=== PATIENT | male | born 1930 | race Caucasian/White ===

== ENCOUNTER 2017-02-28 21:56 | Emergency (ER) | payer MEDICARE, OTHER ==
[2017-02-28] MEDS ORDERED: Sodium Chloride 0.9% 10 ML Syringe FLUSH PRN (22:01)
[2017-02-28] MEDS ORDERED: Famotidine 20 MG/2 ML SDV IVPUSH ONE (22:01)
--- NOTE | 2017-02-28 22:07 | EDM.PDOC ---
ED HPI GENERAL MEDICAL PROBLEM - General Chief Complaint: General Stated Complaint: Stroke Time Seen by Provider: 02/28/17 22:01 Source of Information: Reports: Patient, Family (, daughter x2), Old records ([facility] chart/EMR) History Limitations: Reports: No limitations - History of Present Illness INITIAL COMMENTS - FREE TEXT/NARRATIVE: The patient was brought to the emergency room via private automobile by his and 2 daughters for evaluation of a probable TIA versus CVA. The patient experienced some moderate speech apraxia at about 19:00 hours this evening with symptoms lasting for about 45 minutes. No history of fall, injury, headaches, visual changes, or other neurological deficits with the patient walking into the emergency room with no difficulty. He does normally use a cane. The patient denies any chest pain/pressure, heart flutter, dizziness, orthostasis, orthopnea, diaphoresis, paresthesias, recent decreased exercise tolerance, or any other anginal-type symptoms. No recent history of abdominal pain, heartburn , nausea, diarrhea, melena, gross hematochezia, or any food intolerance, including fatty foods, etc.. The patient also denies any recent fever, cough, wheezing, dyspnea, etc.. 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 (see below) (None) - Related Data Allergies Allergy/AdvReac Type Severity Reaction Status Date / Time Penicillins Allergy Hives Verified 10/30/15 00:22 Bipnsdl-Rep-Jft Reductase Allergy Hives Verified 10/30/15 00:22 Inhibitor Sulfa (Sulfonamide Allergy Hives Verified 10/30/15 00:22 Antibiotics) Home Meds: Home Meds Acetaminophen [Tylenol] 325 - 650 mg PO Q4HR PRN 05/11/14 [History] Clopidogrel [Plavix] 75 mg PO QAM 05/11/14 [History] Docusate Sodium [Colace] 100 mg PO DAILY 05/11/14 [History] Fluticasone Propionate [Flonase] 16 gm NS BID 05/11/14 [History] Levothyroxine 112 mcg PO QAM 05/11/14 [History] Metoprolol Tartrate 25 mg PO QPM 05/11/14 [History] Nitroglycerin [Nitrostat] 0.4 mg SL ASDIRECTED PRN 05/11/14 [History] Omeprazole 20 mg PO QAM 05/11/14 [History] Aspirin [Bret Chewable Aspirin] 81 mg PO DAILY 12/16/14 [History] Past Medical History HEENT History: Reports: Allergic rhinitis, Cataract, Hard of hearing, Impaired vision, Macular degeneration, Other (see below). 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 Denies : Afib, Aneurysm, Blood clots/VTE/DVT, Heart murmur, Pacemaker Other Cardiovascular History: DC in September 2012 with cardiac procedures as below, history of PACs and chronic bradycardia with secondary near syncope, borderline incomplete right bundle branch block Respiratory History: Reports: COPD, Intubation, previous, Other (see below). Denies: Intubation, difficult, PE, Sleep apnea Other Respiratory History: COPD and pulmonary fibrosis by chest x-ray with no current medical therapy Gastrointestinal History: Reports: Chronic constipation, Gastritis, GERD, Hiatal hernia. Denies: Hepatitis Genitourinary History: Reports: BPH. Denies: Chronic renal insuffiency, Renal calculus, STD, Urinary incontinence Musculoskeletal History: Reports: Back pain, chronic, Fracture, Osteoarthritis, Other (see below) Other Musculoskeletal History: Chronic Low back pain with low back injury in the , fracture of the right wrist Neurological History: Reports: None. Denies: Cerebral aneurysms, CVA, Headaches , chronic, Migraines, Seizure, TIA Psychiatric History: Reports: Anxiety, Depression Endocrine/Metabolic History: Reports: Hypothyroidism. Denies: Diabetes, type I , Diabetes, type II, IDDM Hematologic History: Reports: None. Denies: Anemia, Blood transfusion(s) Immunologic History: Reports: None. Denies: AIDS, HIV, SLE Oncologic (Cancer) History: Reports: Basal cell carcinoma, Other (see below). Denies: Colon, Hodgkin's Lymphoma, Leukemia, Malignant melanoma, Non-Hodgkin's Lymphoma, Prostate Other Oncologic History: Basal cell carcinoma of the right cheek in about 2009, actinic keratosis Dermatologic History: Reports: Other (see below). Denies: Eczema, Psoriasis Other Dermatologic History: Skin cancer and actinic keratosis as above - Infectious Disease History Infectious Disease History: Reports: Chicken pox. Denies: C-difficile, Measles , MRSA, Mumps, Pertussis (whooping cough), Rheumatic Fever, Rubella, Scarlet fever, VRE - Past Surgical History Head Surgeries/Procedures: Reports: None HEENT Surgical History: Reports: Cataract surgery, Oral surgery, Other (see below) Other HEENT Surgeries/Procedures: Right-sided cataract surgery in January 2012 with left-sided cataract surgery in about 2014, multiple teeth extractions with only a few remaining lowers and complete upper dentures Cardiovascular Surgical History: Reports: Coronary artery bypass, Coronary artery stent, Other (see below). Denies: Pacer Other Cardiovascular Surgeries/Procedures: PTCA/stents x2 on 10/02/12 Respiratory Surgical History: Reports: None GI Surgical History: Reports: Hernia, inguinal, Other (see below) Other GI Surgeries/Procedures: Left inguinal hernia repair in the - Past Imaging History Past Imaging History: Reports: Stress testing (Low level cardiac stress test on 11/29/12) Social & Family History - Family History Cardiac: Reports: CAD, Heart failure, DC, Other (see below) Other Cardiac Family History: Mother with fatal CHF in her mid 70s, father with fatal DC in his early 70s - Tobacco Use Smoking Status *Q: Former Smoker Tobacco Use Within Last Twelve Months: No Years of Tobacco use: 6 Packs/Tins Daily: 1 (Stopped smoking in 1964) Used Tobacco, but Quit: Yes Month Tobacco Last Used: 1964 Second Hand Smoke Exposure: No Second Hand Smoke Education Provided: No - Alcohol Use Alcohol Use History: Yes Days Per Week of Alcohol Use: 7 (No previous DWIs, problems with alcohol abuse, etc.) Number of Drinks Per Day: 1 Total Drinks Per Week: 7 Alcohol Use in Last Twelve Months: Yes Alcohol Use Frequency: Socially - Recreational Drug Use Recreational Drug Use: No Drug Use in Last 12 Months: No - Living Situation & Occupation Living situation: Reports: (1952, 4 children), with family () 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 Denies: Dental pain, Ear discharge, Ear pain, Eye discharge, Eye pain, Nose pain, Rhinitis, Sinus problem, Throat pain, Throat swelling, Vertigo, Vision change Respiratory: Reports: No Symptoms. Denies: Shortness of Breath, Wheezing, Pleuritic Chest Pain, Cough, Sputum Cardiovascular: Reports: No symptoms. Denies: Chest pain, Blood pressure problem, Claudication, Dyspnea on exertion, Edema, Lightheadedness, Orthopnea, Palpitations, PND, Syncope Endocrine: Reports: no symptoms. Denies: fatigue GI/Abdominal: Reports: No symptoms. Denies: Abdominal pain, Anorexia, Black stool, Bloody stool, Constipation, Diarrhea, Decreased appetite, Difficulty swallowing, Distension, Flatus, Hematemesis, Hematochezia, Melena, Mucous in stool, Nausea, Stool incontinence, Vomiting : Reports: no symptoms. Denies: discharge, dysuria, flank pain, frequency, hematuria, incontinence, irregular menses, pain, urgency, urinary retention Musculoskeletal: Reports: no symptoms. Denies: neck pain, shoulder pain, arm pain, back pain, leg pain Skin: Reports: no symptoms, pruritis. Denies: diaphoresis, bruising, wound Neurological: Reports: Trouble Speaking (Speech apraxia as above), Change in Speech (As above). Denies: Confusion, Dizziness, Headache, Paresthesia, Difficulty Walking, Weakness (Denies), Gait Disturbance Psychiatric: Reports: No symptoms. Denies: Agitation, Anxiety, Confusion, Depression, Hallucinations, Suicidal ideation Hematologic/Lymphatic: Reports: no symptoms Immunologic: Reports: no symptoms ED EXAM, GENERAL - Physical Exam Exam: See Below Exam Limited By: No limitations General Appearance: alert, WD/WN, no apparent distress Eye Exam: bilateral eye: EOMI, normal fundi, normal inspection (No nystagmus), PERRL Ears: normal external exam, normal canal, normal TMs, hearing loss (Severe bilateral presbycusis with the patient not wearing his hearing aids today) Nose: normal inspection, normal mucosa, no blood Throat/Mouth: Normal inspection, Normal lips, Normal gums, Normal oropharynx, Normal voice, No airway compromise. No: Normal teeth (Complete upper dentures with only a few remaining lower dentition in somewhat poor repair), Dysphagia, Perioral cyanosis Head: atraumatic, normocephalic. No: facial swelling, facial tenderness, sinus tenderness Neck: supple, non-tender, full range of motion, carotid bruit (Mild bilateral carotid bruits versus transmitted heart sounds). No: lymphadenopathy (L), lymphadenopathy (R), thyromegaly Respiratory/Chest: no respiratory distress, lungs clear, normal breath sounds, no accessory muscle use, chest non-tender. No: pleural rub, retractions Cardiovascular: normal peripheral pulses, no edema, no gallop, no JVD, no murmur , no rub, systolic murmur (1/6 JORGE A at the aortic valve), extra beats ( Occasional PVCs as below). No: regular rate, rhythm (Regular rate with extrasystoles as below), gallop/S3, gallop/S4, friction rub Peripheral Pulses: 2+: radial (L), radial (R), dorsalis pedis (L), dorsalis pedis (R) GI/Abdominal: normal bowel sounds, soft, non tender, no organomegaly, no distention, no abnormal bruit, no mass. No: guarding, rebound (Male) Exam: Deferred Rectal (Males) Exam: Deferred Back Exam: normal inspection, full range of motion. No: CVA tenderness (L), CVA tenderness (R), muscle spasm Extremities: normal inspection, normal range of motion, non-tender, no pedal edema, normal capillary refill. No: Marlon's Sign Neurological: alert, oriented, CN II-XII intact, normal cognition, normal gait, normal reflexes (Negative Babinski's, finger to nose, and pronator rotation tests. No evidence of facial paresis, tongue deviation, orthostasis, etc.. Excellent reverse thought processes.), other (Borderline left leg weakness and right facial paresis, an NIH score of 1, completely resolved previous speech apraxia) Psychiatric: normal affect, normal mood Skin Exam: Warm, Dry, Intact, Normal color, No rash. No: Diaphoretic, Wound/ incision Lymphatic: no adenopathy EKG INTERPRETATION EKG Date: 02/28/17 Time: 22:14 Rhythm: NSR (With PVCs) Rate (beats/min): 64 [place]: LAD-left axis deviation (Extended left cardiac axis) P-wave: present (Diffuse biphasic P waves with extreme poor R-wave progression in the anterior leads) QRS: wide (QRS interval of 0.10 seconds representing repolarization changes) ST-T: normal QT: normal OR/PQ Interval: 0.19 seconds Comparison: no change (From previous EKG on 03/14/15) EKG Interpretation Comments: 1. No acute ischemic changes 2. PVCs Course - Vital Signs Last Recorded V/S: Last Vital Signs Temp 36.8 C 02/28/17 21:57 Pulse 67 02/28/17 22:01 Resp 18 02/28/17 22:01 BP 150/81 H 02/28/17 22:01 Pulse Ox 97 02/28/17 22:01 Vital Signs - 24 hr 02/28/17 02/28/17 02/28/17 21:57 22:01 22:25 Temperature [ 36.8 C 37.0 C Oral] Pulse, 65 67 64 Peripheral [ Left Pulse Oximetry] Respiratory 20 18 16 Rate Blood Pressure 150/81 H 150/81 H 151/74 H [Right Upper Arm] O2 Sat by Pulse 100 97 97 Oximetry 02/28/17 02/28/17 22:55 23:05 Temperature [ Oral] Pulse, 63 64 Peripheral [ Left Pulse Oximetry] Respiratory 16 15 Rate Blood Pressure 160/77 H 151/72 H [Right Upper Arm] O2 Sat by Pulse 98 97 Oximetry - Orders/Labs/Meds Orders: Active Orders 24 hr Category Date Time Status Blood Glucose Check, Bedside [RC] STAT Care 02/28/17 22:01 Active Cardiac Monitoring [RC] STAT Care 02/28/17 22:01 Active EKG Documentation Completion [RC] ASDIRECTED Care 02/28/17 22:01 Active NIH Stroke Scale [RC] ASDIRECTED Care 02/28/17 22:01 Active Oxygen Therapy, ED [RC] CONTINUOUS Care 02/28/17 22:01 Active Peripheral IV Care [RC] . DIRECTED Care 02/28/17 22:01 Active Pulse Oximetry [RC] CONTINUOUS Care 02/28/17 22:01 Active Up With Assistance [RC] ASDIRECTED Care 02/28/17 22:01 Active Vital Signs [RC] PFP Care 02/28/17 22:01 Active Nothing per Oral Now Diet [DIET] Diet 02/28/17 Breakfast Active Chest 1V Frontal [CR] Stat Exams 02/28/17 22:01 Taken Head wo Cont [CT] Stat Exams 02/28/17 22:01 Taken PROLACTIN [REF] Stat Lab 02/28/17 22:01 Ordered Sodium Chloride 0.9% [Saline Flush] Med 02/28/17 22:01 Active 10 ml FLUSH ASDIRECTED PRN Obtain Past Medical Record [OM.PC] Stat Oth 02/28/17 22:01 Active Peripheral IV Insertion Adult [OM.PC] Stat Oth 02/28/17 22:01 Ordered Resuscitation Status Stat Resus Stat 02/28/17 22:01 Ordered Medication Orders Sodium Chloride (Saline Flush) 10 ml FLUSH ASDIRECTED PRN PRN Reason: Keep Vein Open Labs: Laboratory Tests 02/28/17 02/28/17 02/28/17 Range/Units 22:15 22:15 22:15 WBC 4.8 (4.0-10.2) K/uL RBC 4.82 (4.33-5.41) M/uL Hgb 14.7 (13.1-16.8) g/dL Hct 41.8 (39.0-49.0) % MCV 86.7 (84.0-98.0) fL MCH 30.5 (28.2-33.3) pg MCHC 35.2 (31.7-36.0) g/dL RDW 13.2 (11.2-14.1) % Plt Count 144 L (150-350) K/uL Neut % (Auto) 66.4 (45.0-80.0) % Lymph % (Auto) 22.4 (10.0-50.0) % [place] % (Auto) 8.3 (2.0-14.0) % Eos % (Auto) 2.3 (0.0-5.0) % Baso % (Auto) 0.6 (0.0-2.0) % Neut # (Auto) 3.20 (1.40-7.00) K/uL Lymph # (Auto) 1.08 (0.50-3.50) K/uL [place] # (Auto) 0.40 (0.00-1.00) K/uL Eos # (Auto) 0.11 (0.00-0.50) K/uL Baso # (Auto) 0.03 (0.00-0.20) K/uL PT 11.1 (9.8-11.7) SEC INR 1.0 APTT 26.0 (23.5-30.0) SEC D-Dimer, Quantitative 341 (0-400) ng/mL Sodium (136-145) mmol/L Potassium (3.5-5.1) mmol/L Chloride (98-107) mmol/L Carbon Dioxide (21.0-32.0) mmol/L BUN (7-18) mg/dL Creatinine (0.51-1.17) mg/dL Est Cr Clr Drug Dosing Estimated GFR (MDRD) mL/min Glucose (74-106) mg/dL Lactic Acid (0.4-2.0) mmol/L Uric Acid (2.6-7.2) mg/dL Calcium (8.5-10.1) mg/dL Magnesium (1.8-2.4) mg/dL Total Bilirubin (0.2-1.0) mg/dL AST (15-37) U/L ALT (12-78) U/L Alkaline Phosphatase (46-116) IU/L Creatine Kinase (26-308) U/L Creatine Kinase Index (0.0-2.5) % CK-MB (CK-2) (0.00-3.60) ng/mL Troponin I (0.000-0.056) ng/mL Opi-D-Nmztcscggcr Pept (0-125) pg/mL Total Protein (6.4-8.2) g/dL Albumin (3.4-5.0) g/dL TSH, Ultra Sensitive (0.358-3.740) mIU/mL 02/28/17 02/28/17 Range/Units 22:15 22:15 WBC (4.0-10.2) K/uL RBC (4.33-5.41) M/uL Hgb (13.1-16.8) g/dL Hct (39.0-49.0) % MCV (84.0-98.0) fL MCH (28.2-33.3) pg MCHC (31.7-36.0) g/dL RDW (11.2-14.1) % Plt Count (150-350) K/uL Neut % (Auto) (45.0-80.0) % Lymph % (Auto) (10.0-50.0) % [place] % (Auto) (2.0-14.0) % Eos % (Auto) (0.0-5.0) % Baso % (Auto) (0.0-2.0) % Neut # (Auto) (1.40-7.00) K/uL Lymph # (Auto) (0.50-3.50) K/uL [place] # (Auto) (0.00-1.00) K/uL Eos # (Auto) (0.00-0.50) K/uL Baso # (Auto) (0.00-0.20) K/uL PT (9.8-11.7) SEC INR APTT (23.5-30.0) SEC D-Dimer, Quantitative (0-400) ng/mL Sodium 139 (136-145) mmol/L Potassium 4.3 (3.5-5.1) mmol/L Chloride 103 (98-107) mmol/L Carbon Dioxide 28.2 (21.0-32.0) mmol/L BUN 21 H (7-18) mg/dL Creatinine 1.12 (0.51-1.17) mg/dL Est Cr Clr Drug Dosing TNP Estimated GFR (MDRD) > 60 mL/min Glucose 158 H (74-106) mg/dL Lactic Acid 1.7 (0.4-2.0) mmol/L Uric Acid 5.5 (2.6-7.2) mg/dL Calcium 8.6 (8.5-10.1) mg/dL Magnesium 2.1 (1.8-2.4) mg/dL Total Bilirubin 0.8 (0.2-1.0) mg/dL AST 28 (15-37) U/L ALT 37 (12-78) U/L Alkaline Phosphatase 79 (46-116) IU/L Creatine Kinase 60 (26-308) U/L Creatine Kinase Index 2.3 (0.0-2.5) % CK-MB (CK-2) 1.40 (0.00-3.60) ng/mL Troponin I 0.000 (0.000-0.056) ng/mL Evd-C-Dzjloruucwn Pept 371 H (0-125) pg/mL Total Protein 7.1 (6.4-8.2) g/dL Albumin 3.9 (3.4-5.0) g/dL TSH, Ultra Sensitive 3.557 (0.358-3.740) mIU/mL Stat Accu-Chek of 161 mg percent on arrival Meds: Medications Generic Name Dose Route Start Last Admin Trade Name Freq PRN Reason Stop Dose Admin Sodium Chloride 10 ml 02/28/17 22:01 Saline Flush FLUSH ASDIRECTED PRN Keep Vein Open Discontinued Medications Generic Name Dose Route Start Last Admin Trade Name Freq PRN Reason Stop Dose Admin Famotidine 40 mg 02/28/17 22:01 02/28/17 22:23 Pepcid IVPUSH 02/28/17 22:02 40 mg ONETIME ONE Administration - Radiology Interpretation Free Text/Narrative:: alarm security or surveillance monitor showed normal sinus rhythm with heart rate in the 60s with frequent mostly uniform PVCs with occasional multiform PVCs also present Chest x-ray, portable, shows evidence of moderate COPD and pulmonary fibrotic changes with probable pulmonary hypertension and mild centralized CHF. No cardiomegaly, pulmonary infiltrates, pneumothorax, Telephone consultation at 22:23 hours with the radiology department at [facility]. Preliminary verbal report of CT scan of the head without contrast shows no acute changes including CVA, hemorrhages, etc. CT Results Date: 02/28/17 CT Results Time: 22:23 Departure - Departure Time of Disposition: 23:05 Disposition: DC/Tfer to Acute Hospital 02 Condition: good Clinical Impression: PVCs (premature ventricular contractions), Peptic reflux disease, Hyperglycemia , Thrombocytopenia, HTN, Benign hypertension, Hypothyroidism, Coronary arteriosclerosis, CAD, Mixed anxiety and depressive disorder TIA (transient ischemic attack) Qualifiers: Transient cerebral ischemia type: unspecified Qualified Code(s): G45.9 - Transient cerebral ischemic attack, unspecified CHF (congestive heart failure) Qualifiers: Congestive heart failure type: unspecified congestive heart failure type Congestive heart failure chronicity: acute on chronic Qualified Code(s): I50.9 - Heart failure, unspecified Hyperlipidemia Qualifiers: Hyperlipidemia type: unspecified Qualified Code(s): E78.5 - Hyperlipidemia, unspecified Forms: ED Department Discharge, Interfacility Transfer EMTALA - Problem List & Annotations (1) TIA (transient ischemic attack) SNOMED Code(s): 871533102, 310499893 Code(s): G45.9 - TRANSIENT CEREBRAL ISCHEMIC ATTACK, UNSPECIFIED Status: Acute Priority: High Current Visit: Yes Onset Date: 02/28/17 Annotation/ Comment:: Probable TIA based on clinical course and history as above. Stroke code called by me after initial telephone consultation with the ER nurse. Initial telephone consultation at 22:[address] Hubbard, neurologist at [facility], who did not accept the patient for further evaluation , including MRA/MRI of the head and neck as requested. He did not feel that the patient was an interventional candidate with no beds available in that facility, although he was aware that I did call a stroke code. Subsequent telephone consultation at 22:[address] Adams, neurologist at [facility], who does accept the patient for further treatment and evaluation as above. No TPA or ASA at this time per his instructions. Minimal neurological findings as above with stable vital signs and neurological status at discharge Qualifiers: Transient cerebral ischemia type: unspecified Qualified Code(s): G45.9 - Transient cerebral ischemic attack, unspecified (2) CHF (congestive heart failure) SNOMED Code(s): 85606688 Code(s): I50.9 - HEART FAILURE, UNSPECIFIED Status: Chronic Priority: Medium Current Visit: Yes Onset Date: 02/28/17 Annotation/Comment:: Mild BNP elevation and mild CHF by chest x-ray with no chest pain or anginal complaints. EKG and cardiac enzymes are otherwise normal with no d-dimer elevation, etc. Continue to observe closely with further workup depending on his clinical course Qualifiers: Congestive heart failure type: unspecified congestive heart failure type Congestive heart failure chronicity: acute on chronic Qualified Code(s): I50.9 - Heart failure, unspecified (3) Coronary arteriosclerosis, CAD SNOMED Code(s): 11180423 Code(s): I25.10 - ATHSCL HEART DISEASE OF [place] CORONARY ARTERY W/O ANG PCTRS Status: Chronic Priority: Medium Current Visit: Yes Annotation/ Comment:: As above. No chest pain or anginal complaints. Chest pain protocol not initiated in the emergency secondary to absence of anginal-type symptoms (4) HTN, Benign hypertension SNOMED Code(s): 21865413 Code(s): I10 - ESSENTIAL (PRIMARY) HYPERTENSION Status: Acute Priority: Medium Current Visit: Yes Annotation/Comment:: Blood pressure somewhat elevated in the emergency room however adequate control. Continue close followup by his regular providers at the [facility] (5) Hyperglycemia SNOMED Code(s): 03289769 Code(s): R73.9 - HYPERGLYCEMIA, UNSPECIFIED Status: Acute Priority: Medium Current Visit: Yes Onset Date: ~02/28/17 Annotation/Comment:: Consider glycosylated hemoglobin by accepting physicians (6) Hyperlipidemia SNOMED Code(s): 69541965 Code(s): E78.5 - HYPERLIPIDEMIA, UNSPECIFIED Status: Chronic Priority: Medium Current Visit: Yes Annotation/Comment:: Consider lipid panel by accepting physicians Qualifiers: Hyperlipidemia type: unspecified Qualified Code(s): E78.5 - Hyperlipidemia , unspecified (7) Mixed anxiety and depressive disorder SNOMED Code(s): 253123627 Code(s): F41.8 - OTHER SPECIFIED ANXIETY DISORDERS Status: Chronic Priority: Medium Current Visit: Yes Annotation/Comment:: Stable by patient history (8) PVCs (premature ventricular contractions) SNOMED Code(s): 83021965 Code(s): I49.3 - VENTRICULAR PREMATURE DEPOLARIZATION Status: Acute Priority: High Current Visit: Yes Onset Date: 02/28/17 Annotation/Comment: : Newly diagnosed with previous history of borderline incomplete right bundle branch block, chronic bradycardia, and PACs. Observe for now (9) Peptic reflux disease SNOMED Code(s): 95432077 Code(s): K21.9 - GASTRO-ESOPHAGEAL REFLUX DISEASE WITHOUT ESOPHAGITIS Status: Chronic Priority: Medium Current Visit: No Annotation/Comment:: No current anemia or abdominal complaints. IV Pepcid given as GI prophylaxis (10) Thrombocytopenia SNOMED Code(s): 625661537 Code(s): D69.6 - THROMBOCYTOPENIA, UNSPECIFIED Status: Acute Priority: Medium Current Visit: Yes Onset Date: 02/28/17 Annotation/Comment:: Mild thrombocytopenia. Observe for now - Problem List Review Problem List Initiated/Reviewed/Updated: Yes - My Orders Last 24 Hours: My Active Orders 02/28/17 22:01 Blood Glucose Check, Bedside [RC] STAT Cardiac Monitoring [RC] STAT EKG Documentation Completion [RC] ASDIRECTED NIH Stroke Scale [RC] ASDIRECTED Oxygen Therapy, ED [RC] CONTINUOUS Peripheral IV Care [RC] . DIRECTED Pulse Oximetry [RC] CONTINUOUS Up With Assistance [RC] ASDIRECTED Vital Signs [RC] PFP Chest 1V Frontal [CR] Stat Head wo Cont [CT] Stat PROLACTIN [REF] Stat Sodium Chloride 0.9% [Saline Flush] 10 ml FLUSH ASDIRECTED PRN Obtain Past Medical Record [OM.PC] Stat Peripheral IV Insertion Adult [OM.PC] Stat Resuscitation Status Stat 02/28/17 Breakfast Nothing per Oral Now Diet [DIET] - Assessment/Plan Last 24 Hours: My Active Orders 02/28/17 22:01 Blood Glucose Check, Bedside [RC] STAT Cardiac Monitoring [RC] STAT EKG Documentation Completion [RC] ASDIRECTED NIH Stroke Scale [RC] ASDIRECTED Oxygen Therapy, ED [RC] CONTINUOUS Peripheral IV Care [RC] . DIRECTED Pulse Oximetry [RC] CONTINUOUS Up With Assistance [RC] ASDIRECTED Vital Signs [RC] PFP Chest 1V Frontal [CR] Stat Head wo Cont [CT] Stat PROLACTIN [REF] Stat Sodium Chloride 0.9% [Saline Flush] 10 ml FLUSH ASDIRECTED PRN Obtain Past Medical Record [OM.PC] Stat Peripheral IV Insertion Adult [OM.PC] Stat Resuscitation Status Stat 02/28/17 Breakfast Nothing per Oral Now Diet [DIET] Assessment:: As above Plan: As above. Extensive precautions were given to the patient and his family, who are in agreement with the treatment plan. Ambulance transfer with landscaping manager accompaniment
[2017-02-28 22:46] LABS: CHLORIDE,CL 103 mmol/L (98-107); SODIUM,NA 139 mmol/L (136-145)
[2017-02-28 23:06] VITALS: BP 151/72
== END 2017-02-28 23:05 ==
LOC: LL.ED 21:56
DX: G45.9 Transient cerebral ischemic attack, unspecified (principal); I11.0 Hypertensive heart disease with heart failure; I50.9 Heart failure, unspecified; E78.5 Hyperlipidemia, unspecified; I49.3 Ventricular premature depolarization; E10.65 Type 1 diabetes mellitus with hyperglycemia; Z87.891 Personal history of nicotine dependence; I25.10 Atherosclerotic heart disease of native coronary artery without angina pectoris; K21.9 Gastro-esophageal reflux disease without esophagitis; D69.6 Thrombocytopenia, unspecified; F41.8 Other specified anxiety disorders; Z88.0 Allergy status to penicillin; Z88.2 Allergy status to sulfonamides; Z79.899 Other long term (current) drug therapy; Z98.890 Other specified postprocedural states
CPT/HCPCS: 36415; 70450; 71010; 80053; 82550; 82553; 83605; 83735; 83880; 84146; 84443; 84484; 84550; 85025; 85379; 85610; 85730; 93005; 96374; 99285; S0028

== ENCOUNTER 2017-05-21 21:35 | Emergency (ER) | payer OTHER ==
--- NOTE | 2017-05-21 21:47 | EDM.PDOC ---
ED HPI GENERAL MEDICAL PROBLEM - General Chief Complaint: General Stated Complaint: weakness, shaking Time Seen by Provider: 05/21/17 21:40 Source of Information: Reports: Patient History Limitations: Reports: No Limitations - History of Present Illness INITIAL COMMENTS - FREE TEXT/NARRATIVE: Patient came to ER as he had an episode this evening at home where he felt weak and somewhat skaky. He was sitting in his reclining chair at that time. Denies similar episodes. [place] fine during the day. By the time he arrived at the ER he felt back to normal. Denies any other accompanying symptoms such as chest pain, other pain, SOB, sweating, nausea. - Related Data Allergies Allergy/AdvReac Type Severity Reaction Status Date / Time Penicillins Allergy Hives Verified 05/21/17 21:37 [id number]-Nhf-Hrx Reductase Allergy Hives Verified 05/21/17 21:37 Inhibitor Sulfa (Sulfonamide Allergy Hives Verified 05/21/17 21:37 Antibiotics) Home Meds: Home Meds Acetaminophen [Tylenol] 325 - 650 mg PO Q4HR PRN 05/11/14 [History] Clopidogrel [Plavix] 75 mg PO QAM 05/11/14 [History] Docusate Sodium [Colace] 100 mg PO DAILY 05/11/14 [History] Fluticasone Propionate [Flonase] 16 gm NS BID 05/11/14 [History] Levothyroxine 112 mcg PO QAM 05/11/14 [History] Metoprolol Tartrate 25 mg PO QPM 05/11/14 [History] Nitroglycerin [Nitrostat] 0.4 mg SL ASDIRECTED PRN 05/11/14 [History] Omeprazole 20 mg PO QAM 05/11/14 [History] Aspirin [Bret Chewable Aspirin] 81 mg PO DAILY 12/16/14 [History] Past Medical History HEENT History: Reports: Allergic Rhinitis, Cataract, Hard of Hearing, Impaired Vision, Macular Degeneration, Other (See Below) Other HEENT History: 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, patient wears glasses Cardiovascular History: Reports: Arrhythmia, CAD, Heart Failure, High Cholesterol, Hypertension, MS, PTCA, Stents, Syncope, Other (See Below) Other Cardiovascular History: MS in September 2012 with cardiac procedures as below, history of PACs and chronic bradycardia with secondary near syncope, borderline incomplete right bundle branch block Respiratory History: Reports: COPD Other Respiratory History: COPD and pulmonary fibrosis by chest x-ray with no current medical therapy Gastrointestinal History: Reports: Chronic Constipation, Gastritis, GERD, Hiatal Hernia Genitourinary History: Reports: BPH Musculoskeletal History: Reports: Back Pain, Chronic, Fracture, Osteoarthritis, Other (See Below) Other Musculoskeletal History: Chronic Low back pain with low back injury in the , fracture of the right wrist Neurological History: Reports: None Psychiatric History: Reports: Anxiety, Depression Endocrine/Metabolic History: Reports: Hypothyroidism Hematologic History: Reports: None Immunologic History: Reports: None Oncologic (Cancer) History: Reports: Basal Cell Carcinoma, Other (See Below) Other Oncologic History: Basal cell carcinoma of the right cheek in about 2009, actinic keratosis Dermatologic History: Reports: Other (See Below) Other Dermatologic History: Skin cancer and actinic keratosis as above - Infectious Disease History Infectious Disease History: Reports: Chicken Pox - Past Surgical History HEENT Surgical History: Reports: Cataract Surgery, Oral Surgery, Other (See Below) Cardiovascular Surgical History: Reports: Coronary Artery Bypass, Coronary Artery Stent, Other (See Below) GI Surgical History: Reports: Hernia, Inguinal, Other (See Below) - Past Imaging History Past Imaging History: Reports: Stress Testing Social & Family History - Family History Cardiac: Reports: CAD, Heart Failure, MS, Other (See Below) Other Cardiac Family History: Mother with fatal CHF in her mid 70s, father with fatal MS in his early 70s - Tobacco Use Smoking Status *Q: Former Smoker Years of Tobacco use: 6 Packs/Tins Daily: 1 (Stopped smoking in 1964) Used Tobacco, but Quit: Yes Month Tobacco Last Used: 1964 Second Hand Smoke Exposure: No - Alcohol Use Days Per Week of Alcohol Use: 7 (No previous DWIs, problems with alcohol abuse, etc.) Number of Drinks Per Day: 1 Total Drinks Per Week: 7 - Recreational Drug Use Recreational Drug Use: No Drug Use in Last 12 Months: No - Living Situation & Occupation Living situation: Reports: , with Family Occupation: Retired ED ROS GENERAL - Review of Systems Review Of Systems: See Below Constitutional: Reports: Weakness (see HPI, resolved. Generalized in nature). Denies: Fever, Chills, Malaise, Fatigue, Night Sweats, Diaphoresis, Decreased Appetite, Weight Loss HEENT: Reports: No Symptoms Respiratory: Reports: No Symptoms. Denies: Shortness of Breath, Cough Cardiovascular: Reports: No Symptoms. Denies: Chest Pain, Dyspnea on Exertion, Edema, Lightheadedness, Palpitations, Syncope GI/Abdominal: Reports: No Symptoms : Reports: No Symptoms Musculoskeletal: Reports: No Symptoms Skin: Reports: No Symptoms Neurological: Denies: Confusion, Dizziness, Headache, Numbness, Paresthesia, Syncope, Tingling, Trouble Speaking, Difficulty Walking, Gait Disturbance Psychiatric: Reports: No Symptoms Hematologic/Lymphatic: Reports: No Symptoms ED EXAM, GENERAL - Physical Exam Exam: See Below Exam Limited By: No Limitations General Appearance: Alert, No Apparent Distress, Thin, Other (Ambulated into ER. Able to sit down/lay down/change positions well. ) Eye Exam: Bilateral Eye: EOMI, PERRL Ears: Normal External Exam Nose: No: Nasal Swelling, Nasal Drainage Throat/Mouth: Normal Inspection, Normal Lips, Normal Voice, No Airway Compromise Head: Atraumatic, Normocephalic Neck: Normal Inspection, Supple, Non-Tender, Full Range of Motion. No: Carotid Bruit, Lymphadenopathy (L), Lymphadenopathy (R) Respiratory/Chest: No Respiratory Distress, No Accessory Muscle Use, Chest Non- Tender, Decreased Breath Sounds (throughout) Cardiovascular: Regular Rate, Rhythm, No Edema, No Gallop, No Murmur Peripheral Pulses: 2+: Radial (L), Radial (R) GI/Abdominal: Normal Bowel Sounds, Soft, Non-Tender, No Distention (Male) Exam: Deferred Rectal (Males) Exam: Deferred Back Exam: No: CVA Tenderness (L), CVA Tenderness (R) Extremities: Normal Inspection, Non-Tender, No Pedal Edema, Normal Capillary Refill Neurological: Alert, Oriented, Normal Cognition, Normal Gait (for age), No Motor /Sensory Deficits Psychiatric: Normal Affect, Normal Mood Skin Exam: Warm, Dry, Intact, Normal Color EKG INTERPRETATION EKG Date: 05/21/17 Time: 22:12 Rhythm: Other (Sinus rhythm with occasional PVCs.) Rate (Beats/Min): 60 [place]: Normal P-Wave: Present QRS: Other (low voltage) ST-T: Normal QT: Normal Comparison: No Change Course - Vital Signs Last Recorded V/S: Last Vital Signs Temp 37.1 C 05/21/17 22:05 Pulse 84 07/29/17 22:05 Resp 18 05/21/17 22:05 BP 133/86 05/21/17 22:05 Pulse Ox 95 05/21/17 22:05 - Orders/Labs/Meds Orders: Active Orders 24 hr Category Date Time Status EKG Documentation Completion [RC] ASDIRECTED Care 05/21/17 21:45 Active Chest 1V Frontal [CR] Stat Exams 05/21/17 21:44 Taken CULTURE URINE [RM] Routine Lab 05/21/17 23:09 Uncollected Labs: Laboratory Tests 05/21/17 05/21/17 05/21/17 Range/Units 22:00 22:00 22:00 WBC 5.2 (4.0-10.2) K/uL RBC 4.52 (4.33-5.41) M/uL Hgb 14.0 (13.1-16.8) g/dL Hct 39.5 (39.0-49.0) % MCV 87.4 (84.0-98.0) fL MCH 31.0 (28.2-33.3) pg MCHC 35.4 (31.7-36.0) g/dL RDW 13.3 (11.2-14.1) % Plt Count 139 L (150-350) K/uL Neut % (Auto) 62.3 (45.0-80.0) % Lymph % (Auto) 25.2 (10.0-50.0) % Rich % (Auto) 9.0 (2.0-14.0) % Eos % (Auto) 3.1 (0.0-5.0) % Baso % (Auto) 0.4 (0.0-2.0) % Neut # (Auto) 3.24 (1.40-7.00) K/uL Lymph # (Auto) 1.31 (0.50-3.50) K/uL Rich # (Auto) 0.47 (0.00-1.00) K/uL Eos # (Auto) 0.16 (0.00-0.50) K/uL Baso # (Auto) 0.02 (0.00-0.20) K/uL D-Dimer, Quantitative 255 (0-400) ng/mL Sodium 140 (136-145) mmol/L Potassium 4.3 (3.5-5.1) mmol/L Chloride 106 (98-107) mmol/L Carbon Dioxide 25.8 (21.0-32.0) mmol/L BUN 23 H (7-18) mg/dL Creatinine 1.26 H (0.51-1.17) mg/dL Est Cr Clr Drug Dosing 37.97 mL/min Estimated GFR (MDRD) 54 mL/min Glucose 194 H (74-106) mg/dL Calcium 8.9 (8.5-10.1) mg/dL Total Bilirubin 0.7 (0.2-1.0) mg/dL AST 16 (15-37) U/L ALT 17 (12-78) U/L Alkaline Phosphatase 79 (46-116) IU/L Troponin I 0.000 (0.000-0.056) ng/mL [place] Pept 430 H (0-125) pg/mL Total Protein 6.7 (6.4-8.2) g/dL Albumin 3.7 (3.4-5.0) g/dL Specimen Type Urine Color Urine Appearance Urine pH (5.0-9.0) Ur Specific [place] (1.005-1.030) Urine Protein (NEGATIVE) mg/dL Urine Glucose (UA) (NEGATIVE) mg/dL Urine Ketones (NEGATIVE) mg/dL Urine Occult Blood (NEGATIVE) Urine Nitrite (NEGATIVE) Urine Bilirubin (NEGATIVE) Urine Urobilinogen (0.2-1.0) E.U./dL Ur Leukocyte Esterase (NEGATIVE) Urine RBC /HPF Urine WBC /HPF Ur Epithelial Cells /LPF Other Crystals /HPF Urine Bacteria (NONE TO FEW) /HPF Hyaline Casts (NEGATIVE) /LPF 05/21/17 Range/Units 22:55 WBC (4.0-10.2) K/uL RBC (4.33-5.41) M/uL Hgb (13.1-16.8) g/dL Hct (39.0-49.0) % MCV (84.0-98.0) fL MCH (28.2-33.3) pg MCHC (31.7-36.0) g/dL RDW (11.2-14.1) % Plt Count (150-350) K/uL Neut % (Auto) (45.0-80.0) % Lymph % (Auto) (10.0-50.0) % Rich % (Auto) (2.0-14.0) % Eos % (Auto) (0.0-5.0) % Baso % (Auto) (0.0-2.0) % Neut # (Auto) (1.40-7.00) K/uL Lymph # (Auto) (0.50-3.50) K/uL Rich # (Auto) (0.00-1.00) K/uL Eos # (Auto) (0.00-0.50) K/uL Baso # (Auto) (0.00-0.20) K/uL D-Dimer, Quantitative (0-400) ng/mL Sodium (136-145) mmol/L Potassium (3.5-5.1) mmol/L Chloride (98-107) mmol/L Carbon Dioxide (21.0-32.0) mmol/L BUN (7-18) mg/dL Creatinine (0.51-1.17) mg/dL Est Cr Clr Drug Dosing mL/min Estimated GFR (MDRD) mL/min Glucose (74-106) mg/dL Calcium (8.5-10.1) mg/dL Total Bilirubin (0.2-1.0) mg/dL AST (15-37) U/L ALT (12-78) U/L Alkaline Phosphatase (46-116) IU/L Troponin I (0.000-0.056) ng/mL Ypz-R-Wpcrdcyrzgy Pept (0-125) pg/mL Total Protein (6.4-8.2) g/dL Albumin (3.4-5.0) g/dL Specimen Type Urinblad Urine Color Yellow Urine Appearance Clear Urine pH 6.0 (5.0-9.0) Ur Specific [place] 1.020 (1.005-1.030) Urine Protein Trace H (NEGATIVE) mg/dL Urine Glucose (UA) Negative (NEGATIVE) mg/dL Urine Ketones Negative (NEGATIVE) mg/dL Urine Occult Blood Negative (NEGATIVE) Urine Nitrite Negative (NEGATIVE) Urine Bilirubin Negative (NEGATIVE) Urine Urobilinogen 1.0 (0.2-1.0) E.U./dL Ur Leukocyte Esterase Trace H (NEGATIVE) Urine RBC 0-5 /HPF Urine WBC 5-10 H /HPF Ur Epithelial Cells Few /LPF Other Crystals Few /HPF Urine Bacteria Few (NONE TO FEW) /HPF Hyaline Casts Moderate H (NEGATIVE) /LPF - Radiology Interpretation Free Text/Narrative:: Chest xray overall unchanged from previous chest film taken two months ago. No acute infiltrates. - Re-Assessments/Exams Free Text/Narrative Re-Assessment/Exam: 05/21/17 22:52 Patient continued to feel well throughout stay. Overall unremarkable exam and workup for acute changes. Discussed with patient that we are unable to pinpoint cause of his episode. BP or heart rate changes could contribute to such an episode. It was noted tonight that patient's BUN/Cr and blood sugar continue to creep upwards when compared to previous visits. Plan at this time is to have the patient observe for any more similar episodes or other changes. He is to follow up with his primary provider concerning the blood sugars and may need to have his medications adjusted. It was recommended that if another episode is noted that he take his blood pressure at home using his monitor that he has available. He is also to check his pulse. Departure - Departure Time of Disposition: 22:57 Disposition: Home, Self-Care 01 Condition: Good Clinical Impression: Episode of shaking, Episode of generalized weakness - Discharge Information Referrals: PCP,None [Primary Care Provider] - Forms: ED Department Discharge Additional Instructions: Watch for additional changes. Watch for similar episodes. Take your blood pressure/pulse at home if you experience one. Watch for any new problems or symptoms. Follow up as needed if you have sudden worsening problems. Follow up with your primary provider for you blood sugars. You may need medication to help have better control of the sugars. - My Orders Last 24 Hours: My Active Orders 05/21/17 21:44 Chest 1V Frontal [CR] Stat 05/21/17 21:45 EKG Documentation Completion [RC] ASDIRECTED 05/21/17 23:09 CULTURE URINE [RM] Routine - Assessment/Plan Last 24 Hours: My Active Orders 05/21/17 21:44 Chest 1V Frontal [CR] Stat 05/21/17 21:45 EKG Documentation Completion [RC] ASDIRECTED 05/21/17 23:09 CULTURE URINE [RM] Routine
[2017-05-21 22:06] VITALS: BP 133/86
== END 2017-05-21 23:20 | disposition home or self-care (01) ==
LOC: LL.ED 21:35
DX: R53.1 Weakness (principal); R25.1 Tremor, unspecified; H54.7 Unspecified visual loss; I11.0 Hypertensive heart disease with heart failure; I50.9 Heart failure, unspecified; I25.10 Atherosclerotic heart disease of native coronary artery without angina pectoris; E78.00 Pure hypercholesterolemia, unspecified; I25.2 Old myocardial infarction; J44.9 Chronic obstructive pulmonary disease, unspecified; K21.9 Gastro-esophageal reflux disease without esophagitis; E03.9 Hypothyroidism, unspecified; Z95.5 Presence of coronary angioplasty implant and graft; Z88.2 Allergy status to sulfonamides; Z88.0 Allergy status to penicillin; Z79.899 Other long term (current) drug therapy; Z95.1 Presence of aortocoronary bypass graft; Z79.82 Long term (current) use of aspirin
CPT/HCPCS: 36415; 71010; 80053; 81001; 83880; 84484; 85025; 85379; 93005; 99283; 99285

== ENCOUNTER 2017-09-01 03:49 | Emergency (ER) | payer OTHER ==
[2017-09-01] MEDS ORDERED: Sodium Chloride 0.9% 10 ML Syringe FLUSH PRN (04:17)
[2017-09-01 04:41] LABS: CHLORIDE,CL 104 mmol/L (98-107); SODIUM,NA 140 mmol/L (136-145)
[2017-09-01 04:44] VITALS: BP 137/68
--- NOTE | 2017-09-01 05:28 | EDM.PDOC ---
ED HPI GENERAL MEDICAL PROBLEM - General Chief Complaint: General Stated Complaint: feeling weak and light headed Time Seen by Provider: 09/01/17 04:30 Source of Information: Reports: Patient, Family History Limitations: Reports: No Limitations - History of Present Illness INITIAL COMMENTS - FREE TEXT/NARRATIVE: Patient came in to be seen after he woke up tonight and felt a bit lightheaded/ weak. [place] fine yesterday. Denies any other problems such as cough/fever/GI change/ change. No complaint of pain. No medication changes. No other changes. Was improving by time of arrival to ER. Did mention that he has not been eating/drinking quite as much as usual due to new dentures. - Related Data Allergies Allergy/AdvReac Type Severity Reaction Status Date / Time Penicillins Allergy Hives Verified 09/01/17 04:05 Curqblg-Mqe-Gup Reductase Allergy Hives Verified 09/01/17 04:05 Inhibitor Sulfa (Sulfonamide Allergy Hives Verified 09/01/17 04:05 Antibiotics) Home Meds: Home Meds Acetaminophen [Tylenol] 325 - 650 mg PO Q4HR PRN 05/11/14 [History] Levothyroxine 80 mcg PO QAM 05/11/14 [History] Metoprolol Tartrate 12.5 mg PO QPM 05/11/14 [History] Nitroglycerin [Nitrostat] 0.4 mg SL ASDIRECTED PRN 05/11/14 [History] Aspirin [Bret Chewable Aspirin] 81 mg PO DAILY 12/16/14 [History] Polyethylene Glycol 3350 [MiraLAX] 17 gm PO ASDIRECTED 09/01/17 [History] Past Medical History HEENT History: Reports: Allergic Rhinitis, Cataract, Hard of Hearing, Impaired Vision, Macular Degeneration, Other (See Below) Other HEENT History: 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, patient wears glasses Cardiovascular History: Reports: Arrhythmia, CAD, Heart Failure, High Cholesterol, Hypertension, RI, PTCA, Stents, Syncope, Other (See Below) Other Cardiovascular History: RI in September 2012 with cardiac procedures as below, history of PACs and chronic bradycardia with secondary near syncope, borderline incomplete right bundle branch block Respiratory History: Reports: COPD Other Respiratory History: COPD and pulmonary fibrosis by chest x-ray with no current medical therapy Gastrointestinal History: Reports: Chronic Constipation, Gastritis, GERD, Hiatal Hernia Genitourinary History: Reports: BPH Musculoskeletal History: Reports: Back Pain, Chronic, Fracture, Osteoarthritis, Other (See Below) Other Musculoskeletal History: Chronic Low back pain with low back injury in the , fracture of the right wrist Neurological History: Reports: None Psychiatric History: Reports: Anxiety, Depression Endocrine/Metabolic History: Reports: Hypothyroidism Hematologic History: Reports: None Immunologic History: Reports: None Oncologic (Cancer) History: Reports: Basal Cell Carcinoma, Other (See Below) Other Oncologic History: Basal cell carcinoma of the right cheek in about 2009, actinic keratosis Dermatologic History: Reports: Other (See Below) Other Dermatologic History: Skin cancer and actinic keratosis as above - Infectious Disease History Infectious Disease History: Reports: Chicken Pox - Past Surgical History Head Surgeries/Procedures: Reports: None HEENT Surgical History: Reports: Cataract Surgery, Oral Surgery, Other (See Below) Cardiovascular Surgical History: Reports: Coronary Artery Bypass, Coronary Artery Stent, Other (See Below) GI Surgical History: Reports: Hernia, Inguinal, Other (See Below) - Past Imaging History Past Imaging History: Reports: Stress Testing Social & Family History - Family History Cardiac: Reports: CAD, Heart Failure, RI, Other (See Below) Other Cardiac Family History: Mother with fatal CHF in her mid 70s, father with fatal RI in his early 70s - Tobacco Use Smoking Status *Q: Former Smoker Years of Tobacco use: 6 Packs/Tins Daily: 1 Used Tobacco, but Quit: Yes Month Tobacco Last Used: 1964 Second Hand Smoke Exposure: No - Caffeine Use Caffeine Use: Reports: Coffee - Alcohol Use Days Per Week of Alcohol Use: 7 (No previous DWIs, problems with alcohol abuse, etc.) Number of Drinks Per Day: 1 Total Drinks Per Week: 7 - Recreational Drug Use Recreational Drug Use: No Drug Use in Last 12 Months: No - Living Situation & Occupation Living situation: Reports: , with Family Occupation: Retired ED ROS GENERAL - Review of Systems Review Of Systems: See Below Constitutional: Reports: Weakness. Denies: Fever, Chills, Malaise, Night Sweats , Diaphoresis, Decreased Appetite, Weight Loss, Weight Gain HEENT: Reports: No Symptoms Respiratory: Reports: No Symptoms. Denies: Shortness of Breath, Cough Cardiovascular: Reports: No Symptoms GI/Abdominal: Reports: No Symptoms : Reports: No Symptoms Musculoskeletal: Reports: No Symptoms Skin: Reports: No Symptoms Neurological: Reports: Dizziness. Denies: Confusion, Headache, Numbness, Paresthesia, Seizure, Syncope, Tingling, Tremors, Trouble Speaking, Difficulty Walking, Change in Speech, Gait Disturbance Psychiatric: Reports: No Symptoms ED EXAM, GENERAL - Physical Exam Exam: See Below Exam Limited By: No Limitations General Appearance: Alert, WD/WN, No Apparent Distress Eye Exam: Bilateral Eye: EOMI, PERRL Ears: Normal External Exam, Normal Canal, Hearing Grossly Normal, Normal TMs Nose: Normal Inspection Throat/Mouth: Normal Inspection, Normal Lips, Normal Oropharynx, Normal Voice, No Airway Compromise, Other (dentures) Head: Atraumatic, Normocephalic Neck: Normal Inspection, Supple, Non-Tender, Full Range of Motion. No: Lymphadenopathy (L), Lymphadenopathy (R) Respiratory/Chest: No Respiratory Distress, Lungs Clear, Normal Breath Sounds, No Accessory Muscle Use, Chest Non-Tender Cardiovascular: Normal Peripheral Pulses, Regular Rate, Rhythm, No Edema, No Murmur Peripheral Pulses: 2+: Radial (L), Radial (R), Dorsalis Pedis (L), Dorsalis Pedis (R) GI/Abdominal: Normal Bowel Sounds, Soft, Non-Tender, No Distention, No Mass (Male) Exam: Deferred Rectal (Males) Exam: Deferred Back Exam: Normal Inspection, Full Range of Motion Extremities: Normal Inspection, Normal Range of Motion, Non-Tender, No Pedal Edema, Normal Capillary Refill Neurological: Alert, Oriented, Normal Cognition, Normal Gait, No Motor/Sensory Deficits Psychiatric: Normal Affect, Normal Mood Skin Exam: Warm, Dry, Intact, Normal Color EKG INTERPRETATION EKG Date: 09/01/17 Time: 04:00 Rhythm: NSR Rate (Beats/Min): 60 [place]: LAD-Left [place] Deviation P-Wave: Present QRS: Other (lower voltage) ST-T: Normal QT: Normal Comparison: No Change Course - Vital Signs Last Recorded V/S: Last Vital Signs Temp 36.6 C 09/01/17 03:58 Pulse 55 L 09/01/17 04:44 Resp 12 09/01/17 04:44 BP 137/68 09/01/17 04:44 Pulse Ox 95 09/01/17 04:44 - Orders/Labs/Meds Orders: Active Orders 24 hr Category Date Time Status Cardiac Monitoring [RC] . DIRECTED Care 09/01/17 04:16 Active EKG Documentation Completion [RC] ASDIRECTED Care 09/01/17 04:16 Active TSH ULTRASENSITIVE [CHEM] Stat Lab 09/01/17 05:17 Ordered Sodium Chloride 0.9% [Saline Flush] Med 09/01/17 04:17 Active 10 ml FLUSH ASDIRECTED PRN Saline Lock Insert [OM.PC] Routine Oth 09/01/17 04:17 Ordered EKG 12 Lead [EK] Routine Ther 09/01/17 04:16 Ordered Medication Orders Sodium Chloride (Saline Flush) 10 ml FLUSH ASDIRECTED PRN PRN Reason: Keep Vein Open Labs: Laboratory Tests 09/01/17 09/01/17 Range/Units 04:15 04:15 WBC 5.4 (4.0-10.2) K/uL RBC 4.55 (4.33-5.41) M/uL Hgb 14.0 (13.1-16.8) g/dL Hct 39.6 (39.0-49.0) % MCV 87.0 (84.0-98.0) fL MCH 30.8 (28.2-33.3) pg MCHC 35.4 (31.7-36.0) g/dL RDW 13.0 (11.2-14.1) % Plt Count 161 (150-350) K/uL Neut % (Auto) 57.6 (45.0-80.0) % Lymph % (Auto) 29.8 (10.0-50.0) % [place] % (Auto) 8.7 (2.0-14.0) % Eos % (Auto) 3.5 (0.0-5.0) % Baso % (Auto) 0.4 (0.0-2.0) % Neut # (Auto) 3.12 (1.40-7.00) K/uL Lymph # (Auto) 1.61 (0.50-3.50) K/uL [place] # (Auto) 0.47 (0.00-1.00) K/uL Eos # (Auto) 0.19 (0.00-0.50) K/uL Baso # (Auto) 0.02 (0.00-0.20) K/uL Sodium 140 (136-145) mmol/L Potassium 3.9 (3.5-5.1) mmol/L Chloride 104 (98-107) mmol/L Carbon Dioxide 26.2 (21.0-32.0) mmol/L BUN 19 H (7-18) mg/dL Creatinine 1.04 (0.51-1.17) mg/dL Est Cr Clr Drug Dosing 44.95 mL/min Estimated GFR (MDRD) > 60 mL/min Glucose 113 H (74-106) mg/dL Calcium 9.1 (8.5-10.1) mg/dL Meds: Medications Generic Name Dose Route Start Last Admin Trade Name Freq PRN Reason Stop Dose Admin Sodium Chloride 10 ml 09/01/17 04:17 Saline Flush FLUSH ASDIRECTED PRN Keep Vein Open - Re-Assessments/Exams Free Text/Narrative Re-Assessment/Exam: 09/01/17 05:37 Unremarkable exam, non-focal. Patient got up and ambulated with nursing on standby and said that he felt almost back to normal. Normal CBC and Chem. EKG showed no acute changes. He does have chronic Bradycardia and he has been checked out by Cardiology at the [facility]. Patient usually runs in 50s and was observed to be in this range during his stay. BP also is good range. Discussed with patient that given the brief nature of the symptoms and rapid improvement that it was hard to pinpoint cause. Low BP/bradycardia cannot be rule out. Cannot rule out early viral prodrome or other cause. Plan at this time is to have patient return home and observe for changes. We did go over option to hold his Metoprolol for 5 days and observe for changes or improved feeling of well-being. He is supposed to take that medication twice daily but in actuality only takes it once a day. He and his were open to this and confirmed that they have a BP machine at home and can follow his BPs if he holds the medicine temporarily. He knows he can return as needed if he develops additional problems. Patient and are comfortable with plan. Departure - Departure Time of Disposition: 05:21 Disposition: Home, Self-Care 01 Condition: Good Clinical Impression: Weakness - Discharge Information Referrals: PCP,None [Primary Care Provider] - Forms: ED Department Discharge Additional Instructions: See how you feel over the next few days and if symptoms return, or if new symptoms like a cold or viral illness develop. Follow up as needed. As discussed, your pulse rate appears to be around your usual rate. However, we cannot rule out that it was even lower when you were at home when you didn't feel good. You may wish to try to stop the Metoprolol temporarily and see how you feel, as it can cause both dizziness and low heart rate. Continue to check your blood pressures at home to make certain that they do not get too elevated. If you feel better off the medicine, [facility] and discuss if you still need it or need to be switched to something else if your blood pressure gets too elevated. Follow up otherwise as needed. - My Orders Last 24 Hours: My Active Orders 09/01/17 04:16 Cardiac Monitoring [RC] . DIRECTED EKG Documentation Completion [RC] ASDIRECTED EKG 12 Lead [EK] Routine 09/01/17 04:17 Sodium Chloride 0.9% [Saline Flush] 10 ml FLUSH ASDIRECTED PRN Saline Lock Insert [OM.PC] Routine 09/01/17 05:17 TSH ULTRASENSITIVE [CHEM] Stat - Assessment/Plan Last 24 Hours: My Active Orders 09/01/17 04:16 Cardiac Monitoring [RC] . DIRECTED EKG Documentation Completion [RC] ASDIRECTED EKG 12 Lead [EK] Routine 09/01/17 04:17 Sodium Chloride 0.9% [Saline Flush] 10 ml FLUSH ASDIRECTED PRN Saline Lock Insert [OM.PC] Routine 09/01/17 05:17 TSH ULTRASENSITIVE [CHEM] Stat
== END 2017-09-01 05:42 | disposition home or self-care (01) ==
LOC: LL.ED 03:49
DX: R53.1 Weakness (principal); I11.0 Hypertensive heart disease with heart failure; I50.9 Heart failure, unspecified; I25.10 Atherosclerotic heart disease of native coronary artery without angina pectoris; E78.00 Pure hypercholesterolemia, unspecified; Z85.828 Personal history of other malignant neoplasm of skin; Z95.1 Presence of aortocoronary bypass graft; Z95.5 Presence of coronary angioplasty implant and graft; Z87.891 Personal history of nicotine dependence; Z79.82 Long term (current) use of aspirin; Z79.899 Other long term (current) drug therapy; Z88.0 Allergy status to penicillin; Z88.2 Allergy status to sulfonamides; Z88.8 Allergy status to other drugs, medicaments and biological substances
CPT/HCPCS: 36000; 36415; 80048; 84443; 85025; 93005; 93010; 99284; 99285

== ENCOUNTER 2018-03-09 05:45 | Emergency (ER) | payer OTHER ==
--- NOTE | 2018-03-09 06:29 | EDM.PDOC ---
ED HPI GENERAL MEDICAL PROBLEM - General Chief Complaint: General Stated Complaint: Speech Difficulty Time Seen by Provider: 03/09/18 06:08 Source of Information: Reports: Patient, Family History Limitations: Reports: No Limitations - History of Present Illness INITIAL COMMENTS - FREE TEXT/NARRATIVE: Patient drove self to ER after waking up around 4:30 this morning and finding that he could not speak. Has had TIA in past (around 2 years ago) that presented the same way. He felt fine before going to bed around 10:30pm last night. came along in the car to accompany him. By the time he got to the ER his speech had returned. Was not able to tell nursing staff the date/year but otherwise had unremarkable NIH stroke scale evaluation. Ambulated into the ER without difficulty. No arm drift noted. No other complaints. No recent med changes/illnesses. No headache or focal weakness/numbness. - Related Data Allergies Allergy/AdvReac Type Severity Reaction Status Date / Time Penicillins Allergy Hives Verified 09/01/17 04:05 [id number] Reductase Allergy Hives Verified 09/01/17 04:05 Inhibitor Sulfa (Sulfonamide Allergy Hives Verified 09/01/17 04:05 Antibiotics) Home Meds: Home Meds Acetaminophen [Tylenol] 325 - 650 mg PO Q4HR PRN 05/11/14 [History] Levothyroxine 80 mcg PO QAM 05/11/14 [History] Metoprolol Tartrate 12.5 mg PO QPM 05/11/14 [History] Nitroglycerin [Nitrostat] 0.4 mg SL ASDIRECTED PRN 05/11/14 [History] Aspirin [Bret Chewable Aspirin] 81 mg PO DAILY 12/16/14 [History] Polyethylene Glycol 3350 [MiraLAX] 17 gm PO ASDIRECTED 09/01/17 [History] Past Medical History HEENT History: Reports: Allergic Rhinitis, Cataract, Hard of Hearing, Impaired Vision, Macular Degeneration, Other (See Below) Other HEENT History: 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, patient wears glasses Cardiovascular History: Reports: Arrhythmia, CAD, Heart Failure, High Cholesterol, Hypertension, DE, PTCA, Stents, Syncope, Other (See Below) Other Cardiovascular History: DE in September 2012 with cardiac procedures as below, history of PACs and chronic bradycardia with secondary near syncope, borderline incomplete right bundle branch block Respiratory History: Reports: COPD Other Respiratory History: COPD and pulmonary fibrosis by chest x-ray with no current medical therapy Gastrointestinal History: Reports: Chronic Constipation, Gastritis, GERD, Hiatal Hernia Genitourinary History: Reports: BPH Musculoskeletal History: Reports: Back Pain, Chronic, Fracture, Osteoarthritis, Other (See Below) Other Musculoskeletal History: Chronic Low back pain with low back injury in the , fracture of the right wrist Neurological History: Reports: None Psychiatric History: Reports: Anxiety, Depression Endocrine/Metabolic History: Reports: Hypothyroidism Hematologic History: Reports: None Immunologic History: Reports: None Oncologic (Cancer) History: Reports: Basal Cell Carcinoma, Other (See Below) Other Oncologic History: Basal cell carcinoma of the right cheek in about 2009, actinic keratosis Dermatologic History: Reports: Other (See Below) Other Dermatologic History: Skin cancer and actinic keratosis as above - Infectious Disease History Infectious Disease History: Reports: Chicken Pox - Past Surgical History Head Surgeries/Procedures: Reports: None HEENT Surgical History: Reports: Cataract Surgery, Oral Surgery, Other (See Below) Cardiovascular Surgical History: Reports: Coronary Artery Bypass, Coronary Artery Stent, Other (See Below) GI Surgical History: Reports: Hernia, Inguinal, Other (See Below) - Past Imaging History Past Imaging History: Reports: Stress Testing Social & Family History - Family History Cardiac: Reports: CAD, Heart Failure, DE, Other (See Below) Other Cardiac Family History: Mother with fatal CHF in her mid 70s, father with fatal DE in his early 70s - Caffeine Use Caffeine Use: Reports: Coffee - Living Situation & Occupation Living situation: Reports: , with Family Occupation: Retired ED ROS GENERAL - Review of Systems Review Of Systems: See Below Constitutional: Reports: No Symptoms HEENT: Reports: No Symptoms. Denies: Vision Change Respiratory: Reports: No Symptoms Cardiovascular: Reports: No Symptoms GI/Abdominal: Reports: No Symptoms : Reports: No Symptoms Musculoskeletal: Reports: No Symptoms (no acute changes from baseline) Skin: Reports: No Symptoms Neurological: Reports: Trouble Speaking. Denies: Confusion, Dizziness, Headache , Numbness, Paresthesia, Pre-Existing Deficit, Seizure, Syncope, Tingling, Tremors, Difficulty Walking, Weakness, Gait Disturbance Psychiatric: Reports: No Symptoms Hematologic/Lymphatic: Reports: No Symptoms ED EXAM, GENERAL - Physical Exam Exam: See Below Exam Limited By: No Limitations General Appearance: Alert, WD/WN, No Apparent Distress Eye Exam: Bilateral Eye: EOMI, PERRL Ears: Normal External Exam Nose: No: Nasal Deformity, Nasal Swelling, Nasal Drainage Throat/Mouth: Normal Lips, Normal Voice, No Airway Compromise Head: Atraumatic, Normocephalic Neck: Supple Respiratory/Chest: No Respiratory Distress, Lungs Clear, Normal Breath Sounds, No Accessory Muscle Use Cardiovascular: Normal Peripheral Pulses, Regular Rate, Rhythm, No Edema, No Murmur Peripheral Pulses: 2+: Radial (L), Radial (R) GI/Abdominal: Normal Bowel Sounds, Soft, Non-Tender, No Distention (Male) Exam: Deferred Rectal (Males) Exam: Deferred Back Exam: No: CVA Tenderness (L), CVA Tenderness (R), Muscle Spasm Extremities: Normal Inspection, Normal Range of Motion, Non-Tender, No Pedal Edema, Normal Capillary Refill Neurological: Alert, Oriented, CN II-XII Intact, Normal Cognition, Normal Gait, Normal Reflexes, No Motor/Sensory Deficits Psychiatric: Normal Affect, Normal Mood Skin Exam: Warm, Dry, Intact, Normal Color EKG INTERPRETATION EKG Date: 03/09/18 Time: 06:33 Rhythm: Other (Sinus Bradycardia) Rate (Beats/Min): 68 What Cheer: Normal P-Wave: Present QRS: Normal ST-T: Normal QT: Normal Comparison: Change From Previous EKG (Patient usually has heart rate in 60s. Intermittent PVCs noted and these have been present on some prior EKGs. Today had some sinus arrhythmia which has not been seen on previous EKGs.) Course - Orders/Labs/Meds Orders: Active Orders 24 hr Category Date Time Status Head wo Cont [CT] Stat Exams 03/09/18 05:48 Ordered - Radiology Interpretation CT Results Date: 03/09/18 CT Results Time: 06:49 - Re-Assessments/Exams Free Text/Narrative Re-Assessment/Exam: 03/09/18 06:[address] Patient sent immediately to [address] scan. Labs drawn once he returned to the ER. Once back in the ER patient able to tell nursing staff day/date successfully. Stated that he felt back to normal. Free Text/Narrative Re-Assessment/Exam: 03/09/18 06:[address] acute changes on CT per Radiology. Patient remains back to baseline. Call placed to [place] and spoke to /CIERA concerning possible referral to [facility] for additional workup/MRI. At this time [facility] are [facility] or be referred to [facility]. Free Text/Narrative Re-Assessment/Exam: 07:28 Discuused pt with , [facility] for [place]. He had spoken to their Neurologist, who in turn preferred that pt be transferred to a facility capable of interventional procedures. Call then placed to [facility], spoke to /Neurology. He felt that given all symptoms have reversed and patient back to baseline, patient able to go home and have MRI/MRA as outpatient. Also recommended that he be scheduled for new echo. Patient given choice of going home vs admission to Obs for 24 hours. Patient and chose to go home. Extensive precautions reviewed prior to discharge. Recommended calling ambulance if stroke signs noted again instead of driving self in to ER to be seen. Appointments for both MRI/MRA of brain as well as cardiac/carotid US made for early next week Patient remained stable and without complaints/symptoms in the ER for remainder of stay. Departure - Departure Time of Disposition: 08:05 Disposition: Home, Self-Care 01 Condition: Good Clinical Impression: TIA (transient ischemic attack) Qualifiers: Transient cerebral ischemia type: unspecified Qualified Code(s): G45.9 - Transient cerebral ischemic attack, unspecified - Discharge Information Instructions: Transient Ischemic Attack, [id number] Referrals: PCP,Unobtain [Primary Care Provider] - Additional Instructions: [facility] to [facility] your missed test that was scheduled for later today. We have you scheduled for two tests. Tuesday 03/13 come in for MRI/MRA of brain at 11am Wednesday 03/14 come in for cardiac/carotid study at 12pm Make an appointment with [place] for follow up later next week or the following week so that you can touch base with your provider about how you are doing and go over the results of the above tests. Return to ER if symptoms return/new stroke like symptoms. Call the ambulance. You should NOT be driving yourself if you think you are having a TIA or stroke. Follow up otherwise as needed - My Orders Last 24 Hours: My Active Orders 03/09/18 05:48 Head wo Cont [CT] Stat - Assessment/Plan Last 24 Hours: My Active Orders 03/09/18 05:48 Head wo Cont [CT] Stat
[2018-03-09 06:49] LABS: CHLORIDE,CL 104 mmol/L (98-107); SODIUM,NA 142 mmol/L (136-145)
== END 2018-03-09 08:40 | disposition home or self-care (01) ==
LOC: LL.ED 05:45
DX: G45.9 Transient cerebral ischemic attack, unspecified (principal); I11.0 Hypertensive heart disease with heart failure; I50.9 Heart failure, unspecified; J44.9 Chronic obstructive pulmonary disease, unspecified; Z88.0 Allergy status to penicillin; Z88.2 Allergy status to sulfonamides; Z79.82 Long term (current) use of aspirin; Z88.8 Allergy status to other drugs, medicaments and biological substances
CPT/HCPCS: 36000; 36415; 70450; 80053; 82550; 82553; 83735; 83880; 84146; 84484; 85025; 85379; 85610; 85730; 93005; 99291

== ENCOUNTER 2018-04-18 11:26 | Emergency (ER) | payer OTHER ==
--- NOTE | 2018-04-18 11:29 | EDM.PDOC ---
ED HPI GENERAL MEDICAL PROBLEM - General Chief Complaint: Neurological Problem Stated Complaint: Neurological Symptoms Time Seen by Provider: 04/18/18 11:26 Source of Information: Reports: Patient, Family (Daughter, ), Old Records ( [facility] chart/EMR) History Limitations: Reports: Altered Mental Status - History of Present Illness INITIAL COMMENTS - FREE TEXT/NARRATIVE: The patient was brought to the emergency room via private automobile by his daughter and for evaluation of possible recurrent TIA with patient awakening at about 4 AM this morning with some brief dysarthria and logorhea. He has had at least 2 TIAs in the past with patient having similar symptoms on with emergency room evaluation in this facility at that time. Note negative subsequent MRI of the brain on 03/13/18 as below. The patient, his , and his daughter are all extremely poor historians. Per his daughter the patient has been experiencing some nonspecific visual hallucinations during the last 3 months. The patient refused to come to the emergency room earlier this morning with completely resolved symptoms at time of arrival to this facility. The patient denies any chest pain/pressure, heart flutter, dizziness, orthostasis, orthopnea, diaphoresis, paresthesias, recent decreased exercise tolerance, or any other anginal-type symptoms. He denies any current UTI symptoms including dysuria, hematuria, etc.. No recent history of abdominal pain , heartburn, nausea, diarrhea, melena, gross hematochezia, or any food intolerance, including fatty foods, etc.. The patient also denies any recent fever, cough, wheezing, dyspnea, etc.. No history of recent headaches, visual changes, diplopia, change in mental status, or other change in neurological status. He denies any pain or discomfort. Onset: Today, Gradual, Unknown/Unsure Onset Date: 04/18/18 Onset Time: 04:00 Duration: Resolved Prior to Arrival Location: Reports: Other (No pain) Quality: Reports: Same as Previous Episode Severity: Mild Improves with: Reports: None Worsens with: Reports: None Context: Reports: Other (As above). Denies: Sick Contact, Trauma Associated Symptoms: Reports: Confusion (Stable chronic with additional hallucinations as above). Denies: Chest Pain, Cough, cough w sputum, Diaphoresis, Fever/Chills, Headaches, Loss of Appetite, Malaise, Nausea/Vomiting , Seizure, Shortness of Breath, Syncope, Weakness Treatments FLAT SURFACER JEWEL: Reports: Other (see below) (None) - Related Data Allergies Allergy/AdvReac Type Severity Reaction Status Date / Time Penicillins Allergy Hives Verified 09/01/17 04:05 Jesbamd-Mmn-Cop Reductase Allergy Hives Verified 09/01/17 04:05 Inhibitor Sulfa (Sulfonamide Allergy Hives Verified 09/01/17 04:05 Antibiotics) Home Meds: Home Meds Acetaminophen [Tylenol] 325 mg PO Q4HR PRN 05/11/14 [History] Metoprolol Tartrate 12.5 mg PO BID@08,20 05/11/14 [History] Aspirin [Bret Chewable Aspirin] 81 mg PO BEDTIME 12/16/14 [History] Polyethylene Glycol 3350 [MiraLAX] 17 gm PO ASDIRECTED 09/01/17 [History] Famotidine [Pepcid] 20 mg PO BEDTIME 04/18/18 [History] Finasteride [Proscar] 5 mg PO DAILY 04/18/18 [History] Fish Oil/[place]-3 Fatty Acids [Fish Oil 1,000 MG] 1 cap PO DAILY 04/18/18 [ History] Levothyroxine [Synthroid] 88 mcg PO ACBREAKFAST 04/18/18 [History] Vit A/Vit C/Vit E/Zinc/Copper [Preservision] 1 tab PO DAILY 04/18/18 [History] Past Medical History HEENT History: Reports: Allergic Rhinitis, Cataract, Hard of Hearing, Impaired Vision, Macular Degeneration, Other (See Below). 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 Denies: Afib, Aneurysm, Blood Clots/VTE/DVT, PVD Other Cardiovascular History: UT in September 2012 with cardiac procedures as below, history of PACs on the PVCs, and chronic bradycardia with secondary near syncope, borderline incomplete right bundle branch block and first-degree AV block. Concentric ventricular hypertrophy by echocardiogram in 2018 as below. Mild aortic valve stenosis by clinical exam with otherwise minimal diffuse valvular disease by echocardiogram. Respiratory History: Reports: COPD, Intubation, Previous, Pulmonary Fibrosis. Denies: Asthma, Intubation, Difficult, PE, Pneumothorax, Sleep Apnea, TB Other Respiratory History: COPD and pulmonary fibrosis by chest x-ray with no current medical therapy Gastrointestinal History: Reports: Chronic Constipation, Fecal Incontinence, Gastritis, GERD, Hiatal Hernia, Other (See Below). Denies: Celiac Disease, Cholelithiasis, Colon Polyp, Diverticulosis, GI Bleed, Hepatitis, Inflammatory Bowel Disease, Irritable Bowel Syndrome, Jaundice, Pancreatitis, PUD Other Gastrointestinal History: Right inguinal hernia since December 2017 with previous left inguinal hernia repair as below. Genitourinary History: Reports: BPH, Urinary Incontinence. Denies: Chronic Renal Insuffiency, Renal Calculus, Retention, Urinary, STD, UTI, Recurrent Musculoskeletal History: Reports: Arthritis, Back Pain, Chronic, Fracture, Osteoarthritis, Other (See Below). Denies: Gout, RA Other Musculoskeletal History: Chronic Low back pain with low back injury in the , fracture of the right wrist Neurological History: Reports: Alzheimers Disease, TIA, Other (See Below). 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 Visual hallucinations since about December 2017. History of 2 previous TIAs in the past with specifics unknown however suspect on 02/28/17 and 02/27/18 by our hospital records. Psychiatric History: Reports: Alzheimers Disease, Anxiety, Dementia, Depression , Hallucinations, Other (See Below). Denies: Abuse, Victim of, ADD, ADHD, Psych Hospitalization(s), Psychosis, PTSD, Suicide Attempt, Suicidal Ideation Other Psychiatric History: Beginning organic brain syndrome and hallucinations as above. Endocrine/Metabolic History: Reports: Hypothyroidism. Denies: Diabetes, Type I , Diabetes, Type II, Diabetes Mellitus, Type 3c, IDDM, Obesity/BMI 30+ Hematologic History: Reports: Other (See Below). Denies: Anemia, B12 Deficiency , Blood Transfusion(s), Iron Deficiency Other Hematologic History: Chronic mild thrombocytopenia Immunologic History: Reports: None. Denies: AIDS, HIV, Immunosuppression, SLE Oncologic (Cancer) History: Reports: Basal Cell Carcinoma, Other (See Below). Denies: Colon, Hodgkin's Lymphoma, Leukemia, Lymphoma, Malignant Melanoma, Non- Hodgkin's Lymphoma, Prostate, Squamous Cell Carcinoma Other Oncologic History: Basal cell carcinoma of the right cheek in about 2009, actinic keratosis Dermatologic History: Reports: Other (See Below). Denies: Eczema, Psoriasis Other Dermatologic History: Skin cancer and actinic keratosis as above - Infectious Disease History Infectious Disease History: Reports: Chicken Pox. Denies: C-Difficile, Measles , Meningitis, Mononucleosis, MRSA, Mumps, Pertussis (Whooping Cough), Rheumatic Fever, Rubella, Scarlet Fever, Shingles, TB, VRE - Past Surgical History Head Surgeries/Procedures: Reports: None HEENT Surgical History: Reports: Cataract Surgery, Oral Surgery, Other (See Below). Denies: Adenoidectomy, Eye Surgery, Laser Surgery, LASIK, Myringotomy w Tube(s), Naso-Sinus Surgery, Tonsillectomy Other HEENT Surgeries/Procedures: Right-sided cataract surgery in January 2012 with left-sided cataract surgery in about 2014. Complete teeth extraction with complete dentures uppers and lowers. Cardiovascular Surgical History: Reports: Coronary Artery Bypass, Coronary Artery Stent, Other (See Below). Denies: Pacer, Varicose Other Cardiovascular Surgeries/Procedures: PTCA/stent 2 on 10/02/12. Respiratory Surgical History: Reports: None. Denies: Thoracentesis GI Surgical History: Reports: Hernia, Inguinal, Other (See Below) Other GI Surgeries/Procedures: Left inguinal hernia repair in the - Past Imaging History Past Imaging History: Reports: Cardiac Echo (Echocardiogram on 03/14/18 with ejection fraction of 5055 percent with otherwise findings as above.), CAT Scan (CT of the head on 02/27/18 and 02/28/17.), MRI (MRI of the brain on 03/13/18.), Stress Testing (Low level cardiac stress test on 11/29/12) Social & Family History - Family History Cardiac: Reports: CAD, Heart Failure, UT, Other (See Below) Other Cardiac Family History: Mother with fatal CHF in her mid 70s, father with fatal UT in his early 70s - Tobacco Use Smoking Status *Q: Former Smoker Tobacco Use Within Last Twelve Months: No Years of Tobacco use: 6 Packs/Tins Daily: 1 Packs/Tins Daily Comment: Stop smoking in 1964 Used Tobacco, but Quit: Yes Smoking Cessation Information Provided To Patient: No Second Hand Smoke Exposure: No Second Hand Smoke Education Provided: No - Caffeine Use Caffeine Use: Reports: Coffee - Alcohol Use Alcohol Use History: Yes Days Per Week of Alcohol Use: 7 Number of Drinks Per Day: 1 Number of Drinks Per Day Comment: No previous DWIs, problems with alcohol abuse , etc. Total Drinks Per Week: 7 Alcohol Use in Last Twelve Months: Yes Alcohol Use Frequency: Socially - Recreational Drug Use Recreational Drug Use: No Drug Use in Last 12 Months: No - Living Situation & Occupation Living situation: Reports: (89, 4 children), with Family ( but closely followed by his family including daughters) Occupation: Retired (Retired [employer]. 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 ED EXAM, NEURO - Physical Exam Exam: See Below Exam Limited By: No Limitations General Appearance: Alert, WD/WN, No Apparent Distress Eye Exam: Bilateral Eye: EOMI, Normal Fundi (No nystagmus), Normal Inspection ( Patient wearing glasses), PERRL Ears: Normal Canal (Moderate cerumen in the right EAC), Normal TMs, Hearing Loss (Severe bilateral presbycusis with patient not having hearing aids today) Nose: Normal Inspection, Normal Mucosa, No Blood Throat/Mouth: Normal Lips, Normal Gums. No: Normal Teeth (Patient only wearing his upper dentures today), Normal Oropharynx, Normal Voice, No Airway Compromise , Dysphagia, Perioral Cyanosis Head Exam: Atraumatic, Normocephalic. No: Facial Swelling, Facial Tenderness, Sinus Tenderness Neck: Supple, Non-Tender, Full Range of Motion, Carotid Bruit (Mild bilateral carotid bruits versus transmitted heart sounds). No: Lymphadenopathy (L), Lymphadenopathy (R), Thyromegaly Respiratory/Chest: No Respiratory Distress, Lungs Clear, Normal Breath Sounds, No Accessory Muscle Use, Chest Non-Tender. No: Pleural Rub, Retractions Cardiovascular: Normal Peripheral Pulses, No Edema, No Gallop, No JVD, No Rub, Systolic Murmur (Mild 1/6 JORGE A of the aortic valve), Extra Beats (Occasional PVCs by heart monitor, regular rate as below). No: Gallop/S3, Gallop/S4, Friction Rub GI/Abdominal: Normal Bowel Sounds, Soft, Non-Tender, No Organomegaly, No Distention, No Abnormal Bruit, No Mass, Pelvis Stable, Hernia (4 cm nonincarcerated right inguinal hernia with no localized tenderness). No: Guarding (Male) Exam: Deferred Rectal (Males) Exam: Deferred Neurological: Alert, Normal Mood/Affect, Normal Dorsiflexion, CN II-XII Intact, Normal Plantar Flexion, Normal Gait, Normal Reflexes (Negative Babinski's, finger to nose, and pronator rotation tests. No evidence of facial paresis, tongue deviation, orthostasis, etc.. Excellent reverse thought processes.), No Motor/Sensory Deficits, Oriented x 3, Tremor (Mild resting tremor with no rigidity or cogwheeling), Other (Mild beginning organic brain syndrome with no visual hallucinations today). No: Babinski Back Exam: Normal Inspection, Full Range of Motion. No: CVA Tenderness (L), CVA Tenderness (R), Muscle Spasm Extremities: Normal Inspection, Normal Range of Motion, Non-Tender, No Pedal Edema, Normal Capillary Refill. No: Marlon's Sign Psychiatric: Normal Affect, Normal Mood Skin Exam: Warm, Dry, Intact, Normal Color, No Rash. No: Diaphoretic, Wound/ Incision EKG INTERPRETATION EKG Date: 04/18/18 Time: 11:41 Rhythm: Other (Occasional PVCs) Rate (Beats/Min): 64 [place]: LAD-Left [place] Deviation (Standard left cardiac axis) P-Wave: Present (Mild diffuse biphasic P waves and extreme poor R-wave progression in the anterior leads) QRS: Normal (0.09 seconds with borderline T-wave inversion in lead V1) ST-T: Normal QT: Normal TX/PQ Interval: 0.21 seconds representing a first degree AV block Comparison: No Change (Last EKG on 03/09/18) EKG Interpretation Comments: 1. No acute ischemic changes 2. PVCs 3. First-degree AV block Course - Vital Signs Last Recorded V/S: See E-med flow sheet and stroke code sheet - Orders/Labs/Meds Orders: Active Orders 24 hr Category Date Time Status Blood Glucose Check, Bedside [RC] STAT Care 04/18/18 11:30 Active Cardiac Monitoring [RC] STAT Care 04/18/18 11:30 Active EKG Documentation Completion [RC] ASDIRECTED Care 04/18/18 11:30 Active NIH Stroke Scale [RC] ASDIRECTED Care 04/18/18 11:30 Active Oxygen Therapy, ED [RC] CONTINUOUS Care 04/18/18 11:30 Active Peripheral IV Care [RC] . DIRECTED Care 04/18/18 11:30 Active Pulse Oximetry [RC] CONTINUOUS Care 04/18/18 11:30 Active Up With Assistance [RC] ASDIRECTED Care 04/18/18 11:30 Active Vital Signs [RC] PFP Care 04/18/18 11:30 Active Nothing per Oral Now Diet [DIET] Diet 04/18/18 Breakfast Active Chest 1V Frontal [CR] Stat Exams 04/18/18 11:30 Taken Head wo Cont [CT] Stat Exams 04/18/18 11:30 Taken PROLACTIN [REF] Stat Lab 04/18/18 11:30 Received UA W/MICROSCOPIC [URIN] Stat Lab 04/18/18 11:30 Ordered Sodium Chloride 0.9% [Saline Flush] Med 04/18/18 11:30 Active 10 ml FLUSH ASDIRECTED PRN Obtain Past Medical Record [OM.PC] Stat Oth 04/18/18 11:30 Active Peripheral IV Insertion Adult [OM.PC] Stat Oth 04/18/18 11:30 Ordered Resuscitation Status Stat Resus Stat 04/18/18 11:30 Ordered Medication Orders Sodium Chloride (Saline Flush) 10 ml FLUSH ASDIRECTED PRN PRN Reason: Keep Vein Open Last Admin: 04/18/18 11:35 Dose: 10 ml Labs: Laboratory Tests 04/18/18 04/18/18 04/18/18 Range/Units 11:30 11:30 11:50 WBC 4.7 (4.0-10.2) K/uL RBC 4.51 (4.33-5.41) M/uL Hgb 13.9 (13.1-16.8) g/dL Hct 39.1 (39.0-49.0) % MCV 86.7 (84.0-98.0) fL MCH 30.8 (28.2-33.3) pg MCHC 35.5 (31.7-36.0) g/dL RDW 12.8 (11.2-14.1) % Plt Count 143 L (150-350) K/uL Neut % (Auto) 59.2 (45.0-80.0) % Lymph % (Auto) 28.8 (10.0-50.0) % [place] % (Auto) 8.2 (2.0-14.0) % Eos % (Auto) 3.4 (0.0-5.0) % Baso % (Auto) 0.4 (0.0-2.0) % Neut # (Auto) 2.80 (1.40-7.00) K/uL Lymph # (Auto) 1.36 (0.50-3.50) K/uL [place] # (Auto) 0.39 (0.00-1.00) K/uL Eos # (Auto) 0.16 (0.00-0.50) K/uL Baso # (Auto) 0.02 (0.00-0.20) K/uL PT 10.9 (9.8-11.7) SEC INR 1.0 APTT 26.1 (22.1-29.8) SEC D-Dimer, Quantitative 803 H (0-400) ng/mL Sodium (136-145) mmol/L Potassium (3.5-5.1) mmol/L Chloride (98-107) mmol/L Carbon Dioxide (21.0-32.0) mmol/L BUN (7-18) mg/dL Creatinine (0.51-1.17) mg/dL Est Cr Clr Drug Dosing Estimated GFR (MDRD) mL/min Glucose (74-106) mg/dL Lactic Acid (0.4-2.0) mmol/L Uric Acid (2.6-7.2) mg/dL Calcium (8.5-10.1) mg/dL Magnesium (1.8-2.4) mg/dL Total Bilirubin (0.2-1.0) mg/dL AST (15-37) U/L ALT (12-78) U/L Alkaline Phosphatase (46-116) IU/L Creatine Kinase (26-308) U/L Creatine Kinase Index (0.0-2.5) % CK-MB (CK-2) (0.00-3.60) ng/mL Troponin I (0.000-0.056) ng/mL NT-Pro-B Natriuret Pep (0-125) pg/mL Total Protein (6.4-8.2) g/dL Albumin (3.4-5.0) g/dL TSH, Ultra Sensitive (0.358-3.740) mIU/mL 04/18/18 04/18/18 Range/Units 11:50 11:50 WBC (4.0-10.2) K/uL RBC (4.33-5.41) M/uL Hgb (13.1-16.8) g/dL Hct (39.0-49.0) % MCV (84.0-98.0) fL MCH (28.2-33.3) pg MCHC (31.7-36.0) g/dL RDW (11.2-14.1) % Plt Count (150-350) K/uL Neut % (Auto) (45.0-80.0) % Lymph % (Auto) (10.0-50.0) % [place] % (Auto) (2.0-14.0) % Eos % (Auto) (0.0-5.0) % Baso % (Auto) (0.0-2.0) % Neut # (Auto) (1.40-7.00) K/uL Lymph # (Auto) (0.50-3.50) K/uL [place] # (Auto) (0.00-1.00) K/uL Eos # (Auto) (0.00-0.50) K/uL Baso # (Auto) (0.00-0.20) K/uL PT (9.8-11.7) SEC INR APTT (22.1-29.8) SEC D-Dimer, Quantitative (0-400) ng/mL Sodium 140 (136-145) mmol/L Potassium 4.0 (3.5-5.1) mmol/L Chloride 106 (98-107) mmol/L Carbon Dioxide 26.5 (21.0-32.0) mmol/L BUN 18 (7-18) mg/dL Creatinine 0.97 (0.51-1.17) mg/dL Est Cr Clr Drug Dosing TNP Estimated GFR (MDRD) > 60 mL/min Glucose 112 H (74-106) mg/dL Lactic Acid 1.0 (0.4-2.0) mmol/L Uric Acid 5.2 (2.6-7.2) mg/dL Calcium 9.2 (8.5-10.1) mg/dL Magnesium 1.9 (1.8-2.4) mg/dL Total Bilirubin 1.2 H (0.2-1.0) mg/dL AST 15 (15-37) U/L ALT 17 (12-78) U/L Alkaline Phosphatase 64 (46-116) IU/L Creatine Kinase 30 (26-308) U/L Creatine Kinase Index 2.3 (0.0-2.5) % CK-MB (CK-2) 0.70 (0.00-3.60) ng/mL Troponin I 0.000 (0.000-0.056) ng/mL NT-Pro-B Natriuret Pep 651 H (0-125) pg/mL Total Protein 6.8 (6.4-8.2) g/dL Albumin 3.7 (3.4-5.0) g/dL TSH, Ultra Sensitive 0.393 (0.358-3.740) mIU/mL Stat Accu-Chek of 107 mg percent on patient's arrival. Meds: Medications Generic Name Dose Route Start Last Admin Trade Name Freq PRN Reason Stop Dose Admin Sodium Chloride 10 ml 04/18/18 11:30 04/18/18 11:35 Saline Flush FLUSH 10 ml ASDIRECTED PRN Administration Keep Vein Open Discontinued Medications Generic Name Dose Route Start Last Admin Trade Name Freq PRN Reason Stop Dose Admin Aspirin 324 mg 04/18/18 12:46 04/18/18 12:50 Aspirin CHEW 04/18/18 12:47 324 mg ONETIME ONE Administration Famotidine 40 mg 04/18/18 11:30 04/18/18 11:35 Pepcid IVPUSH 04/18/18 11:31 40 mg ONETIME ONE Administration - Radiology Interpretation Free Text/Narrative:: Chest x-ray, portable, somewhat prominent aortic arch with mild aortic valve calcification with probable pulmonary hypertension and/or mild centralized CHF. Moderate COPD changes noted with no pneumothorax, significant pulmonary infiltrates, etc. Chest x-ray report received after patient left facility. Telephone consultation at 12:08 PM with the radiology department at [facility]. Negative verbal report of CT scan of the head without contrast for acute CVA on etc.. Official CT report received after patient left facility. CT Results Date: 04/18/18 CT Results Time: 12:08 Departure - Departure Time of Disposition: 13:10 Disposition: DC/Tfer to Acute Hospital 02 Condition: Fair Clinical Impression: TIA (transient ischemic attack) Qualifiers: Transient cerebral ischemia type: unspecified Qualified Code(s): G45.9 - Transient cerebral ischemic attack, unspecified - Discharge Information Referrals: PCP,Unknown [Primary Care Provider] - Forms: ED Department Discharge, Interfacility Transfer EMTALA - Problem List & Annotations (1) TIA (transient ischemic attack) SNOMED Code(s): 942696135 Code(s): G45.9 - TRANSIENT CEREBRAL ISCHEMIC ATTACK, UNSPECIFIED Status: Acute Priority: High Current Visit: Yes Onset Date: 04/18/18 Annotation/ Comment:: Suspected possible brief TIA with dysarthria as above. Stroke code was called in this facility upon patient's arrival to the emergency room with neurological consultation at 11:[address] Little at [facility], informing her of the patient's arrival and stroke code. Secondary to patient's resolved symptoms she would not call a stroke code in their facility with no further treatment recommendations given. Note that patient is normally seen at the [facility] in [place], however that they do not have facilities to evaluate for a CVA. Negative CT scan of the head results as above. Various therapeutic options were given to the patient, his , and his daughter, who are requesting transfer to the emergency room in [place] for further MRI of the brain, etc. and evaluation. Subsequent telephone consultation at 12:[address] Sanchez, emergency room physician at [facility], who does accept the patient for further treatment and evaluation. He is aware of my previous neurology consultation as above and does not give any further treatment recommendations. Upon receival of CT scan of the head results patient was given 4 baby aspirins chew and swallow with the patient apparently not taking his aspirin for the last several days. Ambulance transfer with supervisor wall mirror department accompaniment. Emotional support provided to all family members. They were once again informed that the patient should come to the hospital [facility] with any TIA or stroke symptoms. Patient and his are also having problems with ADLs at this time and are considering group home placement, which would be extremely beneficial for this patient. Continue to observe his hallucinations, etc. for now by his regular providers. Qualifiers: Transient cerebral ischemia type: unspecified Qualified Code(s): G45.9 - Transient cerebral ischemic attack, unspecified (2) Elevated d-dimer SNOMED Code(s): 883364052 Code(s): R79.89 - OTHER SPECIFIED ABNORMAL FINDINGS OF BLOOD CHEMISTRY Status: Acute Priority: High Current Visit: Yes Onset Date: 04/18/18 Annotation/Comment:: As below (3) Thrombocytopenia SNOMED Code(s): 971496471 Code(s): D69.6 - THROMBOCYTOPENIA, UNSPECIFIED Status: Chronic Priority: Medium Current Visit: Yes Onset Date: 02/28/17 Annotation/Comment:: Mild thrombocytopenia. Observe for now (4) CHF (congestive heart failure) SNOMED Code(s): 32352142 Code(s): I50.9 - HEART FAILURE, UNSPECIFIED Status: Chronic Priority: Medium Current Visit: Yes Onset Date: 02/28/17 Annotation/Comment:: Mild BNP elevation and mild CHF by chest x-ray with no chest pain or anginal complaints. EKG and cardiac enzymes are otherwise normal with known history of PVCs and first-degree AV block. Note d-dimer elevation with no clinical evidence of PE or DVT. Continue to observe closely with further workup depending on his clinical course and per recommendations from the emergency room physicians. Qualifiers: Qualified Code(s): I50.9 - Heart failure, unspecified (5) COPD, Mild chronic obstructive pulmonary disease SNOMED Code(s): 682556799 Code(s): J44.9 - CHRONIC OBSTRUCTIVE PULMONARY DISEASE, UNSPECIFIED Status : Chronic Priority: Medium Current Visit: Yes Annotation/Comment:: No current bronchitic-type symptoms (6) Coronary arteriosclerosis, CAD SNOMED Code(s): 85108065 Code(s): I25.10 - ATHSCL HEART DISEASE OF [place] CORONARY ARTERY W/O ANG PCTRS Status: Chronic Priority: Medium Current Visit: Yes Annotation/ Comment:: As above. No chest pain or anginal complaints. Chest pain protocol not initiated in the emergency secondary to absence of anginal-type symptoms (7) Gastroesophageal reflux disease SNOMED Code(s): 386564246 Code(s): K21.9 - GASTRO-ESOPHAGEAL REFLUX DISEASE WITHOUT ESOPHAGITIS Status: Chronic Priority: Medium Current Visit: Yes Annotation/Comment:: No abdominal complaints at this time. High-dose IV Pepcid given as GI prophylaxis. (8) HTN, Benign hypertension SNOMED Code(s): 01960401 Code(s): I10 - ESSENTIAL (PRIMARY) HYPERTENSION Status: Chronic Priority : Medium Current Visit: No Annotation/Comment:: Blood pressures under good control in the emergency room. Continue close followup by accepting provider and his regular providers at the [facility] (9) Hyperlipidemia SNOMED Code(s): 81894454 Code(s): E78.5 - HYPERLIPIDEMIA, UNSPECIFIED Status: Chronic Priority: Medium Current Visit: Yes Annotation/Comment:: Consider lipid panel by accepting physicians Qualifiers: Hyperlipidemia type: unspecified Qualified Code(s): E78.5 - Hyperlipidemia , unspecified (10) Hypothyroidism SNOMED Code(s): 81238528 Code(s): E03.9 - HYPOTHYROIDISM, UNSPECIFIED Status: Chronic Priority: Medium Current Visit: Yes Annotation/Comment:: TSH normal today (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 Observe for now. (13) Confusion SNOMED Code(s): 046426170 Code(s): R41.0 - DISORIENTATION, UNSPECIFIED Status: Acute Priority: High Current Visit: Yes Annotation/Comment:: Note progressive confusion and problems with ADLs as above. Also additional visual hallucinations. Continue to observe closely by his regular providers. (14) Hyperbilirubinemia SNOMED Code(s): 97256788 Code(s): E80.6 - OTHER DISORDERS OF BILIRUBIN METABOLISM Status: Acute Priority: Medium Current Visit: Yes Onset Date: 04/18/18 Annotation/ Comment:: Mild. Observe for now. 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 DIRECTED Pulse Oximetry [RC] CONTINUOUS Up With Assistance [RC] ASDIRECTED Vital Signs [RC] PFP Chest 1V Frontal [CR] Stat Head wo Cont [CT] Stat PROLACTIN [REF] Stat UA W/MICROSCOPIC [URIN] Stat Sodium Chloride 0.9% [Saline Flush] 10 ml FLUSH ASDIRECTED PRN Obtain Past Medical Record [OM.PC] Stat Peripheral IV Insertion Adult [OM.PC] Stat Resuscitation Status Stat 04/18/18 Breakfast Nothing per Oral Now Diet [DIET] - Assessment/Plan Last 24 Hours: My Active Orders 04/18/18 11:30 Blood Glucose Check, Bedside [RC] STAT Cardiac Monitoring [RC] STAT EKG Documentation Completion [RC] ASDIRECTED NIH Stroke Scale [RC] ASDIRECTED Oxygen Therapy, ED [RC] CONTINUOUS Peripheral IV Care [RC] . DIRECTED Pulse Oximetry [RC] CONTINUOUS Up With Assistance [RC] ASDIRECTED Vital Signs [RC] PFP Chest 1V Frontal [CR] Stat Head wo Cont [CT] Stat PROLACTIN [REF] Stat UA W/MICROSCOPIC [URIN] Stat Sodium Chloride 0.9% [Saline Flush] 10 ml FLUSH ASDIRECTED PRN Obtain Past Medical Record [OM.PC] Stat Peripheral IV Insertion Adult [OM.PC] Stat Resuscitation Status Stat 04/18/18 Breakfast Nothing per Oral Now Diet [DIET] Assessment:: As above Plan: As above. Extensive precautions were given to the patient and his family, who are in agreement with the treatment plan. Ambulance transfer with supervisor wall mirror department accompaniment.
[2018-04-18] MEDS ORDERED: Sodium Chloride 0.9% 10 ML Syringe FLUSH PRN (11:30)
[2018-04-18] MEDS ORDERED: Famotidine 20 MG/2 ML SDV IVPUSH ONE (11:30)
[2018-04-18 12:21] LABS: CHLORIDE,CL 106 mmol/L (98-107); SODIUM,NA 140 mmol/L (136-145)
[2018-04-18] MEDS ORDERED: Aspirin 81 MG Tab.Chew CHEW ONE (12:46)
== END 2018-04-18 13:10 ==
LOC: LL.ED 11:26
DX: G45.9 Transient cerebral ischemic attack, unspecified (principal); I11.0 Hypertensive heart disease with heart failure; I50.9 Heart failure, unspecified; E78.00 Pure hypercholesterolemia, unspecified; I25.2 Old myocardial infarction; Z88.0 Allergy status to penicillin; Z88.2 Allergy status to sulfonamides; Z79.82 Long term (current) use of aspirin; Z79.899 Other long term (current) drug therapy; Z87.891 Personal history of nicotine dependence
CPT/HCPCS: 36415; 70450; 71045; 80053; 82550; 82553; 83605; 83735; 83880; 84146; 84443; 84484; 84550; 85025; 85379; 85610; 85730; 93005; 96374; 99284; 99285; A9270-GY; J7050; S0028

== ENCOUNTER 2018-04-19 21:55 | Inpatient (IN) | payer OTHER ==
[2018-04-19] MEDS ORDERED: Sodium Chloride 0.9% 10 ML Syringe FLUSH PRN ×2 (21:59→23:18)
--- NOTE | 2018-04-19 21:59 | EDM.PDOC ---
ED HPI GENERAL MEDICAL PROBLEM - General Chief Complaint: Neurological Problem Stated Complaint: Confusion Time Seen by Provider: 04/19/18 21:55 Source of Information: Reports: Patient, EMS, Family (; daughter Pat), Old Records ([facility] chart/EMR). Denies: EMS Notes Reviewed (Not available at dictation) History Limitations: Reports: Altered Mental Status - History of Present Illness INITIAL COMMENTS - FREE TEXT/NARRATIVE: Patient was brought to the emergency room via ambulance with industrial automation engineer accompaniment with saline lock placed by paramedics prior to transfer. Note the patient has continued to have intermittent confusion since about 4 AM on with patient initially evaluated in this emergency room by me yesterday with stroke code called at that time secondary to borderline brief dysarthria. Additional questionable borderline brief dysarthria this afternoon, however based on my exam patient is at his normal baseline. Subsequent transfer to [facility] in [place] yesterday with negative workup for acute CVA, and patient discharged from that facility earlier this afternoon. 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 The patient denies any chest pain/pressure, heart flutter, dizziness, orthostasis, orthopnea, diaphoresis, paresthesias, recent decreased exercise tolerance, or any other anginal-type symptoms. No recent history of abdominal pain, heartburn, nausea, diarrhea, melena, gross hematochezia, or any food intolerance, including fatty foods, etc.. No apparent history of gross hematuria, colic, or other UTI symptoms. The patient also denies any recent fever, cough, wheezing, dyspnea, etc.. No history of recent fall, injury, or other complaints. He denies any pain or discomfort. Onset: Today, Gradual Onset Date: 04/19/18 Onset Time: 16:00 Duration: Intermittent Location: Reports: Other (No pain) Quality: Reports: Same as Previous Episode Improves with: Reports: None Worsens with: Reports: None Context: Reports: Other (As above). Denies: Sick Contact, Trauma Associated Symptoms: Reports: Confusion (As above), Weakness (Stable chronic). Denies: Chest Pain, Cough, Diaphoresis, Fever/Chills, Headaches, Loss of Appetite, Malaise, Nausea/Vomiting, Shortness of Breath, Syncope Treatments ARCADE ATTENDANT: Reports: Other (see below) (None) - Related Data Allergies Allergy/AdvReac Type Severity Reaction Status Date / Time Penicillins Allergy Hives Verified 09/01/17 04:05 Klaswge-Nfy-Jat Reductase Allergy Hives Verified 09/01/17 04:05 Inhibitor Sulfa (Sulfonamide Allergy Hives Verified 09/01/17 04:05 Antibiotics) Home Meds: Home Meds Acetaminophen [Tylenol] 325 mg PO Q4HR PRN 05/11/14 [History] Metoprolol Tartrate 12.5 mg PO BID@08,20 05/11/14 [History] Aspirin [Bret Chewable Aspirin] 81 mg PO BEDTIME 12/16/14 [History] Polyethylene Glycol 3350 [MiraLAX] 17 gm PO ASDIRECTED 09/01/17 [History] Famotidine [Pepcid] 20 mg PO BEDTIME 04/18/18 [History] Finasteride [Proscar] 5 mg PO DAILY 04/18/18 [History] Fish Oil/[place]-3 Fatty Acids [Fish Oil 1,000 MG] 1 cap PO DAILY 04/18/18 [ History] Levothyroxine [Synthroid] 88 mcg PO ACBREAKFAST 04/18/18 [History] Vit A/Vit C/Vit E/Zinc/Copper [Preservision] 1 tab PO DAILY 04/18/18 [History] Past Medical History HEENT History: Reports: Allergic Rhinitis, Cataract, Hard of Hearing, Impaired Vision, Macular Degeneration, Other (See Below). 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 Denies: Afib, Aneurysm, Blood Clots/VTE/DVT, PVD Other Cardiovascular History: ND in September 2012 with cardiac procedures as below, history of PACs on the PVCs, and chronic bradycardia with secondary near syncope, borderline incomplete right bundle branch block and first-degree AV block. Concentric ventricular hypertrophy by echocardiogram in 2018 as below. Mild aortic valve stenosis by clinical exam with otherwise minimal diffuse valvular disease by echocardiogram. Respiratory History: Reports: COPD, Intubation, Previous, Pulmonary Fibrosis. Denies: Asthma, Intubation, Difficult, PE, Pneumothorax, Sleep Apnea, TB Other Respiratory History: COPD and pulmonary fibrosis by chest x-ray with no current medical therapy Gastrointestinal History: Reports: Chronic Constipation, Fecal Incontinence, Gastritis, GERD, Hiatal Hernia, Other (See Below). Denies: Celiac Disease, Cholelithiasis, Colon Polyp, Diverticulosis, GI Bleed, Hepatitis, Inflammatory Bowel Disease, Irritable Bowel Syndrome, Jaundice, Pancreatitis, PUD Other Gastrointestinal History: Right inguinal hernia since December 2017 with previous left inguinal hernia repair as below. Genitourinary History: Reports: BPH, Urinary Incontinence. Denies: Chronic Renal Insuffiency, Renal Calculus, Retention, Urinary, STD, UTI, Recurrent Musculoskeletal History: Reports: Arthritis, Back Pain, Chronic, Fracture, Neck Pain, Chronic, Osteoarthritis, Other (See Below). Denies: Gout, Osteoporosis, RA Other Musculoskeletal History: Chronic Low back pain with low back injury in the , fracture of the right wrist Neurological History: Reports: Alzheimers Disease, TIA, Other (See Below). 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 Visual hallucinations since about December 2017. History of 3 previous TIAs in the past with specifics unknown however suspect on 04/18/18, 02/28/17 and 02/27/18 by our hospital records. Psychiatric History: Reports: Addiction, Alzheimers Disease, Anxiety, Dementia , Depression, Hallucinations, Other (See Below). Denies: Abuse, Victim of, ADD , ADHD, Psych Hospitalization(s), Psychosis, PTSD, Suicide Attempt, Suicidal Ideation Other Psychiatric History: Beginning organic brain syndrome and hallucinations as above. Endocrine/Metabolic History: Reports: Hypothyroidism. Denies: Diabetes, Type I , Diabetes, Type II, Diabetes Mellitus, Type 3c, IDDM, Obesity/BMI 30+, Osteoporosis Hematologic History: Reports: Other (See Below). Denies: Anemia, B12 Deficiency , Blood Transfusion(s), Iron Deficiency Other Hematologic History: Chronic mild thrombocytopenia Immunologic History: Reports: None. Denies: AIDS, HIV, Immunosuppression, SLE Oncologic (Cancer) History: Reports: Basal Cell Carcinoma, Other (See Below). Denies: Colon, Hodgkin's Lymphoma, Leukemia, Lymphoma, Malignant Melanoma, Non- Hodgkin's Lymphoma, Prostate, Squamous Cell Carcinoma Other Oncologic History: Basal cell carcinoma of the right cheek in about 2009, actinic keratosis Dermatologic History: Reports: Other (See Below). Denies: Eczema, Psoriasis Other Dermatologic History: Skin cancer and actinic keratosis as above - Infectious Disease History Infectious Disease History: Reports: Chicken Pox. Denies: C-Difficile, Measles , Meningitis, Mononucleosis, MRSA, Mumps, Pertussis (Whooping Cough), Rheumatic Fever, Rubella, Scarlet Fever, Shingles, TB, VRE - Past Surgical History Head Surgeries/Procedures: Reports: None HEENT Surgical History: Reports: Cataract Surgery, Oral Surgery, Other (See Below). Denies: Adenoidectomy, Eye Surgery, Laser Surgery, LASIK, Myringotomy w Tube(s), Naso-Sinus Surgery, Tonsillectomy Other HEENT Surgeries/Procedures: Right-sided cataract surgery in January 2012 with left-sided cataract surgery in about 2014. Complete teeth extraction with complete dentures uppers and lowers. Cardiovascular Surgical History: Reports: Coronary Artery Bypass, Coronary Artery Stent, Other (See Below). Denies: Pacer, Varicose Other Cardiovascular Surgeries/Procedures: PTCA/stent 2 on 10/02/12. Respiratory Surgical History: Reports: None. Denies: Thoracentesis GI Surgical History: Reports: Hernia, Inguinal, Other (See Below). Denies: Appendectomy, Cholecystectomy, Colonoscopy, EGD, Polypectomy Other GI Surgeries/Procedures: Left inguinal hernia repair in the Male Surgical History: Reports: Circumcision, Other (See Below). Denies: TURP-Transurethral Resection of Prostate, Vasectomy Other Male Surgeries/Procedures: Circumcision as an . Endocrine Surgical History: Reports: None. Denies: Thyroid Biopsy Neurological Surgical History: Reports: None. Denies: C-Spine, Discectomy, Intracranial, Laminectomy, Lumbar Spine, Spinal Fusion, Vertebroplasty Musculoskeletal Surgical History: Reports: None. Denies: Arthroscopic Procedure , Carpal Tunnel, Ganglion Cyst, Joint Replacement, ORIF, Shoulder Surgery Oncologic Surgical History: Reports: None Dermatological Surgical History: Reports: Other (See Below) Other Dermatological Surgeries/Procedures: Excision of basal cell carcinoma from the right cheek in 2009. - Past Imaging History Past Imaging History: Reports: Cardiac Echo (Echocardiogram on 03/14/18 with ejection fraction of 5055 percent with otherwise findings as above.), CAT Scan (CT of the head on 04/18/18, 02/27/18 and 02/28/17.), MRI (MRI of the brain on and 03/13/18.), Stress Testing (Low level cardiac stress test on 11/29/12) Social & Family History - Family History HEENT: Reports: Cataract, Glaucoma, Other (See Below). Denies: Macular Degeneration, Retinal Detachment Other HEENT Family History: Glaucoma in mother and 3 brothers. Cataract in daughter. Cardiac: Reports: CAD, Heart Failure, ND, Other (See Below). Denies: Afib, Aneurysm, Arrhythmia, Blood Clots/VTE/DVT, High Cholesterol, Hypertension Other Cardiac Family History: Mother with fatal CHF in her mid 70s, father with fatal ND in his early 70s Respiratory: Denies: Asthma, COPD, PE, Pneumothorax, Sleep Apnea GI: Denies: Celiac Disease, Cholelithiasis, Colon Polyps, GERD, GI bleed, Inflammatory Bowel Disease, Irritable Bowel Syndrome, PUD : Reports: None. Denies: Renal Calculus, Renal Disease/Insufficiency OBGYN: Reports: None. Denies: Endometriosis, Recurrent Spontaneous Musculoskeletal: Reports: Gout, Osteoarthritis, Other (See Below). Denies: RA, SLE Other Musculoskeletal Family History: Mother with gout. Daughter with osteoarthritis. Neurological: Reports: None. Denies: Alzheimers Disease, Cerebral Aneurysms, CVA, Dementia, Migraines, MS, Parkinson's, Seizure, TIA Psychiatric: Reports: Anxiety, Depression, Other (See Below). Denies: Abuse, Victim of, ADD, ADHD, Psych Hospitalization(s), PTSD, Suicide Attempt Other Psychiatric Family History: Mother with severe anxiety depression disorder. Brother with anxiety depression disorder and fatal complications from alcohol abuse in his 80s. Endocrine/Metabolic: Reports: Diabetes, type II, IDDM, Other (See Below). Denies: Diabetes, Type I, Diabetes Mellitus, Type 3c, Hypothyroidism Other Endocrine/Metabolic Family History: Mother and brother with IDDM Hematologic: Denies: Anemia, SLE Immunologic: Reports: None. Denies: AIDS, HIV, SLE Dermatologic: Reports: None. Denies: Eczema, Psoriasis Oncologic: Reports: None. Denies: Colon, Hodgkin's Lymphoma, Leukemia, Lymphoma , Non-Hodgkin's Lymphoma, Prostate, Skin - Tobacco Use Smoking Status *Q: Former Smoker Tobacco Use Within Last Twelve Months: No Years of Tobacco use: 6 Packs/Tins Daily: 1 Packs/Tins Daily Comment: Stopped smoking in 1964 Used Tobacco, but Quit: Yes Smoking Cessation Information Provided To Patient: No Second Hand Smoke Exposure: No Second Hand Smoke Education Provided: No - Caffeine Use Caffeine Use: Reports: Coffee (3 cups per day), Soda (3 sodas per week). Denies : Energy Drinks, Tea - Alcohol Use Alcohol Use History: Yes Days Per Week of Alcohol Use: 1 Number of Drinks Per Day: 1 Number of Drinks Per Day Comment: Usually beer. No previous DWIs, problems with alcohol abuse, etc. Total Drinks Per Week: 1 Alcohol Use in Last Twelve Months: Yes Alcohol Use Frequency: Socially, Weekly - Recreational Drug Use Recreational Drug Use: No Drug Use in Last 12 Months: No Recreational Drug Type: Denies: Amphetamines (Speed), Cocaine, Heroin, Inhalants (Glues, Solvents, Aerosols), LSD (Acid), Marijuana/Hashish, Methamphetamine, Morphine, Oxycodone - Living Situation & Occupation Living situation: Reports: (1952, 4 children), with Family ( but closely followed by his family including daughters) Occupation: Retired (Retired [employer]. 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 ED EXAM, NEURO - Physical Exam Exam: See Below Exam Limited By: Altered Mental Status General Appearance: Alert, WD/WN, No Apparent Distress Eye Exam: Bilateral Eye: EOMI, Normal Fundi (No nystagmus), Normal Inspection ( Patient wearing glasses), PERRL Ears: Normal External Exam, Normal Canal, Hearing Loss (Severe bilateral hearing loss despite current bilateral hearing aides) Nose: Normal Inspection, Normal Mucosa, Nasal Drainage Throat/Mouth: Normal Lips, Normal Gums, Normal Oropharynx, Normal Voice, No Airway Compromise. No: Normal Teeth (Complete upper dentures with absent lower dentition the patient not wearing his lower dentures recently), Dysphagia, Perioral Cyanosis Head Exam: Atraumatic, Normocephalic. No: Facial Swelling, Facial Tenderness, Sinus Tenderness Neck: Supple, Non-Tender, Full Range of Motion, Carotid Bruit (Mild bilateral carotid bruits versus transmitted heart sounds). No: Lymphadenopathy (L), Lymphadenopathy (R), Thyromegaly Respiratory/Chest: No Respiratory Distress, Lungs Clear, Normal Breath Sounds, No Accessory Muscle Use, Chest Non-Tender. No: Pleural Rub, Retractions Cardiovascular: Normal Peripheral Pulses, Regular Rate, Rhythm, No Edema, No Gallop, No JVD, No Rub, Systolic Murmur (Mild 1/6 JORGE A of the aortic valve). No : Gallop/S3, Gallop/S4, Friction Rub GI/Abdominal: Normal Bowel Sounds, Soft, Non-Tender, No Organomegaly, No Distention, No Abnormal Bruit, No Mass, Hernia (Stable 4 cm in diameter nonincarcerated right inguinal hernia). No: Guarding (Male) Exam: Deferred, Hernia (As above) Rectal (Males) Exam: Deferred Neurological: Alert, Normal Mood/Affect, Normal Dorsiflexion, Normal Plantar Flexion, Difficulty Walking (Secondary to generalized weakness), Other (Normal baseline moderate confusion ). No: Babinski (Negative Babinski's, finger to nose, and pronator rotation tests. No evidence of facial paresis, tongue deviation, orthostasis, etc.. Excellent reverse thought processes.) Back Exam: Normal Inspection, Full Range of Motion. No: CVA Tenderness (L), CVA Tenderness (R), Muscle Spasm Extremities: Normal Inspection, Normal Range of Motion, Non-Tender, No Pedal Edema, Normal Capillary Refill. No: Marlon's Sign Psychiatric: Normal Affect, Normal Mood Skin Exam: Warm, Dry, Intact, Normal Color, No Rash. No: Diaphoretic, Ecchymosis, Petechiae, Wound/Incision Course - Vital Signs Last Recorded V/S: Last Vital Signs Temp 37.6 C 04/19/18 22:14 Pulse 68 04/19/18 22:14 Resp 20 04/19/18 22:14 BP 129/59 L 04/19/18 22:14 Pulse Ox 89 L 04/19/18 22:14 Vital Signs - 24 hr 04/19/18 04/19/18 22:00 22:14 Temperature [ 37.4 C 37.6 C Temporal] Pulse, 63 68 Peripheral [ Pulse Oximetry] Respiratory 18 20 Rate Blood Pressure 122/62 129/59 L [Right Upper Arm] O2 Sat by Pulse 97 89 L Oximetry - Orders/Labs/Meds Orders: Active Orders 24 hr Category Date Time Status Cardiac Monitoring [RC] STAT Care 04/19/18 22:00 Ordered Peripheral IV Care [RC] . DIRECTED Care 04/19/18 22:00 Ordered Pulse Oximetry [RC] CONTINUOUS Care 04/19/18 22:00 Ordered Up With Assistance [RC] ASDIRECTED Care 04/19/18 22:00 Ordered Vital Signs [RC] PFP Care 04/19/18 22:00 Ordered Nothing per Oral Now Diet [DIET] Diet 04/19/18 Breakfast Ordered Chest 1V Frontal [CR] Stat Exams 04/19/18 22:00 Ordered Head wo Cont [CT] Stat Exams 04/19/18 22:00 Ordered CULTURE URINE [RM] Routine Lab 04/19/18 22:02 Ordered UA W/MICROSCOPIC [URIN] Stat Lab 04/19/18 22:00 Ordered Lactated Ringers @ 100 MLS/HR(1,000ml) Med 04/19/18 22:15 Ordered Lactated Ringers [Ringers, Lactated] 1,000 ml IV ASDIRECTED Sodium Chloride 0.9% [Saline Flush] Med 04/19/18 21:59 Ordered 10 ml FLUSH ASDIRECTED PRN Obtain Past Medical Record [OM.PC] Stat Oth 04/19/18 22:00 Ordered Peripheral IV Insertion Adult [OM.PC] Stat Oth 04/19/18 22:00 Ordered Resuscitation Status Stat Resus Stat 04/19/18 21:59 Ordered EKG 12 Lead [EK] Stat Ther 04/19/18 22:00 Ordered Medication Orders Lactated Ringer's (Ringers, Lactated) 1,000 mls @ 100 mls/hr IV ASDIRECTED ALEXA Last Admin: 04/19/18 22:07 Dose: 100 mls/hr Sodium Chloride (Saline Flush) 10 ml FLUSH ASDIRECTED PRN PRN Reason: Keep Vein Open Labs: Laboratory Tests 04/19/18 04/19/18 04/19/18 Range/Units 22:15 22:15 22:15 WBC 4.7 (4.0-10.2) K/uL RBC 4.08 L (4.33-5.41) M/uL Hgb 12.6 L (13.1-16.8) g/dL Hct 35.5 L (39.0-49.0) % MCV 87.0 (84.0-98.0) fL MCH 30.9 (28.2-33.3) pg MCHC 35.5 (31.7-36.0) g/dL RDW 13.0 (11.2-14.1) % Plt Count 135 L (150-350) K/uL Neut % (Auto) 64.4 (45.0-80.0) % Lymph % (Auto) 23.6 (10.0-50.0) % Brooks % (Auto) 8.6 (2.0-14.0) % Eos % (Auto) 3.0 (0.0-5.0) % Baso % (Auto) 0.4 (0.0-2.0) % Neut # (Auto) 3.00 (1.40-7.00) K/uL Lymph # (Auto) 1.10 (0.50-3.50) K/uL Brooks # (Auto) 0.40 (0.00-1.00) K/uL Eos # (Auto) 0.14 (0.00-0.50) K/uL Baso # (Auto) 0.02 (0.00-0.20) K/uL PT (9.8-11.7) SEC INR APTT 26.0 (22.1-29.8) SEC D-Dimer, Quantitative 874 H (0-400) ng/mL Sodium (136-145) mmol/L Potassium (3.5-5.1) mmol/L Chloride (98-107) mmol/L Carbon Dioxide (21.0-32.0) mmol/L BUN (7-18) mg/dL Creatinine (0.51-1.17) mg/dL Est Cr Clr Drug Dosing mL/min Estimated GFR (MDRD) mL/min Glucose (74-106) mg/dL Lactic Acid (0.4-2.0) mmol/L Uric Acid (2.6-7.2) mg/dL Calcium (8.5-10.1) mg/dL Magnesium (1.8-2.4) mg/dL Total Bilirubin (0.2-1.0) mg/dL AST (15-37) U/L ALT (12-78) U/L Alkaline Phosphatase (46-116) IU/L Total Protein (6.4-8.2) g/dL Albumin (3.4-5.0) g/dL 04/19/18 04/19/18 04/19/18 Range/Units 22:15 22:15 22:15 WBC (4.0-10.2) K/uL RBC (4.33-5.41) M/uL Hgb (13.1-16.8) g/dL Hct (39.0-49.0) % MCV (84.0-98.0) fL MCH (28.2-33.3) pg MCHC (31.7-36.0) g/dL RDW (11.2-14.1) % Plt Count (150-350) K/uL Neut % (Auto) (45.0-80.0) % Lymph % (Auto) (10.0-50.0) % Brooks % (Auto) (2.0-14.0) % Eos % (Auto) (0.0-5.0) % Baso % (Auto) (0.0-2.0) % Neut # (Auto) (1.40-7.00) K/uL Lymph # (Auto) (0.50-3.50) K/uL Brooks # (Auto) (0.00-1.00) K/uL Eos # (Auto) (0.00-0.50) K/uL Baso # (Auto) (0.00-0.20) K/uL PT 11.3 (9.8-11.7) SEC INR 1.1 APTT (22.1-29.8) SEC D-Dimer, Quantitative (0-400) ng/mL Sodium 138 (136-145) mmol/L Potassium 3.8 (3.5-5.1) mmol/L Chloride 106 (98-107) mmol/L Carbon Dioxide 22.2 (21.0-32.0) mmol/L BUN 15 (7-18) mg/dL Creatinine 0.93 (0.51-1.17) mg/dL Est Cr Clr Drug Dosing 50.26 mL/min Estimated GFR (MDRD) > 60 mL/min Glucose 181 H (74-106) mg/dL Lactic Acid 1.7 (0.4-2.0) mmol/L Uric Acid 5.1 (2.6-7.2) mg/dL Calcium 8.6 (8.5-10.1) mg/dL Magnesium 2.0 (1.8-2.4) mg/dL Total Bilirubin 1.2 H (0.2-1.0) mg/dL AST 17 (15-37) U/L ALT 16 (12-78) U/L Alkaline Phosphatase 59 (46-116) IU/L Total Protein 6.3 L (6.4-8.2) g/dL Albumin 3.4 (3.4-5.0) g/dL Meds: Medications Generic Name Dose Route Start Last Admin Trade Name Freq PRN Reason Stop Dose Admin Lactated Ringer's 1,000 mls @ 100 mls/hr 04/19/18 22:15 04/19/18 22:07 Ringers, Lactated IV 100 mls/hr ASDIRECTED ALEXA Administration Sodium Chloride 10 ml 04/19/18 21:59 Saline Flush FLUSH ASDIRECTED PRN Keep Vein Open - Radiology Interpretation Free Text/Narrative:: recreation counselor shows normal sinus rhythm with heart rate in the 60s to 70s with no ectopy or arrhythmia Departure - Departure Time of Disposition: 22:55 Disposition: Admitted As Inpatient 66 Condition: Fair Clinical Impression: Hypertension - Discharge Information - Problem List & Annotations (1) Confusion SNOMED Code(s): 000738405 Code(s): R41.0 - DISORIENTATION, UNSPECIFIED Status: Chronic Priority: High Current Visit: No Annotation/Comment:: Note progressive confusion and problems with ADLs during the last several months with patient's and family are considering swing bed care versus senior living placement at [facility] in [place]. Also additional visual hallucinations in the last 3 months. Vitamin B-12 level in the a.m.. Note generalized progressed weakness during the last several months. Care management consultation in the morning. UA could not be collected in the emergency room with culture and sensitivity already ordered. IV fluids initiated secondary to some borderline low blood pressures initially noted by the industrial automation engineer in the patient's home. PT and OT are to be ordered on admission. Note that the patient is still driving, however this should definitely be discontinued if the patient is discharged to home. (2) COPD (chronic obstructive pulmonary disease) SNOMED Code(s): 47996446 Code(s): J44.9 - CHRONIC OBSTRUCTIVE PULMONARY DISEASE, UNSPECIFIED Status : Chronic Priority: Medium Current Visit: Yes Annotation/Comment:: Mild fever today, however no leukocytosis or bronchitic type symptoms. Note some mild hypoxia in the emergency room with no direct evidence of sleep apnea. Consider sleep study at a later time. Chest x-ray be conducted in the a.m. Qualifiers: COPD type: emphysema Emphysema type: panlobular Qualified Code(s): J43.1 - Panlobular emphysema (3) Elevated d-dimer SNOMED Code(s): 334113509 Code(s): R79.89 - OTHER SPECIFIED ABNORMAL FINDINGS OF BLOOD CHEMISTRY Status: Acute Priority: High Current Visit: No Onset Date: 04/18/18 Annotation/Comment:: Venous Doppler studies in the a.m. with consideration of CTA of the chest depending on his clinical course. No clinical evidence of DVT or PE. Low-dose Lovenox to be initiated on admission. (4) Hyperbilirubinemia SNOMED Code(s): 91795339 Code(s): E80.6 - OTHER DISORDERS OF BILIRUBIN METABOLISM Status: Acute Priority: Medium Current Visit: No Onset Date: 04/18/18 Annotation/Comment :: Mild. Observe for now. 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 Further evaluation in the a.m. (5) TIA (transient ischemic attack) SNOMED Code(s): 413784448 Code(s): G45.9 - TRANSIENT CEREBRAL ISCHEMIC ATTACK, UNSPECIFIED Status: Acute Priority: High Current Visit: No Onset Date: 04/18/18 Annotation/ Comment:: Patient is at his normal neurological baseline with no repeat TIA suspected at this time. Note yesterday suspected possible brief TIA with dysarthria with further workup and hospital transfer as above. Stroke code was called in this facility yesterday with stroke code not warranted today secondary to negative workup yesterday. Note that patient is normally seen at the [facility] in [place], however they are requesting treatment in this facility. Neurological checks with vitals. Emotional support provided to all family members. Qualifiers: Transient cerebral ischemia type: unspecified Qualified Code(s): G45.9 - Transient cerebral ischemic attack, unspecified (6) Allergic rhinitis SNOMED Code(s): 70555058 Code(s): J30.9 - ALLERGIC RHINITIS, UNSPECIFIED Status: Chronic Priority : Medium Current Visit: No Annotation/Comment:: Stable by patient history (7) CHF (congestive heart failure) SNOMED Code(s): 07637246 Code(s): I50.9 - HEART FAILURE, UNSPECIFIED Status: Chronic Priority: Medium Current Visit: No Onset Date: 02/28/17 Annotation/Comment:: No chest pain or anginal type symptoms. (8) Coronary arteriosclerosis, CAD SNOMED Code(s): 96789654 Code(s): I25.10 - ATHSCL HEART DISEASE OF [place] CORONARY ARTERY W/O ANG PCTRS Status: Chronic Priority: Medium Current Visit: No Annotation/ Comment:: As above. No chest pain or anginal complaints. (9) Gastroesophageal reflux disease SNOMED Code(s): 704148665 Code(s): K21.9 - GASTRO-ESOPHAGEAL REFLUX DISEASE WITHOUT ESOPHAGITIS Status: Chronic Priority: Medium Current Visit: No Annotation/Comment:: No abdominal complaints at this time. Stable borderline anemia. (10) Hyperlipidemia SNOMED Code(s): 51836852 Code(s): E78.5 - HYPERLIPIDEMIA, UNSPECIFIED Status: Chronic Priority: Medium Current Visit: No Annotation/Comment:: Under therapy Qualifiers: Hyperlipidemia type: unspecified Qualified Code(s): E78.5 - Hyperlipidemia , unspecified (11) Hypothyroidism SNOMED Code(s): 07257820 Code(s): E03.9 - HYPOTHYROIDISM, UNSPECIFIED Status: Chronic Priority: Medium Current Visit: No Annotation/Comment:: TSH normal on 04/18/18. 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 (13) Thrombocytopenia SNOMED Code(s): 885973212 Code(s): D69.6 - THROMBOCYTOPENIA, UNSPECIFIED Status: Chronic Priority: Medium Current Visit: No Onset Date: 02/28/17 Annotation/Comment:: Mild thrombocytopeniastable. Observe for now (14) Hyperglycemia SNOMED Code(s): 64209811 Code(s): R73.9 - HYPERGLYCEMIA, UNSPECIFIED Status: Acute Priority: Medium Current Visit: No Onset Date: ~02/28/17 Annotation/Comment:: Glycosylated hemoglobin in the a.m. (15) Hypertension SNOMED Code(s): 82414891 Code(s): I10 - ESSENTIAL (PRIMARY) HYPERTENSION Status: Chronic Priority : Medium Current Visit: Yes Annotation/Comment:: Blood pressures were stable in the emergency room. IV fluids initiated as above. Qualifiers: Hypertension type: essential hypertension Qualified Code(s): I10 - Essential (primary) hypertension - Problem List Review Problem List Initiated/Reviewed/Updated: Yes - My Orders Last 24 Hours: My Active Orders 04/19/18 21:59 Sodium Chloride 0.9% [Saline Flush] 10 ml FLUSH ASDIRECTED PRN Resuscitation Status Stat 04/19/18 22:00 Cardiac Monitoring [RC] STAT Peripheral IV Care [RC] . DIRECTED Pulse Oximetry [RC] CONTINUOUS Up With Assistance [RC] ASDIRECTED Vital Signs [RC] PFP Chest 1V Frontal [CR] Stat Head wo Cont [CT] Stat UA W/MICROSCOPIC [URIN] Stat Obtain Past Medical Record [OM.PC] Stat Peripheral IV Insertion Adult [OM.PC] Stat EKG 12 Lead [EK] Stat 04/19/18 22:02 CULTURE URINE [RM] Routine 04/19/18 22:15 Lactated Ringers @ 100 MLS/HR(1,000ml) Lactated Ringers [Ringers, Lactated] 1, 000 ml IV ASDIRECTED 04/19/18 Breakfast Nothing per Oral Now Diet [DIET] - Assessment/Plan Admission H&P: Please use this note as an admission H&P Last 24 Hours: My Active Orders 04/19/18 21:59 Sodium Chloride 0.9% [Saline Flush] 10 ml FLUSH ASDIRECTED PRN Resuscitation Status Stat 04/19/18 22:00 Cardiac Monitoring [RC] STAT Peripheral IV Care [RC] . DIRECTED Pulse Oximetry [RC] CONTINUOUS Up With Assistance [RC] ASDIRECTED Vital Signs [RC] PFP Chest 1V Frontal [CR] Stat Head wo Cont [CT] Stat UA W/MICROSCOPIC [URIN] Stat Obtain Past Medical Record [OM.PC] Stat Peripheral IV Insertion Adult [OM.PC] Stat EKG 12 Lead [EK] Stat 04/19/18 22:02 CULTURE URINE [RM] Routine 04/19/18 22:15 Lactated Ringers @ 100 MLS/HR(1,000ml) Lactated Ringers [Ringers, Lactated] 1, 000 ml IV ASDIRECTED 04/19/18 Breakfast Nothing per Oral Now Diet [DIET] Assessment:: As above Plan: As above. Extensive precautions were given to the patient and his family, who are in agreement with the treatment plan. The patient will require about 3-4 days of inpatient/acute care secondary to multiple health problems as above.
[2018-04-19] MEDS: Lactated Ringers 1,000 ML IV SCH (22:07)
[2018-04-19 22:30] LABS: CHLORIDE,CL 106 mmol/L (98-107); SODIUM,NA 138 mmol/L (136-145)
[2018-04-19] MEDS ORDERED: Acetaminophen 325 MG Tab PO PRN (23:18)
[2018-04-19] MEDS: Enoxaparin 30 MG/0.3 ML Syringe SUBCUT SCH (23:40)
[2018-04-20] MEDS ORDERED: Metoprolol Tartrate 50 MG Tab PO SCH (08:00)
[2018-04-20] MEDS: Fish Oil/Omega-3 Fatty Acids 1 Gm Cap PO SCH (08:51)
[2018-04-20] MEDS: Finasteride 5 MG Tab PO SCH (08:59)
[2018-04-20] MEDS: Lutein/Minerals/Vitamin C/Vitamin E Acetate Cap PO SCH (08:59)
[2018-04-20] MEDS: Omeprazole 20 MG Cap.CR PO SCH (08:59)
[2018-04-20] MEDS: Levothyroxine 88 MCG Tab PO SCH (09:03)
[2018-04-20] MEDS: Polyethylene Glycol 3350 Powder 17 GM Packet PO SCH (11:20)
[2018-04-20] MEDS: Lactated Ringers 1,000 ML IV SCH (13:20)
--- NOTE | 2018-04-20 14:01 | PCM.PN ---
- General Info Date of Service: 04/20/18 Admission Dx/Problem (Free Text): 1. Recurrent TIA 2. Confusion affecting ADLs 3. Generalized weakness Subjective Update: Patient is a poor historian secondary to significant organic brain syndrome and mild sedation this morning with no apparent current complaints Functional Status: Reports: Pain Controlled, Tolerating Diet, Urinating. Denies : Ambulating, New Symptoms, Incentive Spirometry Pain Score: 0 - Review of Systems General: Reports: Fever, Weakness (Severe generalized), Fatigue (Stable), Appetite (Suboptimal). Denies: Chills, Night Sweats HEENT: Reports: No Symptoms. Denies: Ear Pain, Eye Pain, Headaches, Sinus Congestion, Sore Throat, Visual Changes Pulmonary: Reports: No Symptoms Cardiovascular: Reports: No Symptoms Gastrointestinal: Reports: No Symptoms Genitourinary: Reports: No Symptoms Musculoskeletal: Reports: No Symptoms Skin: Reports: No Symptoms Neurological: Reports: Confusion, Difficulty Walking, Weakness. Denies: Headache, Seizure, Syncope Psychiatric: Reports: Confusion, Depression, Anxiety. Denies: Agitation, Hallucinations - Patient Data Vitals - Most Recent: Last Vital Signs Temp 36 C 04/20/18 12:00 Pulse 55 L 04/20/18 12:00 Resp 18 04/20/18 09:00 BP 140/90 04/20/18 12:00 Pulse Ox 97 04/20/18 12:00 Vital Signs - 24 hr 04/19/18 04/19/18 04/19/18 22:00 22:14 23:18 Temperature [ 37.4 C 37.6 C Temporal] Pulse, Peripheral Pulse, 63 68 Peripheral [ Pulse Oximetry] Respiratory 18 20 Rate Blood Pressure Blood Pressure 122/62 129/59 L [Right Upper Arm] O2 Sat by Pulse 97 89 L 98 Oximetry 04/19/18 04/20/18 04/20/18 23:28 04:00 08:00 Temperature [ 37.6 C 36.7 C 36 C Temporal] Pulse, Peripheral Pulse, 62 55 L 55 L Peripheral [ Pulse Oximetry] Respiratory 20 18 17 Rate Blood Pressure Blood Pressure 133/66 132/62 119/62 [Right Upper Arm] O2 Sat by Pulse 98 98 98 Oximetry 04/20/18 04/20/18 04/20/18 08:58 09:00 12:00 Temperature [ 36.8 C 36 C Temporal] Pulse, 42 L Peripheral Pulse, 42 L 55 L Peripheral [ Pulse Oximetry] Respiratory 18 Rate Blood Pressure 119/62 Blood Pressure 112/57 L 140/90 [Right Upper Arm] O2 Sat by Pulse 98 97 Oximetry Weight - Most Recent: 78.698 kg I&O - Last 24 Hours: Intake & Output 04/19/18 04/20/18 04/20/18 22:59 06:59 14:59 Intake Total 100 614 360 Output Total 1125 610 Balance 100 -511 -250 Imaging Impressions - Last 24 Hours: 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 No evidence of DVT Chest x-ray, portable, shows evidence of moderate to severe COPD and pulmonary fibrotic changes with additional mild prominence of the aortic arch and mild aortic valve calcification. Moderate osteoarthritic and osteoporotic changes. No cardiomegaly, CHF, pneumothorax, pulmonary infiltrates Lab Results Last 24 Hours: Laboratory Results - last 24 hr 04/19/18 04/19/18 04/19/18 Range/Units 22:15 22:15 22:15 WBC 4.7 (4.0-10.2) K/uL RBC 4.08 L (4.33-5.41) M/uL Hgb 12.6 L (13.1-16.8) g/dL Hct 35.5 L (39.0-49.0) % MCV 87.0 (84.0-98.0) fL MCH 30.9 (28.2-33.3) pg MCHC 35.5 (31.7-36.0) g/dL RDW 13.0 (11.2-14.1) % Plt Count 135 L (150-350) K/uL Neut % (Auto) 64.4 (45.0-80.0) % Lymph % (Auto) 23.6 (10.0-50.0) % [place] % (Auto) 8.6 (2.0-14.0) % Eos % (Auto) 3.0 (0.0-5.0) % Baso % (Auto) 0.4 (0.0-2.0) % Neut # (Auto) 3.00 (1.40-7.00) K/uL Lymph # (Auto) 1.10 (0.50-3.50) K/uL [place] # (Auto) 0.40 (0.00-1.00) K/uL Eos # (Auto) 0.14 (0.00-0.50) K/uL Baso # (Auto) 0.02 (0.00-0.20) K/uL PT (9.8-11.7) SEC INR APTT 26.0 (22.1-29.8) SEC D-Dimer, Quantitative 874 H (0-400) ng/mL Sodium (136-145) mmol/L Potassium (3.5-5.1) mmol/L Chloride (98-107) mmol/L Carbon Dioxide (21.0-32.0) mmol/L BUN (7-18) mg/dL Creatinine (0.51-1.17) mg/dL Est Cr Clr Drug Dosing mL/min Estimated GFR (MDRD) mL/min Glucose (74-106) mg/dL Hemoglobin A1c (4.3-5.7) % Lactic Acid (0.4-2.0) mmol/L Uric Acid (2.6-7.2) mg/dL Calcium (8.5-10.1) mg/dL Magnesium (1.8-2.4) mg/dL Total Bilirubin (0.2-1.0) mg/dL Direct Bilirubin (0.0-0.2) mg/dL Indirect Bilirubin AST (15-37) U/L ALT (12-78) U/L Alkaline Phosphatase (46-116) IU/L Total Protein (6.4-8.2) g/dL Albumin (3.4-5.0) g/dL Vitamin B12 (193-986) pg/mL Specimen Type Urine Color Urine Appearance Urine pH (5.0-9.0) Ur Specific Walker (1.005-1.030) Urine Protein (NEGATIVE) mg/dL Urine Glucose (UA) (NEGATIVE) mg/dL Urine Ketones (NEGATIVE) mg/dL Urine Occult Blood (NEGATIVE) Urine Nitrite (NEGATIVE) Urine Bilirubin (NEGATIVE) Urine Urobilinogen (0.2-1.0) E.U./dL Ur Leukocyte Esterase (NEGATIVE) Urine RBC /HPF Urine WBC /HPF Ur Epithelial Cells /LPF Other Crystals /HPF Urine Bacteria (NONE TO FEW) /HPF 06/27/18 06/27/18 06/27/18 Range/Units 22:15 22:15 22:15 WBC (4.0-10.2) K/uL RBC (4.33-5.41) M/uL Hgb (13.1-16.8) g/dL Hct (39.0-49.0) % MCV (84.0-98.0) fL MCH (28.2-33.3) pg MCHC (31.7-36.0) g/dL RDW (11.2-14.1) % Plt Count (150-350) K/uL Neut % (Auto) (45.0-80.0) % Lymph % (Auto) (10.0-50.0) % [place] % (Auto) (2.0-14.0) % Eos % (Auto) (0.0-5.0) % Baso % (Auto) (0.0-2.0) % Neut # (Auto) (1.40-7.00) K/uL Lymph # (Auto) (0.50-3.50) K/uL [place] # (Auto) (0.00-1.00) K/uL Eos # (Auto) (0.00-0.50) K/uL Baso # (Auto) (0.00-0.20) K/uL PT 11.3 (9.8-11.7) SEC INR 1.1 APTT (22.1-29.8) SEC D-Dimer, Quantitative (0-400) ng/mL Sodium 138 (136-145) mmol/L Potassium 3.8 (3.5-5.1) mmol/L Chloride 106 (98-107) mmol/L Carbon Dioxide 22.2 (21.0-32.0) mmol/L BUN 15 (7-18) mg/dL Creatinine 0.93 (0.51-1.17) mg/dL Est Cr Clr Drug Dosing 50.26 mL/min Estimated GFR (MDRD) > 60 mL/min Glucose 181 H (74-106) mg/dL Hemoglobin A1c (4.3-5.7) % Lactic Acid 1.7 (0.4-2.0) mmol/L Uric Acid 5.1 (2.6-7.2) mg/dL Calcium 8.6 (8.5-10.1) mg/dL Magnesium 2.0 (1.8-2.4) mg/dL Total Bilirubin 1.2 H (0.2-1.0) mg/dL Direct Bilirubin (0.0-0.2) mg/dL Indirect Bilirubin AST 17 (15-37) U/L ALT 16 (12-78) U/L Alkaline Phosphatase 59 (46-116) IU/L Total Protein 6.3 L (6.4-8.2) g/dL Albumin 3.4 (3.4-5.0) g/dL Vitamin B12 (193-986) pg/mL Specimen Type Urine Color Urine Appearance Urine pH (5.0-9.0) Ur Specific Walker (1.005-1.030) Urine Protein (NEGATIVE) mg/dL Urine Glucose (UA) (NEGATIVE) mg/dL Urine Ketones (NEGATIVE) mg/dL Urine Occult Blood (NEGATIVE) Urine Nitrite (NEGATIVE) Urine Bilirubin (NEGATIVE) Urine Urobilinogen (0.2-1.0) E.U./dL Ur Leukocyte Esterase (NEGATIVE) Urine RBC /HPF Urine WBC /HPF Ur Epithelial Cells /LPF Other Crystals /HPF Urine Bacteria (NONE TO FEW) /HPF 04/19/18 04/20/18 04/20/18 Range/Units 23:00 07:40 07:40 WBC 4.7 (4.0-10.2) K/uL RBC 4.17 L (4.33-5.41) M/uL Hgb 12.8 L (13.1-16.8) g/dL Hct 36.3 L (39.0-49.0) % MCV 87.1 (84.0-98.0) fL MCH 30.7 (28.2-33.3) pg MCHC 35.3 (31.7-36.0) g/dL RDW 12.8 (11.2-14.1) % Plt Count 128 L (150-350) K/uL Neut % (Auto) 57.0 (45.0-80.0) % Lymph % (Auto) 29.7 (10.0-50.0) % [place] % (Auto) 9.1 (2.0-14.0) % Eos % (Auto) 3.6 (0.0-5.0) % Baso % (Auto) 0.6 (0.0-2.0) % Neut # (Auto) 2.70 (1.40-7.00) K/uL Lymph # (Auto) 1.41 (0.50-3.50) K/uL [place] # (Auto) 0.43 (0.00-1.00) K/uL Eos # (Auto) 0.17 (0.00-0.50) K/uL Baso # (Auto) 0.03 (0.00-0.20) K/uL PT (9.8-11.7) SEC INR APTT (22.1-29.8) SEC D-Dimer, Quantitative 824 H (0-400) ng/mL Sodium (136-145) mmol/L Potassium (3.5-5.1) mmol/L Chloride (98-107) mmol/L Carbon Dioxide (21.0-32.0) mmol/L BUN (7-18) mg/dL Creatinine (0.51-1.17) mg/dL Est Cr Clr Drug Dosing mL/min Estimated GFR (MDRD) mL/min Glucose (74-106) mg/dL Hemoglobin A1c (4.3-5.7) % Lactic Acid (0.4-2.0) mmol/L Uric Acid (2.6-7.2) mg/dL Calcium (8.5-10.1) mg/dL Magnesium (1.8-2.4) mg/dL Total Bilirubin (0.2-1.0) mg/dL Direct Bilirubin (0.0-0.2) mg/dL Indirect Bilirubin AST (15-37) U/L ALT (12-78) U/L Alkaline Phosphatase (46-116) IU/L Total Protein (6.4-8.2) g/dL Albumin (3.4-5.0) g/dL Vitamin B12 (193-986) pg/mL Specimen Type Urincc Urine Color Dark yellow Urine Appearance Clear Urine pH 6.0 (5.0-9.0) Ur Specific Walker 1.015 (1.005-1.030) Urine Protein Negative (NEGATIVE) mg/dL Urine Glucose (UA) Negative (NEGATIVE) mg/dL Urine Ketones Negative (NEGATIVE) mg/dL Urine Occult Blood Negative (NEGATIVE) Urine Nitrite Negative (NEGATIVE) Urine Bilirubin Negative (NEGATIVE) Urine Urobilinogen 1.0 (0.2-1.0) E.U./dL Ur Leukocyte Esterase Negative (NEGATIVE) Urine RBC 0-5 /HPF Urine WBC 0-5 /HPF Ur Epithelial Cells Few /LPF Other Crystals /HPF Urine Bacteria Few (NONE TO FEW) /HPF 04/20/18 04/20/18 Range/Units 07:40 07:40 WBC (4.0-10.2) K/uL RBC (4.33-5.41) M/uL Hgb (13.1-16.8) g/dL Hct (39.0-49.0) % MCV (84.0-98.0) fL MCH (28.2-33.3) pg MCHC (31.7-36.0) g/dL RDW (11.2-14.1) % Plt Count (150-350) K/uL Neut % (Auto) (45.0-80.0) % Lymph % (Auto) (10.0-50.0) % [place] % (Auto) (2.0-14.0) % Eos % (Auto) (0.0-5.0) % Baso % (Auto) (0.0-2.0) % Neut # (Auto) (1.40-7.00) K/uL Lymph # (Auto) (0.50-3.50) K/uL [place] # (Auto) (0.00-1.00) K/uL Eos # (Auto) (0.00-0.50) K/uL Baso # (Auto) (0.00-0.20) K/uL PT (9.8-11.7) SEC INR APTT (22.1-29.8) SEC D-Dimer, Quantitative (0-400) ng/mL Sodium (136-145) mmol/L Potassium (3.5-5.1) mmol/L Chloride (98-107) mmol/L Carbon Dioxide (21.0-32.0) mmol/L BUN (7-18) mg/dL Creatinine (0.51-1.17) mg/dL Est Cr Clr Drug Dosing mL/min Estimated GFR (MDRD) mL/min Glucose (74-106) mg/dL Hemoglobin A1c 5.7 (4.3-5.7) % Lactic Acid (0.4-2.0) mmol/L Uric Acid (2.6-7.2) mg/dL Calcium (8.5-10.1) mg/dL Magnesium (1.8-2.4) mg/dL Total Bilirubin 1.2 H (0.2-1.0) mg/dL Direct Bilirubin 0.2 (0.0-0.2) mg/dL Indirect Bilirubin 1.0 AST (15-37) U/L ALT (12-78) U/L Alkaline Phosphatase (46-116) IU/L Total Protein (6.4-8.2) g/dL Albumin (3.4-5.0) g/dL Vitamin B12 260 (193-986) pg/mL Specimen Type Urine Color Urine Appearance Urine pH (5.0-9.0) Ur Specific Walker (1.005-1.030) Urine Protein (NEGATIVE) mg/dL Urine Glucose (UA) (NEGATIVE) mg/dL Urine Ketones (NEGATIVE) mg/dL Urine Occult Blood (NEGATIVE) Urine Nitrite (NEGATIVE) Urine Bilirubin (NEGATIVE) Urine Urobilinogen (0.2-1.0) E.U./dL Ur Leukocyte Esterase (NEGATIVE) Urine RBC /HPF Urine WBC /HPF Ur Epithelial Cells /LPF Other Crystals /HPF Urine Bacteria (NONE TO FEW) /HPF [facility] Results Last 24 Hours: Urine culture and sensitivity pending Med Orders - Current: Current Medications Acetaminophen (Tylenol) 650 mg PO Q4H PRN PRN Reason: Pain Enoxaparin Sodium (Lovenox) 30 mg SUBCUT Q24H [facility] Last Admin: 04/19/18 23:40 Dose: 30 mg Finasteride (Proscar) 5 mg PO DAILY [facility] Last Admin: 04/20/18 08:59 Dose: 5 mg Fish Oil (Fish Oil) 1 gm PO DAILY [facility] Last Admin: 04/20/18 08:51 Dose: 1 gm Lactated Ringer's (Ringers, Lactated) 1,000 mls @ 80 mls/hr IV ASDIRECTED [facility] Last Admin: 04/20/18 13:20 Dose: 100 mls/hr Levothyroxine Sodium (Synthroid) 88 mcg PO ACBREAKFAST [facility] Last Admin: 04/20/18 09:03 Dose: 88 mcg Metoprolol Tartrate (Lopressor) 12.5 mg PO BEDTIME [facility] Omeprazole (Omeprazole) 20 mg PO DAILY [facility] Last Admin: 04/20/18 08:59 Dose: 20 mg Polyethylene Glycol (Miralax) 17 gm PO Q48H [facility] Last Admin: 04/20/18 11:20 Dose: Not Given Sodium Chloride (Saline Flush) 10 ml FLUSH ASDIRECTED PRN PRN Reason: Keep Vein Open Sodium Chloride (Saline Flush) 10 ml FLUSH Q12HR PRN PRN Reason: Keep Vein Open Temazepam (Restoril) 15 mg PO BEDTIME PRN PRN Reason: Insomnia Vit C/Vit E/Zinc/Copper/Lutein (Ocuvite Lutein) 1 each PO DAILY [facility] Last Admin: 04/20/18 08:59 Dose: 1 each Discontinued Medications Metoprolol Tartrate (Lopressor) 12.5 mg PO BID@08,20 [facility] Last Admin: 04/20/18 08:58 Dose: Not Given - Exam Quality Assessment: Supplemental Oxygen, DVT Prophylaxis (Lovenox). No: Central Line/PICC, Urine Catheter, Skin Breakdown, Restraints General: Alert, No Acute Distress, Sedated (Mild). No: Oriented (Severe confusion/organic brain syndrome) HEENT: Pupils Equal, Pupils Reactive, EOMI, Mucous Membr. Moist/[place] Neck: Supple, Trachea Midline, No JVD, No Thyromegaly, Carotid Bruit (Mild Bilateral carotid bruits versus transmitted heart sounds). No: Lymphadenopathy Lungs: Normal Respiratory Effort, Rales (Mild bilateral basilar) Cardiovascular: Regular Rhythm, Bradycardia (Moderate), Murmurs (Mild 1/6 JORGE A of the aortic valve). No: Gallops, Rubs GI/Abdominal Exam: Normal Bowel Sounds, Soft, Non-Tender, No Organomegaly, No Distention, No Abnormal Bruit, No Mass. No: Guarding (Male) Exam: Deferred Back Exam: Normal Inspection, Full Range of Motion. No: CVA Tenderness (L), CVA Tenderness (R), Muscle Spasm Extremities: Normal Inspection, Normal Range of Motion, Non-Tender, No Pedal Edema, Normal Capillary Refill Peripheral Pulses: 2+: Radial (L), Radial (R), Dorsalis Pedis (L), Dorsalis Pedis (R) Skin: Warm, Dry, Intact. No: Ecchymosis Neurological: No New Focal Deficit, Other (Confusion as above. Moderate to severe generalized weakness) - Problem List & Annotations (1) Confusion SNOMED Code(s): 438104709 Code(s): R41.0 - DISORIENTATION, UNSPECIFIED Status: Chronic Priority: High Current Visit: Yes Annotation/Comment:: Note progressive confusion and problems with ADLs during the last several months with patient's and family considering swing bed care versus fpc placement at [facility]. Also additional visual hallucinations in the last 3 months. Vitamin B-12 level this morning was low normal. Initiate vitamin D 12 therapy in attempt to improve his confusion with recommended repeat evaluation one month. Note generalized progressed weakness during the last several months. Care management consultation in the morning. UA negative to this point with culture and sensitivity pending. IV fluids initiated on admission and are to be decreased somewhat secondary to his previous history of heart disease. Note some borderline low blood pressures initially noted by the wrapper counter in the patient's home. PT and OT have been ordered. Note that the patient is still driving, however this should definitely be discontinued, if the patient is discharged to home. (2) COPD (chronic obstructive pulmonary disease) SNOMED Code(s): 02896531 Code(s): J44.9 - CHRONIC OBSTRUCTIVE PULMONARY DISEASE, UNSPECIFIED Status : Chronic Priority: Medium Current Visit: Yes Qualifiers: COPD type: emphysema Emphysema type: panlobular Qualified Code(s): J43.1 - Panlobular emphysema Annotation/Comment:: Mild fever today, however no leukocytosis or bronchitic type symptoms. Note some mild hypoxia in the emergency room with no direct evidence of sleep apnea. Consider sleep study at a later time. Chest x-ray shows no evidence of pneumonia today. Consider antibiotic therapy depending on his clinical course. (3) Elevated d-dimer SNOMED Code(s): 143177435 Code(s): R79.89 - OTHER SPECIFIED ABNORMAL FINDINGS OF BLOOD CHEMISTRY Status: Acute Priority: High Current Visit: Yes Onset Date: 04/18/18 Annotation/Comment:: Venous Doppler studies were negative this morning as above. Consider of CTA of the chest depending on his clinical course. No clinical evidence of DVT or PE. Low-dose Lovenox to be continued for now. Repeat blood work in the a.m. (4) Hyperbilirubinemia SNOMED Code(s): 20008467 Code(s): E80.6 - OTHER DISORDERS OF BILIRUBIN METABOLISM Status: Acute Priority: Medium Current Visit: Yes Onset Date: 04/18/18 Annotation/ Comment:: Mild. Observe for now. 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 Direct and indirect bilirubin normal today. (5) TIA (transient ischemic attack) SNOMED Code(s): 667619428 Code(s): G45.9 - TRANSIENT CEREBRAL ISCHEMIC ATTACK, UNSPECIFIED Status: Acute Priority: High Current Visit: Yes Onset Date: 04/18/18 Qualifiers: Transient cerebral ischemia type: unspecified Qualified Code(s): G45.9 - Transient cerebral ischemic attack, unspecified Annotation/Comment:: Patient is at his normal neurological baseline with no repeat TIA suspected at this time. Note suspected possible brief TIA with dysarthria on 04/18 with further workup and hospital transfer as above. Stroke code was called in this facility in 04/18 with stroke code not warranted prior to admission secondary to negative workup yesterday. Note that patient is normally seen at the [facility], however they are requesting treatment in this facility. Neurological checks with vitals have been stable. Emotional support provided to all family members. (6) Allergic rhinitis SNOMED Code(s): 10947294 Code(s): J30.9 - ALLERGIC RHINITIS, UNSPECIFIED Status: Chronic Priority : Medium Current Visit: Yes Annotation/Comment:: Stable by patient history (7) CHF (congestive heart failure) SNOMED Code(s): 01332855 Code(s): I50.9 - HEART FAILURE, UNSPECIFIED Status: Chronic Priority: Medium Current Visit: Yes Onset Date: 02/28/17 Annotation/Comment:: No chest pain or anginal type symptoms. (8) Coronary arteriosclerosis, CAD SNOMED Code(s): 77148433 Code(s): I25.10 - ATHSCL HEART DISEASE OF [place] CORONARY ARTERY W/O ANG PCTRS Status: Chronic Priority: Medium Current Visit: Yes Annotation/ Comment:: As above. No chest pain or anginal complaints. EKG and blood work in the a.m. (9) Gastroesophageal reflux disease SNOMED Code(s): 773981448 Code(s): K21.9 - GASTRO-ESOPHAGEAL REFLUX DISEASE WITHOUT ESOPHAGITIS Status: Chronic Priority: Medium Current Visit: Yes Annotation/Comment:: No abdominal complaints at this time. Stable borderline anemia. (10) Hyperlipidemia SNOMED Code(s): 97425723 Code(s): E78.5 - HYPERLIPIDEMIA, UNSPECIFIED Status: Chronic Priority: Medium Current Visit: Yes Qualifiers: Hyperlipidemia type: unspecified Qualified Code(s): E78.5 - Hyperlipidemia , unspecified Annotation/Comment:: Under therapy (11) Hypothyroidism SNOMED Code(s): 83798425 Code(s): E03.9 - HYPOTHYROIDISM, UNSPECIFIED Status: Chronic Priority: Medium Current Visit: No Annotation/Comment:: TSH normal on 04/18/18. 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 (13) Thrombocytopenia SNOMED Code(s): 422779159 Code(s): D69.6 - THROMBOCYTOPENIA, UNSPECIFIED Status: Chronic Priority: Medium Current Visit: No Onset Date: 02/28/17 Annotation/Comment:: Mild thrombocytopeniastable. Observe for now (14) Hyperglycemia SNOMED Code(s): 00036948 Code(s): R73.9 - HYPERGLYCEMIA, UNSPECIFIED Status: Acute Priority: Medium Current Visit: No Onset Date: ~02/28/17 Annotation/Comment:: Glycosylated hemoglobin normal this morning. (15) Hypertension SNOMED Code(s): 66873155 Code(s): I10 - ESSENTIAL (PRIMARY) HYPERTENSION Status: Chronic Priority : Medium Current Visit: Yes Qualifiers: Hypertension type: essential hypertension Qualified Code(s): I10 - Essential (primary) hypertension Annotation/Comment:: Blood pressures were stable in the emergency room and during this hospitalization. IV fluids initiated as above. - Problem List Review Problem List Initiated/Reviewed/Updated: Yes - My Orders Last 24 Hours: My Active Orders 04/19/18 21:59 Sodium Chloride 0.9% [Saline Flush] 10 ml FLUSH ASDIRECTED PRN Resuscitation Status Stat 04/19/18 22:00 Cardiac Monitoring [RC] Q2HR Peripheral IV Care [RC] 08,20 Chest 1V Frontal [CR] Stat Head wo Cont [CT] Stat Peripheral IV Insertion Adult [OM.PC] Stat EKG 12 Lead [EK] Stat 04/19/18 22:15 Lactated Ringers [Ringers, Lactated] 1,000 ml IV ASDIRECTED 04/19/18 23:00 CULTURE URINE [RM] Routine UA W/MICROSCOPIC [URIN] Stat 04/19/18 23:18 Communication Order [RC] 08,20 Height and Weight [RC] DAILY Intake and Output Strict [RC] ASDIRECTED Oxygen Therapy [RC] 2300 Pulse Oximetry [RC] ASDIRECTED Up With Assistance [RC] ASDIRECTED Vital Signs [RC] Q4HR OCCULT BLOOD DIAGNOSTIC [OP] Stat Acetaminophen [Tylenol] 650 mg PO Q4H PRN Sodium Chloride 0.9% [Saline Flush] 10 ml FLUSH Q12HR PRN Temazepam [Restoril] 15 mg PO BEDTIME PRN Antiembolic Hose [OM.PC] Routine DVT/VTE Prophylaxis Reflex [OM.PC] Routine GM Immunization Reflex [OM.PC] Click To Edit 04/19/18 23:19 Antiembolic Devices [RC] 08,20 Communication Order [RC] Q4HR Communication, Vaccine [RC] PER UNIT ROUTINE VTE/DVT Education [RC] PER UNIT ROUTINE Vaccines to be Administered [RC] PER UNIT ROUTINE 04/19/18 23:20 Consult to Case Management [CONS] Routine PT Evaluation and Treatment [CONS] Routine 04/19/18 23:21 OT Evaluation and Treatment [CONS] Routine 04/19/18 23:30 H PYLORI STOOL ANTIGEN [MREF] ONETIME Enoxaparin [Lovenox] 30 mg SUBCUT Q24H 04/20/18 05:11 Chest 2V [CR] Routine Venous Doppler Lwr Ext Bi [US] Urgent 04/20/18 07:30 Levothyroxine [Synthroid] 88 mcg PO ACBREAKFAST 04/20/18 08:00 Finasteride [Proscar] 5 mg PO DAILY Fish Oil/[place]-3 Fatty Acids [Fish Oil] 1 gm PO DAILY Lutein/Min/Vit C/Vit E Acetate [Ocuvite Lutein] 1 each PO DAILY Omeprazole 20 mg PO DAILY 04/20/18 20:00 Metoprolol Tartrate [Lopressor] 12.5 mg PO BEDTIME 04/20/18 Breakfast Fluid Restriction [DIET] - Assessment Assessment:: As above - Plan Plan:: As above. Extensive precautions were given to the patient and his family, who are in agreement with the treatment plan. Anticipate about 2 additional days of hospitalization with recommended future long-term care as above.
[2018-04-20] MEDS ORDERED: Cyanocobalamin (Vitamin B12) 1,000 MCG/ML SDV IM ONE (14:30)
[2018-04-20] MEDS: Metoprolol Tartrate 25 MG Tab PO SCH (20:22)
[2018-04-20] MEDS: Enoxaparin 30 MG/0.3 ML Syringe SUBCUT SCH (22:49)
[2018-04-20] MEDS: Temazepam 15 MG Cap PO PRN (22:52)
[2018-04-21 07:27] LABS: CHLORIDE,CL 107 mmol/L (98-107); SODIUM,NA 140 mmol/L (136-145)
[2018-04-21] MEDS: Levothyroxine 88 MCG Tab PO SCH (08:16)
[2018-04-21] MEDS: Finasteride 5 MG Tab PO SCH (08:17)
[2018-04-21] MEDS: Omeprazole 20 MG Cap.CR PO SCH (08:17)
[2018-04-21] MEDS: Fish Oil/Omega-3 Fatty Acids 1 Gm Cap PO SCH (08:17)
[2018-04-21] MEDS: Lutein/Minerals/Vitamin C/Vitamin E Acetate Cap PO SCH (08:17)
[2018-04-21] MEDS: Cyanocobalamin (Vitamin B12) 1,000 MCG Tab PO SCH (08:17)
[2018-04-21] MEDS: Polyethylene Glycol 3350 Powder 17 GM Packet PO SCH (13:04)
--- NOTE | 2018-04-21 13:18 | PCM.PN ---
- General Info Date of Service: 04/21/18 Admission Dx/Problem (Free Text): 1. Recurrent TIA 2. Confusion affecting ADLs 3. Generalized weakness Subjective Update: Patient says that he feels well. No acute complaints. No observed changes per staff members. Functional Status: Reports: Pain Controlled, Tolerating Diet, Ambulating (with assistance), Urinating. Denies: New Symptoms - Review of Systems General: Reports: Weakness. Denies: Fever, Malaise, Chills, Night Sweats HEENT: Reports: Glasses. Denies: Headaches, Visual Changes Pulmonary: Reports: No Symptoms. Denies: Shortness of Breath, Pleuritic Chest Pain, Cough, Sputum, Hemoptysis, Wheezing Cardiovascular: Reports: No Symptoms. Denies: Chest Pain Gastrointestinal: Reports: No Symptoms (no acute changes per patient) Genitourinary: Reports: No Symptoms Musculoskeletal: Reports: No Symptoms (No acute changes) Skin: Reports: No Symptoms Neurological: Reports: Confusion, Weakness Psychiatric: Reports: Confusion, Hallucinations - Patient Data Vitals - Most Recent: Last Vital Signs Temp 36.5 C 04/21/18 08:06 Pulse 52 L 04/21/18 08:06 Resp 18 04/21/18 08:06 BP 102/43 L 04/21/18 08:06 Pulse Ox 98 04/21/18 08:06 Weight - Most Recent: 78.698 kg I&O - Last 24 Hours: Intake & Output 04/20/18 04/21/18 04/21/18 22:59 06:59 14:59 Intake Total 60 Output Total 175 2245 150 Balance -175 -1615 -150 Lab Results Last 24 Hours: Laboratory Results - last 24 hr 04/21/18 04/21/18 04/21/18 Range/Units 06:50 06:50 06:50 WBC 5.2 (4.0-10.2) K/uL RBC 4.19 L (4.33-5.41) M/uL Hgb 12.9 L (13.1-16.8) g/dL Hct 36.3 L (39.0-49.0) % MCV 86.6 (84.0-98.0) fL MCH 30.8 (28.2-33.3) pg MCHC 35.5 (31.7-36.0) g/dL RDW 12.8 (11.2-14.1) % Plt Count 126 L (150-350) K/uL Neut % (Auto) 62.2 (45.0-80.0) % Lymph % (Auto) 25.4 (10.0-50.0) % Leslie % (Auto) 8.7 (2.0-14.0) % Eos % (Auto) 3.3 (0.0-5.0) % Baso % (Auto) 0.4 (0.0-2.0) % Neut # (Auto) 3.20 (1.40-7.00) K/uL Lymph # (Auto) 1.31 (0.50-3.50) K/uL Leslie # (Auto) 0.45 (0.00-1.00) K/uL Eos # (Auto) 0.17 (0.00-0.50) K/uL Baso # (Auto) 0.02 (0.00-0.20) K/uL D-Dimer, Quantitative 760 H (0-400) ng/mL Sodium 140 (136-145) mmol/L Potassium 3.6 (3.5-5.1) mmol/L Chloride 107 (98-107) mmol/L Carbon Dioxide 25.1 (21.0-32.0) mmol/L BUN 10 (7-18) mg/dL Creatinine 0.77 (0.51-1.17) mg/dL Est Cr Clr Drug Dosing 61.30 mL/min Estimated GFR (MDRD) > 60 mL/min Glucose 105 (74-106) mg/dL Calcium 8.8 (8.5-10.1) mg/dL Creatine Kinase 108 (26-308) U/L Creatine Kinase Index 2.1 (0.0-2.5) % CK-MB (CK-2) 2.30 (0.00-3.60) ng/mL Troponin I 0.003 (0.000-0.056) ng/mL NT-Pro-B Natriuret Pep 1243 H (0-125) pg/mL Med Orders - Current: Current Medications Acetaminophen (Tylenol) 650 mg PO Q4H PRN PRN Reason: Pain Cyanocobalamin (Vitamin B12) 1,000 mcg PO DAILY [facility] Last Admin: 04/21/18 08:17 Dose: 1,000 mcg Enoxaparin Sodium (Lovenox) 30 mg SUBCUT Q24H [facility] Last Admin: 04/20/18 22:49 Dose: 30 mg Finasteride (Proscar) 5 mg PO DAILY [facility] Last Admin: 04/21/18 08:17 Dose: 5 mg Fish Oil (Fish Oil) 1 gm PO DAILY [facility] Last Admin: 04/21/18 08:17 Dose: 1 gm Levothyroxine Sodium (Synthroid) 88 mcg PO ACBREAKFAST [facility] Last Admin: 04/21/18 08:16 Dose: 88 mcg Metoprolol Tartrate (Lopressor) 12.5 mg PO BEDTIME [facility] Last Admin: 04/20/18 20:22 Dose: 12.5 mg Omeprazole (Omeprazole) 20 mg PO DAILY [facility] Last Admin: 04/21/18 08:17 Dose: 20 mg Polyethylene Glycol (Miralax) 17 gm PO Q48H [facility] Last Admin: 04/21/18 13:04 Dose: 17 gm Sodium Chloride (Saline Flush) 10 ml FLUSH ASDIRECTED PRN PRN Reason: Keep Vein Open Last Admin: 04/21/18 08:26 Dose: 10 ml Sodium Chloride (Saline Flush) 10 ml FLUSH Q12HR PRN PRN Reason: Keep Vein Open Temazepam (Restoril) 15 mg PO BEDTIME PRN PRN Reason: Insomnia Last Admin: 04/20/18 22:52 Dose: 15 mg Vit C/Vit E/Zinc/Copper/Lutein (Ocuvite Lutein) 1 each PO DAILY [facility] Last Admin: 04/21/18 08:17 Dose: 1 each Discontinued Medications Cyanocobalamin (Vitamin B12) 1,000 mcg IM ONETIME ONE Stop: 04/20/18 14:31 Last Admin: 04/20/18 15:24 Dose: 1,000 mcg Lactated Ringer's (Ringers, Lactated) 1,000 mls @ 80 mls/hr IV ASDIRECTED [facility] Last Admin: 04/20/18 13:20 Dose: 100 mls/hr Metoprolol Tartrate (Lopressor) 12.5 mg PO BID@08,20 [facility] Last Admin: 04/20/18 08:58 Dose: Not Given - Exam Quality Assessment: Supplemental Oxygen (2L), DVT Prophylaxis General: Alert, No Acute Distress HEENT: Pupils Equal, Pupils Reactive, EOMI, Mucous Membr. Moist/[place] Neck: Supple Lungs: Clear to Auscultation, Normal Respiratory Effort Cardiovascular: Regular Rate, Regular Rhythm GI/Abdominal Exam: Normal Bowel Sounds, Soft, Non-Tender, No Distention (Male) Exam: Deferred Back Exam: No: CVA Tenderness (L), CVA Tenderness (R), Muscle Spasm, Paraspinal Tenderness, Vertebral Tenderness Extremities: Non-Tender, No Pedal Edema, Normal Capillary Refill Peripheral Pulses: 2+: Radial (L), Radial (R) Skin: Warm, Dry, Intact Neurological: No New Focal Deficit Psy/Mental Status: Alert, Normal Affect, Normal Mood (pleasant) - Problem List & Annotations (1) Confusion SNOMED Code(s): 162016633 Code(s): R41.0 - DISORIENTATION, UNSPECIFIED Status: Chronic Priority: High Current Visit: Yes Annotation/Comment:: Note progressive confusion and problems with ADLs during the last several months with patient's and family considering placement at [facility] in [place]. Patient to be admitted to Swing Bed tomorrow for continued PT/OT. Case management helping family consider care home placement. Also additional visual hallucinations in the last 3 months. Vitamin B-12 level this morning was low normal. Initiate vitamin D 12 therapy in attempt to improve his confusion with recommended repeat evaluation one month. Note generalized progressed weakness during the last several months. Care management consultation in the morning. UA negative to this point with culture and sensitivity pending. IV fluids initiated on admission and are to be decreased somewhat secondary to his previous history of heart disease. Note some borderline low blood pressures initially noted by the homogenizer operator in the patient's home. PT and OT have been ordered. Note that the patient is still driving, however this should definitely be discontinued, if the patient is discharged to home. (2) TIA (transient ischemic attack) SNOMED Code(s): 252287443 Code(s): G45.9 - TRANSIENT CEREBRAL ISCHEMIC ATTACK, UNSPECIFIED Status: Acute Priority: High Current Visit: Yes Onset Date: 04/18/18 Qualifiers: Transient cerebral ischemia type: unspecified Qualified Code(s): G45.9 - Transient cerebral ischemic attack, unspecified Annotation/Comment:: Patient is at his normal neurological baseline with no repeat TIA suspected at this time. Note suspected possible brief TIA with dysarthria on 04/18 with further workup and hospital transfer as above. Stroke code was called in this facility in 04/18 with stroke code not warranted prior to admission secondary to negative workup yesterday. Note that patient is normally seen at the [facility], however they are requesting treatment in this facility. Neurological checks with vitals have been stable. Emotional support provided to all family members. (3) Elevated d-dimer SNOMED Code(s): 086715608 Code(s): R79.89 - OTHER SPECIFIED ABNORMAL FINDINGS OF BLOOD CHEMISTRY Status: Acute Priority: High Current Visit: Yes Onset Date: 04/18/18 Annotation/Comment:: Venous Doppler studies were negative. Consider of CTA of the chest depending on his clinical course. No clinical evidence of DVT or PE. Low-dose Lovenox to be continued for now. Troponin noted to be trending downward. (4) Hyperbilirubinemia SNOMED Code(s): 28550753 Code(s): E80.6 - OTHER DISORDERS OF BILIRUBIN METABOLISM Status: Acute Priority: Medium Current Visit: Yes Onset Date: 04/18/18 Annotation/ Comment:: Mild. Observe for now. 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 Direct and indirect bilirubin normal today. (5) Allergic rhinitis SNOMED Code(s): 55491438 Code(s): J30.9 - ALLERGIC RHINITIS, UNSPECIFIED Status: Chronic Priority : Medium Current Visit: Yes Annotation/Comment:: Stable by patient history (6) CHF (congestive heart failure) SNOMED Code(s): 12761698 Code(s): I50.9 - HEART FAILURE, UNSPECIFIED Status: Chronic Priority: Medium Current Visit: Yes Onset Date: 02/28/17 Annotation/Comment:: No chest pain or anginal type symptoms. (7) COPD (chronic obstructive pulmonary disease) SNOMED Code(s): 72933843 Code(s): J44.9 - CHRONIC OBSTRUCTIVE PULMONARY DISEASE, UNSPECIFIED Status : Chronic Priority: Medium Current Visit: Yes Qualifiers: COPD type: emphysema Emphysema type: panlobular Qualified Code(s): J43.1 - Panlobular emphysema Annotation/Comment:: Mild fever yesterday, however no leukocytosis or bronchitic type symptoms. Note some mild hypoxia in the emergency room with no direct evidence of sleep apnea. Consider sleep study at a later time. Chest x- ray shows no evidence of pneumonia today. Consider antibiotic therapy depending on his clinical course. (8) Coronary arteriosclerosis, CAD SNOMED Code(s): 88195160 Code(s): I25.10 - ATHSCL HEART DISEASE OF [place] CORONARY ARTERY W/O ANG PCTRS Status: Chronic Priority: Medium Current Visit: Yes Annotation/ Comment:: As above. No chest pain or anginal complaints. EKG and blood work in the a.m. (9) Gastroesophageal reflux disease SNOMED Code(s): 577584019 Code(s): K21.9 - GASTRO-ESOPHAGEAL REFLUX DISEASE WITHOUT ESOPHAGITIS Status: Chronic Priority: Medium Current Visit: Yes Annotation/Comment:: No abdominal complaints at this time. Stable borderline anemia. (10) Hyperlipidemia SNOMED Code(s): 48349081 Code(s): E78.5 - HYPERLIPIDEMIA, UNSPECIFIED Status: Chronic Priority: Medium Current Visit: Yes Qualifiers: Hyperlipidemia type: unspecified Qualified Code(s): E78.5 - Hyperlipidemia , unspecified Annotation/Comment:: Under therapy (11) Hypertension SNOMED Code(s): 89282508 Code(s): I10 - ESSENTIAL (PRIMARY) HYPERTENSION Status: Chronic Priority : Medium Current Visit: Yes Qualifiers: Hypertension type: essential hypertension Qualified Code(s): I10 - Essential (primary) hypertension Annotation/Comment:: Blood pressures were stable in the emergency room and during this hospitalization. (12) Hyperglycemia SNOMED Code(s): 82265977 Code(s): R73.9 - HYPERGLYCEMIA, UNSPECIFIED Status: Acute Priority: Medium Current Visit: No Onset Date: ~02/28/17 Annotation/Comment:: Glycosylated hemoglobin normal this morning. (13) Hypothyroidism SNOMED Code(s): 80610495 Code(s): E03.9 - HYPOTHYROIDISM, UNSPECIFIED Status: Chronic Priority: Medium Current Visit: No Annotation/Comment:: TSH normal on 04/18/18. 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 (15) Thrombocytopenia SNOMED Code(s): 115573232 Code(s): D69.6 - THROMBOCYTOPENIA, UNSPECIFIED Status: Chronic Priority: Medium Current Visit: No Onset Date: 02/28/17 Annotation/Comment:: Mild thrombocytopeniastable. Observe for now - Problem List Review Problem List Initiated/Reviewed/Updated: Yes - My Orders Last 24 Hours: My Active Orders 04/21/18 11:51 Patient Status Discharge Transfer [TRANSFER] Routine - Assessment Assessment:: As above - Plan Plan:: As above. Extensive precautions were given to the patient and his family, who are in agreement with the treatment plan. Anticipate 1 additional inpatient day with subsequent admission to Swing Bed to continue working with PT/OT to help improve generalized weakness. Recommend future long-term care as above. Case management currently working with family on placement.
[2018-04-21] MEDS: Metoprolol Tartrate 25 MG Tab PO SCH (21:43)
[2018-04-21] MEDS: Enoxaparin 30 MG/0.3 ML Syringe SUBCUT SCH (23:10)
[2018-04-21] MEDS: Temazepam 15 MG Cap PO PRN (23:11)
[2018-04-22 06:34] VITALS: BP 151/71
[2018-04-22] MEDS: Fish Oil/Omega-3 Fatty Acids 1 Gm Cap PO SCH (09:09)
[2018-04-22] MEDS: Levothyroxine 88 MCG Tab PO SCH (09:09)
[2018-04-22] MEDS: Finasteride 5 MG Tab PO SCH (09:10)
[2018-04-22] MEDS: Cyanocobalamin (Vitamin B12) 1,000 MCG Tab PO SCH (09:10)
[2018-04-22] MEDS: Lutein/Minerals/Vitamin C/Vitamin E Acetate Cap PO SCH (09:10)
[2018-04-22] MEDS: Omeprazole 20 MG Cap.CR PO SCH (09:10)
--- NOTE | 2018-04-22 13:31 | PCM.DCSUM1 ---
Discharge Summary - Hospital Course Brief History: Patient admitted for increased confusion/weakness, possible TIAs Diagnosis: Stroke: No - Discharge Data Discharge Date: 04/22/18 Discharge Disposition: DC/Tfer W/I Hosp To [place] [id number] Condition: Good - Discharge Diagnosis/Problem(s) (1) Confusion SNOMED Code(s): 752998977 ICD Code: R41.0 - DISORIENTATION, UNSPECIFIED Status: Chronic Priority: High Current Visit: Yes Problem Details: Note progressive confusion and problems with ADLs during the last several months with patient's and family considering placement at [facility]. Patient to be admitted to [facility] for continued PT/OT. Case management [place] [facility]. Also additional visual hallucinations in the last 3 months. Vitamin B-12 level this was low normal. Initiate vitamin D 12 therapy in attempt to improve his confusion with recommended repeat evaluation one month. Note generalized progressed weakness during the last several months. Care management consultation in the morning. UA negative however culture did grow E.Coli. Note some borderline low blood pressures initially noted by the application technician in the patient's home. Note that the patient is still driving, however this should definitely be discontinued, if the patient is discharged to home. (2) TIA (transient ischemic attack) SNOMED Code(s): 439530072 ICD Code: G45.9 - TRANSIENT CEREBRAL ISCHEMIC ATTACK, UNSPECIFIED Status: Acute Priority: High Current Visit: Yes Onset Date: 04/18/18 Problem Details: Patient is at his normal neurological baseline with no repeat TIA suspected at this time. Note suspected possible brief TIA with dysarthria on with further workup and hospital transfer as above. Stroke code was called in this facility in 04/18 with stroke code not warranted prior to admission secondary to negative workup yesterday. Note that patient is normally seen at the [facility] in [place], however they are requesting treatment in this facility. Neurological checks with vitals have been stable. Emotional support provided to all family members. Qualifiers: Transient cerebral ischemia type: unspecified Qualified Code(s): G45.9 - Transient cerebral ischemic attack, unspecified (3) Elevated d-dimer SNOMED Code(s): 843940876 ICD Code: R79.89 - OTHER SPECIFIED ABNORMAL FINDINGS OF BLOOD CHEMISTRY Status: Acute Priority: High Current Visit: Yes Onset Date: 04/18/18 Problem Details: Venous Doppler studies were negative. Consider of CTA of the chest depending on his clinical course. No clinical evidence of DVT or PE. Low- dose Lovenox to be continued for now. Troponin noted to be trending downward. (4) Hyperbilirubinemia SNOMED Code(s): 14437658 ICD Code: E80.6 - OTHER DISORDERS OF BILIRUBIN METABOLISM Status: Acute Priority: Medium Current Visit: Yes Onset Date: 04/18/18 Problem Details: Mild. Observe for now. 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 Direct and indirect bilirubin normal today. (5) Allergic rhinitis SNOMED Code(s): 11911772 ICD Code: J30.9 - ALLERGIC RHINITIS, UNSPECIFIED Status: Chronic Priority : Medium Current Visit: Yes Problem Details: Stable by patient history (6) CHF (congestive heart failure) SNOMED Code(s): 07920783 ICD Code: I50.9 - HEART FAILURE, UNSPECIFIED Status: Chronic Priority: Medium Current Visit: Yes Onset Date: 02/28/17 Problem Details: No chest pain or anginal type symptoms. (7) COPD (chronic obstructive pulmonary disease) SNOMED Code(s): 69027388 ICD Code: J44.9 - CHRONIC OBSTRUCTIVE PULMONARY DISEASE, UNSPECIFIED Status : Chronic Priority: Medium Current Visit: Yes Problem Details: Mild fever noted several days ago, however no leukocytosis or bronchitic type symptoms. Note some mild hypoxia in the emergency room with no direct evidence of sleep apnea. Consider sleep study at a later time. Chest x-ray shows no evidence of pneumonia today. Qualifiers: COPD type: emphysema Emphysema type: panlobular Qualified Code(s): J43.1 - Panlobular emphysema (8) Coronary arteriosclerosis, CAD SNOMED Code(s): 29819511 ICD Code: I25.10 - ATHSCL HEART DISEASE OF [place] CORONARY ARTERY W/O ANG PCTRS Status: Chronic Priority: Medium Current Visit: Yes Problem Details: As above. No chest pain or anginal complaints. EKG and blood work in the a.m. (9) Gastroesophageal reflux disease SNOMED Code(s): 312047578 ICD Code: K21.9 - GASTRO-ESOPHAGEAL REFLUX DISEASE WITHOUT ESOPHAGITIS Status: Chronic Priority: Medium Current Visit: Yes Problem Details: No abdominal complaints at this time. Stable borderline anemia. (10) Hyperlipidemia SNOMED Code(s): 52405625 ICD Code: E78.5 - HYPERLIPIDEMIA, UNSPECIFIED Status: Chronic Priority: Medium Current Visit: Yes Problem Details: Under therapy Qualifiers: Hyperlipidemia type: unspecified Qualified Code(s): E78.5 - Hyperlipidemia , unspecified (11) Hypertension SNOMED Code(s): 38638906 ICD Code: I10 - ESSENTIAL (PRIMARY) HYPERTENSION Status: Chronic Priority : Medium Current Visit: Yes Problem Details: Blood pressures were stable in the emergency room and during this hospitalization. Qualifiers: Hypertension type: essential hypertension Qualified Code(s): I10 - Essential (primary) hypertension (12) Hyperglycemia SNOMED Code(s): 86036036 ICD Code: R73.9 - HYPERGLYCEMIA, UNSPECIFIED Status: Acute Priority: Medium Current Visit: No Onset Date: ~02/28/17 Problem Details: Glycosylated hemoglobin normal this morning. (13) Hypothyroidism SNOMED Code(s): 76324916 ICD Code: E03.9 - HYPOTHYROIDISM, UNSPECIFIED Status: Chronic Priority: Medium Current Visit: No Problem Details: TSH normal on 04/18/18. 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 (15) Thrombocytopenia SNOMED Code(s): 927418833 ICD Code: D69.6 - THROMBOCYTOPENIA, UNSPECIFIED Status: Chronic Priority : Medium Current Visit: No Onset Date: 02/28/17 Problem Details: Mild thrombocytopeniastable. Observe for now (16) Positive urine culture SNOMED Code(s): 638061936 ICD Code: R82.79 - OTHER ABNORMAL FINDINGS ON MICROBIOLOG EXAMINATION OF URINE Status: Acute Priority: Medium Current Visit: Yes Problem Details : UC positive for E.Coli. UA specimen had appeared normal. Will place patient on Macrobid as he is allergic to Sulfa. Will avoid Fluoroquinolones for now given their potential side effects. - Patient Summary/Data Consults: Consultations 04/19/18 23:20 Consult to Case Management [CONS] Routine PT Evaluation and Treatment [CONS] Routine 04/19/18 23:21 OT Evaluation and Treatment [CONS] Routine Hospital Course: Patient observed for changes while inpatient. Weak. Evaluated by PT/OT. No obvious signs of acute stroke. [place] to have general progression of confusion and weakness that have been present chcf. Recommended to family that placement in senior living facility would be beneficial. They are considering the DC home in [place]. Patient has refused any suggestion of moving there in past. PT/OT feel that patient could benefit from additional therapy with them. He will be transferred to [facility] to continue working with therapy. Case management will continue working with family on formulating an appropriate plan for chcf care. - Discharge Plan Home Medications: Home Meds Acetaminophen [Tylenol] 325 mg PO Q4HR PRN 05/11/14 [History] Metoprolol Tartrate 12.5 mg PO BID@,20 05/11/14 [History] Aspirin [Bret Chewable Aspirin] 81 mg PO BEDTIME 12/16/14 [History] Polyethylene Glycol 3350 [MiraLAX] 17 gm PO ASDIRECTED 09/01/17 [History] Famotidine [Pepcid] 20 mg PO BEDTIME 04/18/18 [History] Finasteride [Proscar] 5 mg PO DAILY 04/18/18 [History] Fish Oil/[place]-3 Fatty Acids [Fish Oil 1,000 MG] 1 cap PO DAILY 04/18/18 [ History] Levothyroxine [Synthroid] 88 mcg PO ACBREAKFAST 04/18/18 [History] Vit A/Vit C/Vit E/Zinc/Copper [Preservision] 1 tab PO DAILY 04/18/18 [History] Patient Handouts: Enoxaparin injection Forms: ED Department Discharge Referrals: Jose Estrada MD [Primary Care Provider] - - General Info Date of Service: 04/22/18 Admission Dx/Problem (Free Text: 1. Recurrent TIA 2. Confusion affecting ADLs 3. Generalized weakness Subjective Update: Patient says that he feels well. No acute complaints. No observed changes per staff members. Functional Status: Reports: Pain Controlled, Tolerating Diet, Ambulating (with assistance/walker), Urinating. Denies: New Symptoms - Review of Systems General: Reports: Weakness. Denies: Fever, Malaise, Chills, Night Sweats HEENT: Reports: No Symptoms (no acute changes) Pulmonary: Reports: No Symptoms (no acute changes) Cardiovascular: Reports: No Symptoms (no acute changes). Denies: Chest Pain Gastrointestinal: Reports: No Symptoms (no acute changes) Genitourinary: Reports: No Symptoms Musculoskeletal: Reports: No Symptoms (no acute changes) Skin: Reports: Other (no acute changes) Neurological: Reports: Confusion, Difficulty Walking, Weakness, Other (no acute changes) Psychiatric: Reports: Confusion, Hallucinations, Other (no acute changes) - Patient Data Vitals - Most Recent: Last Vital Signs Temp 36.7 C 04/22/18 06:00 Pulse 63 04/22/18 06:00 Resp 16 04/22/18 06:00 BP 151/71 H 04/22/18 06:00 Pulse Ox 94 L 04/22/18 06:00 Weight - Most Recent: 78.925 kg I&O - Last 24 hours: Intake & Output 04/21/18 04/22/18 04/22/18 22:59 06:59 14:59 Intake Total 360 60 Output Total 250 Balance 360 -190 EH Results - Last 24 hrs: Microbiology 04/19/18 23:00 Urine Culture - Final Urine, Clean Catch Escherichia Coli. Med Orders - Current: Current Medications Acetaminophen (Tylenol) 650 mg PO Q4H PRN PRN Reason: Pain Cyanocobalamin (Vitamin B12) 1,000 mcg PO DAILY [facility] Last Admin: 04/22/18 09:10 Dose: 1,000 mcg Enoxaparin Sodium (Lovenox) 30 mg SUBCUT Q24H [facility] Last Admin: 04/21/18 23:10 Dose: 30 mg Finasteride (Proscar) 5 mg PO DAILY [facility] Last Admin: 04/22/18 09:10 Dose: 5 mg Fish Oil (Fish Oil) 1 gm PO DAILY [facility] Last Admin: 04/22/18 09:09 Dose: 1 gm Levothyroxine Sodium (Synthroid) 88 mcg PO ACBREAKFAST [facility] Last Admin: 04/22/18 09:09 Dose: 88 mcg Metoprolol Tartrate (Lopressor) 12.5 mg PO BEDTIME [facility] Last Admin: 04/21/18 21:43 Dose: Not Given Omeprazole (Omeprazole) 20 mg PO DAILY [facility] Last Admin: 04/22/18 09:10 Dose: 20 mg Polyethylene Glycol (Miralax) 17 gm PO Q48H [facility] Last Admin: 04/21/18 13:04 Dose: 17 gm Sodium Chloride (Saline Flush) 10 ml FLUSH ASDIRECTED PRN PRN Reason: Keep Vein Open Last Admin: 04/21/18 08:26 Dose: 10 ml Sodium Chloride (Saline Flush) 10 ml FLUSH Q12HR PRN PRN Reason: Keep Vein Open Temazepam (Restoril) 15 mg PO BEDTIME PRN PRN Reason: Insomnia Last Admin: 04/21/18 23:11 Dose: 15 mg Vit C/Vit E/Zinc/Copper/Lutein (Ocuvite Lutein) 1 each PO DAILY [facility] Last Admin: 04/22/18 09:10 Dose: 1 each Discontinued Medications Cyanocobalamin (Vitamin B12) 1,000 mcg IM ONETIME ONE Stop: 04/20/18 14:31 Last Admin: 04/20/18 15:24 Dose: 1,000 mcg Lactated Ringer's (Ringers, Lactated) 1,000 mls @ 80 mls/hr IV ASDIRECTED [facility] Last Admin: 04/20/18 13:20 Dose: 100 mls/hr Metoprolol Tartrate (Lopressor) 12.5 mg PO BID@08,20 [facility] Last Admin: 04/20/18 08:58 Dose: Not Given - Exam Quality Assessment: Reports: DVT Prophylaxis General: Reports: Alert, Cooperative, No Acute Distress HEENT: Reports: Pupils Equal, Pupils Reactive, Mucous Membr. Moist/[place] Neck: Reports: Supple Lungs: Reports: Clear to Auscultation, Normal Respiratory Effort Cardiovascular: Reports: Regular Rate, Regular Rhythm GI/Abdominal Exam: Normal Bowel Sounds, Soft, Non-Tender, No Distention (Male) Exam: Deferred Rectal (Males) Exam: Deferred Back Exam: Denies: CVA Tenderness (L), CVA Tenderness (R) Extremities: Non-Tender, No Pedal Edema, Normal Capillary Refill Skin: Reports: Warm, Dry, Intact Neurological: Reports: No New Focal Deficit Psy/Mental Status: Reports: Alert, Normal Affect, Normal Mood
[2018-04-22] MEDS ORDERED: Nitrofurantoin Monohydrate/Macrocrystalline 100 MG Cap PO SCH (20:00)
== END 2018-04-22 14:41 | disposition swing bed (61) | DRG 69 ==
LOC: LL.ED 21:55 → LL.MS 22:45
PROVIDERS: ADMIT Family Medicine; ATTEND Family Medicine
DX: G45.9 Transient cerebral ischemic attack, unspecified (principal); E80.6 Other disorders of bilirubin metabolism; J30.9 Allergic rhinitis, unspecified; I50.9 Heart failure, unspecified; J44.9 Chronic obstructive pulmonary disease, unspecified; R09.02 Hypoxemia; I25.10 Atherosclerotic heart disease of native coronary artery without angina pectoris; K21.9 Gastro-esophageal reflux disease without esophagitis; E78.5 Hyperlipidemia, unspecified; I11.0 Hypertensive heart disease with heart failure; R73.9 Hyperglycemia, unspecified; E03.9 Hypothyroidism, unspecified; F41.8 Other specified anxiety disorders; D69.6 Thrombocytopenia, unspecified; R47.1 Dysarthria and anarthria; F09 Unspecified mental disorder due to known physiological condition; N40.1 Benign prostatic hyperplasia with lower urinary tract symptoms; R33.8 Other retention of urine; Z87.891 Personal history of nicotine dependence; Z79.899 Other long term (current) drug therapy; Z79.82 Long term (current) use of aspirin; I25.2 Old myocardial infarction; Z95.5 Presence of coronary angioplasty implant and graft
CPT/HCPCS: 36415; 71046; 80048; 80053; 81001; 82247; 82248; 82550; 82553; 82607; 83036; 83605; 83735; 83880; 84484; 84550; 85025; 85379; 85610; 85730; 87086; 87088; 87186; 93005; 93970; 97110-GO; 97116-GP; 97161-GP; 97165-GO; 97530-GO; 97530-GP; 99285; A9270-GY; J1650; J3420; J7050; J7120

== ENCOUNTER 2018-04-22 11:52 | Inpatient (IN) | payer OTHER, MEDICARE ==
[2018-04-22] MEDS ORDERED: Acetaminophen 325 MG Tab PO PRN (17:39)
[2018-04-22] MEDS ORDERED: Temazepam 15 MG Cap PO PRN (17:40)
[2018-04-22] MEDS ORDERED: Polyethylene Glycol 3350 Powder 17 GM Packet PO SCH (17:45)
[2018-04-22] MEDS: Polyethylene Glycol 3350 Powder 17 GM Packet PO SCH (20:13)
[2018-04-22] MEDS: Enoxaparin 30 MG/0.3 ML Syringe SUBCUT SCH (20:13)
[2018-04-22] MEDS: Nitrofurantoin Monohydrate/Macrocrystalline 100 MG Cap PO SCH (20:14)
[2018-04-22] MEDS: Metoprolol Tartrate 25 MG Tab PO SCH (20:19)
[2018-04-23] MEDS: Finasteride 5 MG Tab PO SCH (08:46)
[2018-04-23] MEDS: Levothyroxine 88 MCG Tab PO SCH (08:47)
[2018-04-23] MEDS: Fish Oil/Omega-3 Fatty Acids 1 Gm Cap PO SCH (08:47)
[2018-04-23] MEDS: Cyanocobalamin (Vitamin B12) 1,000 MCG Tab PO SCH (08:47)
[2018-04-23] MEDS: Lutein/Minerals/Vitamin C/Vitamin E Acetate Cap PO SCH (08:47)
[2018-04-23] MEDS: Polyethylene Glycol 3350 Powder 17 GM Packet PO SCH (08:47)
[2018-04-23] MEDS: Omeprazole 20 MG Cap.CR PO SCH (08:47)
[2018-04-23] MEDS: Enoxaparin 30 MG/0.3 ML Syringe SUBCUT SCH (20:01)
[2018-04-23] MEDS: Metoprolol Tartrate 25 MG Tab PO SCH (20:02)
[2018-04-23] MEDS: Nitrofurantoin Monohydrate/Macrocrystalline 100 MG Cap PO SCH (20:02)
[2018-04-24] MEDS: Omeprazole 20 MG Cap.CR PO SCH (07:11)
[2018-04-24] MEDS: Polyethylene Glycol 3350 Powder 17 GM Packet PO SCH (07:11)
[2018-04-24] MEDS: Fish Oil/Omega-3 Fatty Acids 1 Gm Cap PO SCH (07:11)
[2018-04-24] MEDS: Cyanocobalamin (Vitamin B12) 1,000 MCG Tab PO SCH (07:11)
[2018-04-24] MEDS: Lutein/Minerals/Vitamin C/Vitamin E Acetate Cap PO SCH (07:11)
[2018-04-24] MEDS: Finasteride 5 MG Tab PO SCH (07:11)
[2018-04-24] MEDS: Levothyroxine 88 MCG Tab PO SCH (07:11)
[2018-04-24] MEDS: Tamsulosin 0.4 MG Cap.ER PO SCH (07:53)
[2018-04-24] MEDS: Nitrofurantoin Monohydrate/Macrocrystalline 100 MG Cap PO SCH (21:01)
[2018-04-24] MEDS: Metoprolol Tartrate 25 MG Tab PO SCH (21:01)
[2018-04-24] MEDS: Enoxaparin 30 MG/0.3 ML Syringe SUBCUT SCH (21:02)
[2018-04-25] MEDS: Finasteride 5 MG Tab PO SCH (07:47)
[2018-04-25] MEDS: Fish Oil/Omega-3 Fatty Acids 1 Gm Cap PO SCH (07:47)
[2018-04-25] MEDS: Lutein/Minerals/Vitamin C/Vitamin E Acetate Cap PO SCH (07:47)
[2018-04-25] MEDS: Cyanocobalamin (Vitamin B12) 1,000 MCG Tab PO SCH (07:48)
[2018-04-25] MEDS: Levothyroxine 88 MCG Tab PO SCH (07:48)
[2018-04-25] MEDS: Polyethylene Glycol 3350 Powder 17 GM Packet PO SCH (07:48)
[2018-04-25] MEDS: Tamsulosin 0.4 MG Cap.ER PO SCH (07:48)
[2018-04-25] MEDS: Omeprazole 20 MG Cap.CR PO SCH (07:49)
[2018-04-25] MEDS: Nitrofurantoin Monohydrate/Macrocrystalline 100 MG Cap PO SCH (20:40)
[2018-04-25] MEDS: Metoprolol Tartrate 25 MG Tab PO SCH (20:40)
[2018-04-25] MEDS: Sodium Chloride 0.9% 10 ML Syringe FLUSH PRN (20:40)
[2018-04-25] MEDS: Enoxaparin 30 MG/0.3 ML Syringe SUBCUT SCH (20:41)
[2018-04-26] MEDS: Polyethylene Glycol 3350 Powder 17 GM Packet PO SCH (08:08)
[2018-04-26] MEDS: Finasteride 5 MG Tab PO SCH (08:10)
[2018-04-26] MEDS: Fish Oil/Omega-3 Fatty Acids 1 Gm Cap PO SCH (08:10)
[2018-04-26] MEDS: Levothyroxine 88 MCG Tab PO SCH (08:10)
[2018-04-26] MEDS: Tamsulosin 0.4 MG Cap.ER PO SCH (08:10)
[2018-04-26] MEDS: Cyanocobalamin (Vitamin B12) 1,000 MCG Tab PO SCH (08:10)
[2018-04-26] MEDS: Omeprazole 20 MG Cap.CR PO SCH (08:11)
[2018-04-26] MEDS: Lutein/Minerals/Vitamin C/Vitamin E Acetate Cap PO SCH (08:11)
[2018-04-26] MEDS: Sodium Chloride 0.9% 10 ML Syringe FLUSH PRN (08:11)
[2018-04-26] MEDS: Nitrofurantoin Monohydrate/Macrocrystalline 100 MG Cap PO SCH (20:10)
[2018-04-26] MEDS: Metoprolol Tartrate 25 MG Tab PO SCH (20:10)
[2018-04-27] MEDS: Levothyroxine 88 MCG Tab PO SCH (08:03)
[2018-04-27] MEDS: Finasteride 5 MG Tab PO SCH (08:04)
[2018-04-27] MEDS: Lutein/Minerals/Vitamin C/Vitamin E Acetate Cap PO SCH (08:04)
[2018-04-27] MEDS: Fish Oil/Omega-3 Fatty Acids 1 Gm Cap PO SCH (08:04)
[2018-04-27] MEDS: Tamsulosin 0.4 MG Cap.ER PO SCH (08:05)
[2018-04-27] MEDS: Cyanocobalamin (Vitamin B12) 1,000 MCG Tab PO SCH (08:05)
[2018-04-27] MEDS: Omeprazole 20 MG Cap.CR PO SCH (08:05)
[2018-04-27] MEDS: Polyethylene Glycol 3350 Powder 17 GM Packet PO SCH (08:05)
[2018-04-27] MEDS: Nitrofurantoin Monohydrate/Macrocrystalline 100 MG Cap PO SCH (19:19)
[2018-04-27] MEDS: Metoprolol Tartrate 25 MG Tab PO SCH (19:25)
[2018-04-28] MEDS: Fish Oil/Omega-3 Fatty Acids 1 Gm Cap PO SCH (07:29)
[2018-04-28] MEDS: Lutein/Minerals/Vitamin C/Vitamin E Acetate Cap PO SCH (07:29)
[2018-04-28] MEDS: Tamsulosin 0.4 MG Cap.ER PO SCH (07:29)
[2018-04-28] MEDS: Finasteride 5 MG Tab PO SCH (07:30)
[2018-04-28] MEDS: Levothyroxine 88 MCG Tab PO SCH (07:30)
[2018-04-28] MEDS: Polyethylene Glycol 3350 Powder 17 GM Packet PO SCH (07:31)
[2018-04-28] MEDS: Cyanocobalamin (Vitamin B12) 1,000 MCG Tab PO SCH (07:31)
[2018-04-28] MEDS: Omeprazole 20 MG Cap.CR PO SCH (07:31)
[2018-04-28 08:24] LABS: CHLORIDE,CL 105 mmol/L (98-107); SODIUM,NA 139 mmol/L (136-145)
--- NOTE | 2018-04-28 14:40 | PCM.PN ---
- General Info Date of Service: 04/28/18 Admission Dx/Problem (Free Text): 1. Recurrent TIA 2. Generalized weakness and confusion affecting ADLs Subjective Update: Patient is a relatively poor historian secondary to his baseline confusion Functional Status: Reports: Pain Controlled, Tolerating Diet, Ambulating (With difficulty requiring assist with physical therapy and occupational therapy in effect) Pain Score: 0 - Review of Systems General: Reports: Weakness (Stable). Denies: Fever, Fatigue, Malaise, Chills, Night Sweats, Appetite (Adequate) HEENT: Reports: Glasses. Denies: Eye Pain, Headaches, Sinus Congestion, Sore Throat, Visual Changes Pulmonary: Reports: No Symptoms. Denies: Shortness of Breath, Pleuritic Chest Pain, Cough, Sputum, Wheezing Cardiovascular: Reports: No Symptoms. Denies: Chest Pain, Palpitations, Dyspnea on Exertion, Orthopnea, PND, Edema, Lightheadedness Gastrointestinal: Reports: Other (Non-Specific discomfort secondary to his inguinal hernia). Denies: Abdominal Pain, Constipation, Decreased Appetite, Diarrhea, Difficulty Swallowing, Hematochezia, Melena, Nausea, Vomiting Genitourinary: Reports: Retention. Denies: Dysuria, Frequency, Burning, Pain, Urgency, Hematuria (Although microhematuria by urological evaluation at the [facility] in [place] yesterday), Other Musculoskeletal: Reports: No Symptoms. Denies: Neck Pain, Shoulder Pain, Back Pain, Leg Pain Skin: Denies: Diaphoresis, Bruising Neurological: Reports: Confusion, Difficulty Walking, Weakness, Gait Disturbance (Stable). Denies: Dizziness, Headache, Seizure, Syncope, Trouble Speaking, Change in Speech Psychiatric: Reports: Confusion. Denies: Depression, Anxiety, Agitation, Hallucinations - Patient Data Vitals - Most Recent: Last Vital Signs Temp 36.5 C 04/28/18 07:27 Pulse 70 04/27/18 19:28 Resp 20 04/28/18 07:27 BP 135/65 04/28/18 07:27 Pulse Ox 95 04/28/18 07:27 Vital Signs - 24 hr 04/27/18 04/27/18 04/28/18 19:25 19:28 07:27 Temperature [ 37.0 C 36.5 C Oral] Pulse, 69 Peripheral Pulse, 70 Peripheral [ Left Pulse Oximetry] Respiratory 16 20 Rate Blood Pressure 118/54 L Blood Pressure 118/54 L 135/65 [Right Upper Arm] O2 Sat by Pulse 100 95 Oximetry Weight - Most Recent: 78.925 kg I&O - Last 24 Hours: Intake & Output 04/27/18 04/28/18 04/28/18 22:59 06:59 14:59 Intake Total 110 1400 Balance 110 1400 Imaging Impressions - Last 24 Hours: None in this facility with apparent CT scans conducted in the [facility] [place] yesterday during urology and oncology consultations Lab Results Last 24 Hours: Laboratory Results - last 24 hr 04/28/18 04/28/18 Range/Units 07:25 07:25 WBC 4.9 (4.0-10.2) K/uL RBC 4.03 L (4.33-5.41) M/uL Hgb 12.5 L (13.1-16.8) g/dL Hct 35.8 L (39.0-49.0) % MCV 88.8 (84.0-98.0) fL MCH 31.0 (28.2-33.3) pg MCHC 34.9 (31.7-36.0) g/dL RDW 13.3 (11.2-14.1) % Plt Count 131 L (150-350) K/uL Neut % (Auto) 60.0 (45.0-80.0) % Lymph % (Auto) 26.7 (10.0-50.0) % [place] % (Auto) 8.8 (2.0-14.0) % Eos % (Auto) 4.1 (0.0-5.0) % Baso % (Auto) 0.4 (0.0-2.0) % Neut # (Auto) 2.95 (1.40-7.00) K/uL Lymph # (Auto) 1.31 (0.50-3.50) K/uL [place] # (Auto) 0.43 (0.00-1.00) K/uL Eos # (Auto) 0.20 (0.00-0.50) K/uL Baso # (Auto) 0.02 (0.00-0.20) K/uL Sodium 139 (136-145) mmol/L Potassium 4.1 (3.5-5.1) mmol/L Chloride 105 (98-107) mmol/L Carbon Dioxide 26.1 (21.0-32.0) mmol/L BUN 15 (7-18) mg/dL Creatinine 0.84 (0.51-1.17) mg/dL Est Cr Clr Drug Dosing 55.91 mL/min Estimated GFR (MDRD) > 60 mL/min Glucose 99 (74-106) mg/dL Calcium 9.2 (8.5-10.1) mg/dL Total Bilirubin 0.6 (0.2-1.0) mg/dL AST 20 (15-37) U/L ALT 38 (12-78) U/L Alkaline Phosphatase 61 (46-116) IU/L Creatine Kinase 39 (26-308) U/L Creatine Kinase Index 2.8 H (0.0-2.5) % CK-MB (CK-2) 1.10 (0.00-3.60) ng/mL Troponin I 0.000 (0.000-0.056) ng/mL NT-Pro-B Natriuret Pep 981 H (0-125) pg/mL Total Protein 6.3 L (6.4-8.2) g/dL Albumin 3.4 (3.4-5.0) g/dL Dionicio Results Last 24 Hours: Microbiology 04/25/18 11:15 Helicobacter pylori Antigen - Final Stool / Feces Med Orders - Current: Current Medications Acetaminophen (Tylenol) 650 mg PO Q4HR PRN PRN Reason: Pain Cyanocobalamin (Vitamin B12) 1,000 mcg PO DAILY [facility] Last Admin: 04/28/18 07:31 Dose: 1,000 mcg Finasteride (Proscar) 5 mg PO DAILY [facility] Last Admin: 04/28/18 07:30 Dose: 5 mg Fish Oil (Fish Oil) 1 gm PO DAILY [facility] Last Admin: 04/28/18 07:29 Dose: 1 gm Levothyroxine Sodium (Synthroid) 88 mcg PO ACBREAKFAST [facility] Last Admin: 04/28/18 07:30 Dose: 88 mcg Metoprolol Tartrate (Lopressor) 12.5 mg PO BEDTIME [facility] Last Admin: 04/27/18 19:25 Dose: 12.5 mg Nitrofurantoin Macrocrystals (Macrobid) 100 mg PO BEDTIME [facility] Stop: 05/01/18 20:00 Last Admin: 04/27/18 19:19 Dose: 100 mg Omeprazole (Omeprazole) 20 mg PO DAILY [facility] Last Admin: 04/28/18 07:31 Dose: 20 mg Polyethylene Glycol (Miralax) 17 gm PO DAILY [facility] Last Admin: 04/28/18 07:31 Dose: 17 gm Sodium Chloride (Saline Flush) 10 ml FLUSH ASDIRECTED PRN PRN Reason: Keep Vein Open Last Admin: 04/26/18 08:11 Dose: 10 ml Tamsulosin HCl (Flomax) 0.4 mg PO DAILY@0700 [facility] Last Admin: 04/28/18 07:29 Dose: 0.4 mg Temazepam (Restoril) 15 mg PO BEDTIME PRN PRN Reason: Insomnia Vit C/Vit E/Zinc/Copper/Lutein (Ocuvite Lutein) 1 each PO DAILY [facility] Last Admin: 04/28/18 07:29 Dose: 1 each Discontinued Medications Enoxaparin Sodium (Lovenox) 30 mg SUBCUT BEDTIME [facility] Last Admin: 04/25/18 20:41 Dose: 30 mg Polyethylene Glycol (Miralax) 17 gm PO ASDIRECTED [facility] - Exam Quality Assessment: DVT Prophylaxis. No: Supplemental Oxygen, Central Line/PICC , Urine Catheter, Skin Breakdown, Restraints General: Alert, Cooperative, No Acute Distress. 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 Moist/Ali Molina, Scleral Icterus, Other (Patient wearing glasses. 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 No: Lymphadenopathy Lungs: Normal Respiratory Effort, Rales (Bilateral basilar rales). No: Rhonchi , Rub, Wheezing Cardiovascular: Regular Rate, Regular Rhythm, No Murmurs, Murmurs (Mild 1/6 JORGE A of the aortic valve). No: Gallops, Rubs GI/Abdominal Exam: Normal Bowel Sounds, Soft, Non-Tender, No Organomegaly, No Distention, No Abnormal Bruit, No Mass, Pelvis Stable, Hernia (Stable 4 centimeter in diameter right inguinal hernia). No: Guarding (Male) Exam: Deferred Back Exam: Normal Inspection, Full Range of Motion. No: CVA Tenderness (L), CVA Tenderness (R), Decreased Range of Motion, Muscle Spasm, Paraspinal Tenderness, Vertebral Tenderness Extremities: Normal Inspection, Normal Range of Motion, Non-Tender, No Pedal Edema, Normal Capillary Refill. No: Limited Range of Motion Peripheral Pulses: 2+: Radial (L), Radial (R) Skin: Warm, Dry, Intact. No: Ecchymosis Neurological: No New Focal Deficit, Other (Clinical orthostasis. Stable confusion as above) Psy/Mental Status: Alert, Normal Affect, Normal Mood. No: Agitated, Withdrawal Symptoms - Problem List & Annotations (1) TIA (transient ischemic attack) SNOMED Code(s): 208363562 Code(s): G45.9 - TRANSIENT CEREBRAL ISCHEMIC ATTACK, UNSPECIFIED Status: Acute Priority: High Current Visit: Yes Onset Date: 04/18/18 Qualifiers: Transient cerebral ischemia type: unspecified Qualified Code(s): G45.9 - Transient cerebral ischemic attack, unspecified Annotation/Comment:: Patient is at his normal neurological baseline with no repeat TIA suspected at this time. Note suspected possible brief TIA with dysarthria on 04/18 with further workup and hospital transfer to [place] on that day. Stroke code was called in this facility in 04/18 with stroke code not warranted prior to repeat admission into this facility in acute care on 04/19/18 secondary to negative workup in [place] on 04/18. Note that patient is normally seen at the [facility] in [place], however they requested treatment in this facility and did agree to further swing bed care. Arrangements are being made for permanent placement either at [facility] in [place] or [facility] in [place] with his son trying to obtain a POA. He is looking into my recommendations of having the patient and his move into the long term at the same time. Multiple family consultations since admission to swing bed and also today with multiple family members concerning this treatment plan, although difficulties making arrangements at this time. Continue PT and OT for now. Emotional support provided to all family members. (2) Nephrolithiasis SNOMED Code(s): 94086931 Code(s): N20.0 - CALCULUS OF KIDNEY Status: Chronic Priority: Medium Current Visit: Yes Onset Date: 04/28/18 Annotation/Comment:: Apparent significant nephrolithiasis and urolithiasis time of urology consultation at the [facility] in [place] yesterday with CT scan performed. Limited records obtained from the [facility] in [place] with CT scan results and more complete consultation reports to be obtained SHARI. Per his sons history a cystoscopy is scheduled for evaluation of his microhematuria in July at the [facility] in [place]. Urine tests in that facility yesterday was apparently negative for acute infection. No current colic or UTI symptoms. Avoid carbonated beverages but continue coffee for now per the patient's request. No current colic or other UTI symptoms. (3) Weakness SNOMED Code(s): 58316110 Code(s): R53.1 - WEAKNESS Status: Chronic Priority: High Current Visit : Yes Annotation/Comment:: Continue PT and OT as above with long term placement advisable secondary to problems with his ADLs. (4) CHF (congestive heart failure) SNOMED Code(s): 47885304 Code(s): I50.9 - HEART FAILURE, UNSPECIFIED Status: Chronic Priority: Medium Current Visit: Yes Onset Date: 02/28/17 Annotation/Comment:: No chest pain or anginal type symptoms. No clinical evidence of significant CHF despite persistent BNP elevation. Observe for now with no further change in medical therapy. (5) COPD (chronic obstructive pulmonary disease) SNOMED Code(s): 89460931 Code(s): J44.9 - CHRONIC OBSTRUCTIVE PULMONARY DISEASE, UNSPECIFIED Status : Chronic Priority: Medium Current Visit: Yes Qualifiers: COPD type: emphysema Emphysema type: panlobular Qualified Code(s): J43.1 - Panlobular emphysema Annotation/Comment:: No fever or bronchitic type symptoms. Note some mild hypoxia during recent hospitalization in this facility with no direct evidence of sleep apnea. Consider sleep study at a later time. (6) Confusion SNOMED Code(s): 590503827 Code(s): R41.0 - DISORIENTATION, UNSPECIFIED Status: Chronic Priority: High Current Visit: Yes Annotation/Comment:: Note progressive confusion and problems with ADLs during the last several months with patient's and family considering long term placement as above. Case management helping family with long term placement. Also additional visual hallucinations in the last 3 months. Vitamin B-12 level was low normal with previous initiation of vitamin B 12 therapy in attempt to improve his confusion with recommended repeat evaluation one month. Note that the oncologist also did mention this at time of his consultation yesterday. Progressive generalized weakness during the last several months. Note that the patient was still driving, however this should definitely be discontinued, if the patient is discharged to home. (7) Coronary arteriosclerosis, CAD SNOMED Code(s): 22704395 Code(s): I25.10 - ATHSCL HEART DISEASE OF [place] CORONARY ARTERY W/O ANG PCTRS Status: Chronic Priority: Medium Current Visit: Yes Annotation/ Comment:: As above. No chest pain or anginal complaints. Negative workup for acute MN during recent hospitalization. (8) Gastroesophageal reflux disease SNOMED Code(s): 060178527 Code(s): K21.9 - GASTRO-ESOPHAGEAL REFLUX DISEASE WITHOUT ESOPHAGITIS Status: Chronic Priority: Medium Current Visit: Yes Annotation/Comment:: No abdominal complaints at this time. Stable borderline anemia. (9) HTN, Benign hypertension SNOMED Code(s): 06311425 Code(s): I10 - ESSENTIAL (PRIMARY) HYPERTENSION Status: Chronic Priority : Medium Current Visit: Yes Annotation/Comment:: Blood pressures are under good control although somewhat variable in nature with occasional nonsymptomatic low systolic blood pressures. Continue close followup. (10) Hyperlipidemia SNOMED Code(s): 65361620 Code(s): E78.5 - HYPERLIPIDEMIA, UNSPECIFIED Status: Chronic Priority: Medium Current Visit: Yes Qualifiers: Hyperlipidemia type: unspecified Qualified Code(s): E78.5 - Hyperlipidemia , unspecified Annotation/Comment:: Under therapy (11) Hypothyroidism SNOMED Code(s): 01364191 Code(s): E03.9 - HYPOTHYROIDISM, UNSPECIFIED Status: Chronic Priority: Medium Current Visit: Yes Annotation/Comment:: TSH normal on 04/18/18. 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 (13) Peptic reflux disease SNOMED Code(s): 067077101 Code(s): K21.9 - GASTRO-ESOPHAGEAL REFLUX DISEASE WITHOUT ESOPHAGITIS Status: Chronic Priority: Medium Current Visit: Yes Annotation/Comment:: Currently nonproblematic (14) Thrombocytopenia SNOMED Code(s): 195096733 Code(s): D69.6 - THROMBOCYTOPENIA, UNSPECIFIED Status: Chronic Priority: Medium Current Visit: Yes Onset Date: 02/28/17 Annotation/Comment:: Mild thrombocytopeniastable. Observe for now - Problem List Review Problem List Initiated/Reviewed/Updated: Yes - My Orders Last 24 Hours: My Active Orders 05/02/18 05:11 CULTURE URINE [RM] Routine URINALYSIS W/MICROSCOPIC [UA W/MICROSCOPIC] [URIN] Routine - Assessment Assessment:: As above - Plan Plan:: As above. Extensive precautions were given to the patient and his family, who are in agreement with the treatment plan. Continue swing bed care in this facility until other arrangements can be made either at [facility] or [facility] in [place].
[2018-04-28] MEDS: Nitrofurantoin Monohydrate/Macrocrystalline 100 MG Cap PO SCH (19:33)
[2018-04-28] MEDS: Metoprolol Tartrate 25 MG Tab PO SCH (19:34)
[2018-04-29] MEDS: Polyethylene Glycol 3350 Powder 17 GM Packet PO SCH (08:09)
[2018-04-29] MEDS: Lutein/Minerals/Vitamin C/Vitamin E Acetate Cap PO SCH (08:09)
[2018-04-29] MEDS: Fish Oil/Omega-3 Fatty Acids 1 Gm Cap PO SCH (08:09)
[2018-04-29] MEDS: Finasteride 5 MG Tab PO SCH (08:09)
[2018-04-29] MEDS: Levothyroxine 88 MCG Tab PO SCH (08:09)
[2018-04-29] MEDS: Omeprazole 20 MG Cap.CR PO SCH (08:09)
[2018-04-29] MEDS: Cyanocobalamin (Vitamin B12) 1,000 MCG Tab PO SCH (08:09)
[2018-04-29] MEDS: Tamsulosin 0.4 MG Cap.ER PO SCH ×2 (15:15→19:56)
[2018-04-29] MEDS: Metoprolol Tartrate 25 MG Tab PO SCH (19:56)
[2018-04-29] MEDS: Nitrofurantoin Monohydrate/Macrocrystalline 100 MG Cap PO SCH (19:56)
[2018-04-30] MEDS: Polyethylene Glycol 3350 Powder 17 GM Packet PO SCH (07:57)
[2018-04-30] MEDS: Finasteride 5 MG Tab PO SCH (07:58)
[2018-04-30] MEDS: Lutein/Minerals/Vitamin C/Vitamin E Acetate Cap PO SCH (07:58)
[2018-04-30] MEDS: Levothyroxine 88 MCG Tab PO SCH (07:58)
[2018-04-30] MEDS: Cyanocobalamin (Vitamin B12) 1,000 MCG Tab PO SCH (07:58)
[2018-04-30] MEDS: Omeprazole 20 MG Cap.CR PO SCH (07:58)
[2018-04-30] MEDS: Fish Oil/Omega-3 Fatty Acids 1 Gm Cap PO SCH (07:58)
[2018-04-30] MEDS ORDERED: Finasteride 5 MG Tab PO SCH (20:00)
[2018-04-30] MEDS: Metoprolol Tartrate 25 MG Tab PO SCH (20:23)
[2018-04-30] MEDS: Nitrofurantoin Monohydrate/Macrocrystalline 100 MG Cap PO SCH (20:24)
[2018-04-30] MEDS: Tamsulosin 0.4 MG Cap.ER PO SCH (20:25)
[2018-05-01] MEDS: Fish Oil/Omega-3 Fatty Acids 1 Gm Cap PO SCH (08:06)
[2018-05-01] MEDS: Cyanocobalamin (Vitamin B12) 1,000 MCG Tab PO SCH (08:07)
[2018-05-01] MEDS: Lutein/Minerals/Vitamin C/Vitamin E Acetate Cap PO SCH (08:07)
[2018-05-01] MEDS: Polyethylene Glycol 3350 Powder 17 GM Packet PO SCH (08:07)
[2018-05-01] MEDS: Finasteride 5 MG Tab PO SCH (08:07)
[2018-05-01] MEDS: Levothyroxine 88 MCG Tab PO SCH (08:07)
[2018-05-01] MEDS: Omeprazole 20 MG Cap.CR PO SCH (08:07)
[2018-05-01] MEDS: Nitrofurantoin Monohydrate/Macrocrystalline 100 MG Cap PO SCH (20:19)
[2018-05-01] MEDS: Tamsulosin 0.4 MG Cap.ER PO SCH (20:19)
[2018-05-01] MEDS: Metoprolol Tartrate 25 MG Tab PO SCH (20:21)
[2018-05-02] MEDS: Omeprazole 20 MG Cap.CR PO SCH (08:06)
[2018-05-02] MEDS: Fish Oil/Omega-3 Fatty Acids 1 Gm Cap PO SCH (08:06)
[2018-05-02] MEDS: Polyethylene Glycol 3350 Powder 17 GM Packet PO SCH (08:06)
[2018-05-02] MEDS: Finasteride 5 MG Tab PO SCH (08:06)
[2018-05-02] MEDS: Cyanocobalamin (Vitamin B12) 1,000 MCG Tab PO SCH (08:06)
[2018-05-02] MEDS: Lutein/Minerals/Vitamin C/Vitamin E Acetate Cap PO SCH (08:06)
[2018-05-02] MEDS: Levothyroxine 88 MCG Tab PO SCH (08:06)
[2018-05-02] MEDS: Tamsulosin 0.4 MG Cap.ER PO SCH (19:45)
[2018-05-02] MEDS: Metoprolol Tartrate 25 MG Tab PO SCH (19:45)
[2018-05-03] MEDS: Omeprazole 20 MG Cap.CR PO SCH (07:59)
[2018-05-03] MEDS: Polyethylene Glycol 3350 Powder 17 GM Packet PO SCH (07:59)
[2018-05-03] MEDS: Levothyroxine 88 MCG Tab PO SCH (07:59)
[2018-05-03] MEDS: Fish Oil/Omega-3 Fatty Acids 1 Gm Cap PO SCH (07:59)
[2018-05-03] MEDS: Lutein/Minerals/Vitamin C/Vitamin E Acetate Cap PO SCH (07:59)
[2018-05-03] MEDS: Cyanocobalamin (Vitamin B12) 1,000 MCG Tab PO SCH (08:00)
[2018-05-03] MEDS: Finasteride 5 MG Tab PO SCH (08:00)
[2018-05-03] MEDS: Tamsulosin 0.4 MG Cap.ER PO SCH (19:32)
[2018-05-03] MEDS: Metoprolol Tartrate 25 MG Tab PO SCH (19:33)
[2018-05-04] MEDS: Levothyroxine 88 MCG Tab PO SCH (07:42)
[2018-05-04] MEDS: Fish Oil/Omega-3 Fatty Acids 1 Gm Cap PO SCH (07:42)
[2018-05-04] MEDS: Omeprazole 20 MG Cap.CR PO SCH (07:42)
[2018-05-04] MEDS: Finasteride 5 MG Tab PO SCH (07:42)
[2018-05-04] MEDS: Polyethylene Glycol 3350 Powder 17 GM Packet PO SCH (07:42)
[2018-05-04] MEDS: Lutein/Minerals/Vitamin C/Vitamin E Acetate Cap PO SCH (07:42)
[2018-05-04] MEDS: Cyanocobalamin (Vitamin B12) 1,000 MCG Tab PO SCH (07:42)
--- NOTE | 2018-05-04 13:11 | PCM.SN ---
- Free Text/Narrative Note: Extended care conference today with patient to be transferred from our facility to [facility] tomorrow initially in skilled care for the next 2 weeks with further decision to be made at that time whether to continue chcf care in that facility under basic care versus skilled care or transfer to [facility] in [place]. The patient's is also considering possibly moving into that facility. The patient's , daughter, and son and all caregivers, including PT, nursing staff, and this physician, are concerned about patient's safety at home. The patient is aware that he may no longer drive. All family members, etc. agree on the treatment plan, although the patient himself is somewhat reluctant to continue skilled care at this time. Emotional support was provided. 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 Follow-up UA did not show evidence of a UTI with urine culture showing contamination. No further repeat UA at this time secondary to clinical findings. Blood Work has been ordered for tomorrow with Dr. Sifuentes to round on the patient and transfer the patient to [place] at that time as above.
[2018-05-04] MEDS: Metoprolol Tartrate 25 MG Tab PO SCH (19:37)
[2018-05-04] MEDS: Tamsulosin 0.4 MG Cap.ER PO SCH (19:37)
[2018-05-05] MEDS: Levothyroxine 88 MCG Tab PO SCH (07:49)
[2018-05-05] MEDS: Fish Oil/Omega-3 Fatty Acids 1 Gm Cap PO SCH (07:49)
[2018-05-05] MEDS: Polyethylene Glycol 3350 Powder 17 GM Packet PO SCH (07:49)
[2018-05-05] MEDS: Finasteride 5 MG Tab PO SCH (07:50)
[2018-05-05] MEDS: Cyanocobalamin (Vitamin B12) 1,000 MCG Tab PO SCH (07:50)
[2018-05-05] MEDS: Lutein/Minerals/Vitamin C/Vitamin E Acetate Cap PO SCH (07:50)
[2018-05-05] MEDS: Omeprazole 20 MG Cap.CR PO SCH (07:50)
[2018-05-05 08:07] LABS: CHLORIDE,CL 105 mmol/L (98-107); SODIUM,NA 139 mmol/L (136-145)
[2018-05-05 09:55] VITALS: BP 122/60
--- NOTE | 2018-05-05 10:30 | PCM.DCSUM1 ---
Discharge Summary - Hospital Course Free Text/Narrative:: Patient is a 87-year-old who is seen with general confusion weakness multiple TIAs at this time patient is doing better still weak with nocturia 5 at a night at this time patient will be sent to residential for rehabilitation Diagnosis: Stroke: Yes Modified [place] Scale: Mod.Disablility Requiring Some Help,Able to Walk Without Assistance Modified [place] Scale Score: 3 - Discharge Data Discharge Date: 05/05/18 Discharge Disposition: DC/Tfer to [facility] Condition: Fair - Discharge Diagnosis/Problem(s) (1) Episode of shaking SNOMED Code(s): 98897135 ICD Code: R25.1 - TREMOR, UNSPECIFIED Status: Acute Current Visit: No (2) Episode of generalized weakness SNOMED Code(s): 52424895 ICD Code: R53.1 - WEAKNESS Status: Acute Current Visit: No (3) Weakness SNOMED Code(s): 10570016 ICD Code: R53.1 - WEAKNESS Status: Chronic Priority: High Current Visit : Yes Problem Details: Continue PT and OT as above with residential placement today secondary to problems with his ADLs. (4) TIA (transient ischemic attack) SNOMED Code(s): 651436949 ICD Code: G45.9 - TRANSIENT CEREBRAL ISCHEMIC ATTACK, UNSPECIFIED Status: Acute Priority: High Current Visit: Yes Onset Date: 04/18/18 Problem Details: Patient is at his normal neurological baseline with no repeat TIA suspected at this time. Qualifiers: Transient cerebral ischemia type: unspecified Qualified Code(s): G45.9 - Transient cerebral ischemic attack, unspecified (5) Confusion SNOMED Code(s): 001971014 ICD Code: R41.0 - DISORIENTATION, UNSPECIFIED Status: Chronic Priority: High Current Visit: Yes Problem Details: Note progressive confusion and problems with ADLs during the last several months with patient's and family in agreement with residential placement. - Patient Summary/Data Consults: Consultations 04/22/18 14:46 Consult to Case Management [CONS] Routine OT Evaluation and Treatment [CONS] Routine PT Evaluation and Treatment [CONS] Routine - Patient Instructions Diet: Usual Diet as Tolerated Activity: As Tolerated (Assistance with walking and ADLs) Driving: Do Not Drive Showering/Bathing: May Shower (with assistance) - Discharge Plan *PRESCRIPTION DRUG MONITORING PROGRAM REVIEWED*: Not Applicable *COPY OF PRESCRIPTION DRUG MONITORING REPORT IN PATIENT LISSA: Not Applicable Prescriptions/Med Rec: Tamsulosin [Flomax] 0.4 mg PO BEDTIME #30 cap.er Temazepam [Restoril] 15 mg PO BEDTIME PRN #30 cap PRN Reason: Insomnia Home Medications: Home Meds Acetaminophen [Tylenol] 650 mg PO Q4HR PRN 05/11/14 [History] Metoprolol Tartrate 12.5 mg PO BEDTIME 05/11/14 [History] Polyethylene Glycol 3350 [MiraLAX] 17 gm PO ASDIRECTED 09/01/17 [History] Finasteride [Proscar] 5 mg PO DAILY 04/18/18 [History] Fish Oil/[place]-3 Fatty Acids [Fish Oil 1,000 MG] 1 cap PO DAILY 04/18/18 [ History] Levothyroxine [Synthroid] 88 mcg PO ACBREAKFAST 04/18/18 [History] Vit A/Vit C/Vit E/Zinc/Copper [Preservision] 1 tab PO DAILY 04/18/18 [History] Cyanocobalamin (Vitamin B12) [Vitamin B12] 1,000 mcg PO DAILY 04/22/18 [History] Enoxaparin [Lovenox] 30 mg SUBCUT BEDTIME 04/22/18 [History] Omeprazole 20 mg PO DAILY 04/22/18 [History] Tamsulosin [Flomax] 0.4 mg PO BEDTIME #30 cap.er 05/05/18 [Rx] Temazepam [Restoril] 15 mg PO BEDTIME PRN #30 cap 05/05/18 [Rx] Patient Handouts: Nitrofurantoin tablets or capsules, Vitamin B12 oral, Tamsulosin capsules, Fall Prevention in Hospitals, Adult, Transient Ischemic Attack, [id number] Referrals: Nursing, Home [Other] - Discharge Summary/Plan Comment DC Time >30 min.: Yes (45 min) - General Info Date of Service: 05/05/18 - Review of Systems General: Reports: Weakness, Fatigue HEENT: Reports: No Symptoms Pulmonary: Reports: No Symptoms Cardiovascular: Reports: No Symptoms Gastrointestinal: Reports: No Symptoms Genitourinary: Reports: No Symptoms Musculoskeletal: Reports: No Symptoms Skin: Reports: No Symptoms Neurological: Reports: Confusion (at times) Psychiatric: Reports: Agitation (about residential placement) - Patient Data Vitals - Most Recent: Last Vital Signs Temp 98.2 F 05/05/18 09:30 Pulse 68 05/05/18 09:30 Resp 18 05/05/18 09:30 BP 122/60 05/05/18 09:30 Pulse Ox 99 05/05/18 09:30 Weight - Most Recent: 135 lb 8 oz I&O - Last 24 hours: Intake & Output 05/04/18 05/05/18 05/05/18 22:59 06:59 14:59 Intake Total 600 Output Total 550 150 Balance -550 450 Lab Results - Last 24 hrs: Laboratory Results - last 24 hr 05/05/18 05/05/18 Range/Units 07:25 07:25 WBC 5.1 (4.0-10.2) K/uL RBC 3.90 L (4.33-5.41) M/uL Hgb 12.0 L (13.1-16.8) g/dL Hct 34.7 L (39.0-49.0) % MCV 89.0 (84.0-98.0) fL MCH 30.8 (28.2-33.3) pg MCHC 34.6 (31.7-36.0) g/dL RDW 13.3 (11.2-14.1) % Plt Count 120 L (150-350) K/uL Neut % (Auto) 61.3 (45.0-80.0) % Lymph % (Auto) 24.0 (10.0-50.0) % Saline % (Auto) 9.2 (2.0-14.0) % Eos % (Auto) 4.9 (0.0-5.0) % Baso % (Auto) 0.6 (0.0-2.0) % Neut # (Auto) 3.14 (1.40-7.00) K/uL Lymph # (Auto) 1.23 (0.50-3.50) K/uL Saline # (Auto) 0.47 (0.00-1.00) K/uL Eos # (Auto) 0.25 (0.00-0.50) K/uL Baso # (Auto) 0.03 (0.00-0.20) K/uL Sodium 139 (136-145) mmol/L Potassium 3.9 (3.5-5.1) mmol/L Chloride 105 (98-107) mmol/L Carbon Dioxide 25.4 (21.0-32.0) mmol/L BUN 17 (7-18) mg/dL Creatinine 0.80 (0.51-1.17) mg/dL Est Cr Clr Drug Dosing 56.55 mL/min Estimated GFR (MDRD) > 60 mL/min Glucose 105 (74-106) mg/dL Calcium 8.6 (8.5-10.1) mg/dL Total Bilirubin 0.6 (0.2-1.0) mg/dL AST 13 L (15-37) U/L ALT 18 (12-78) U/L Alkaline Phosphatase 61 (46-116) IU/L Creatine Kinase 37 (26-308) U/L Creatine Kinase Index 3.0 H (0.0-2.5) % CK-MB (CK-2) 1.10 (0.00-3.60) ng/mL Troponin I 0.001 (0.000-0.056) ng/mL NT-Pro-B Natriuret Pep 768 H (0-125) pg/mL Total Protein 5.6 L (6.4-8.2) g/dL Albumin 2.9 L (3.4-5.0) g/dL Folate 12.9 (8.6-58.9) ng/mL EH Results - Last 24 hrs: Microbiology 05/02/18 07:25 Urine Culture - Final Urine, Clean Catch Med Orders - Current: Current Medications Acetaminophen (Tylenol) 650 mg PO Q4HR PRN PRN Reason: Pain Last Admin: 04/29/18 23:12 Dose: 650 mg Cyanocobalamin (Vitamin B12) 1,000 mcg PO DAILY [facility] [place] Last Admin: 05/05/18 07:50 Dose: 1,000 mcg Finasteride (Proscar) 5 mg PO DAILY [facility] [place] Last Admin: 05/05/18 07:50 Dose: 5 mg Fish Oil (Fish Oil) 1 gm PO DAILY [facility] [place] Last Admin: 05/05/18 07:49 Dose: 1 gm Levothyroxine Sodium (Synthroid) 88 mcg PO ACBREAKFAST [facility] [place] Last Admin: 05/05/18 07:49 Dose: 88 mcg Metoprolol Tartrate (Lopressor) 12.5 mg PO BEDTIME [facility] [place] Last Admin: 05/04/18 19:37 Dose: 12.5 mg Omeprazole (Omeprazole) 20 mg PO DAILY [facility] [place] Last Admin: 05/05/18 07:50 Dose: 20 mg Polyethylene Glycol (Miralax) 17 gm PO DAILY [facility] [place] Last Admin: 05/05/18 07:49 Dose: 17 gm Sodium Chloride (Saline Flush) 10 ml FLUSH ASDIRECTED PRN PRN Reason: Keep Vein Open Last Admin: 04/26/18 08:11 Dose: 10 ml Tamsulosin HCl (Flomax) 0.4 mg PO BEDTIME [facility] [place] Last Admin: 05/04/18 19:37 Dose: 0.4 mg Temazepam (Restoril) 15 mg PO BEDTIME PRN PRN Reason: Insomnia Last Admin: 04/29/18 23:12 Dose: 15 mg Vit C/Vit E/Zinc/Copper/Lutein (Ocuvite Lutein) 1 each PO DAILY [facility] [place] Last Admin: 05/05/18 07:50 Dose: 1 each Discontinued Medications Enoxaparin Sodium (Lovenox) 30 mg SUBCUT BEDTIME [facility] [place] Last Admin: 04/25/18 20:41 Dose: 30 mg Nitrofurantoin Macrocrystals (Macrobid) 100 mg PO BEDTIME [facility] [place] Stop: 05/01/18 20:00 Last Admin: 05/01/18 20:19 Dose: 100 mg Polyethylene Glycol (Miralax) 17 gm PO ASDIRECTED [facility] [place] Tamsulosin HCl (Flomax) 0.4 mg PO DAILY@0700 [facility] [place] Last Admin: 04/29/18 15:15 Dose: Not Given - Exam General: Reports: Alert, Oriented HEENT: Reports: Pupils Equal, Pupils Reactive, EOMI, Mucous Membr. Moist/[place] Neck: Reports: Supple Lungs: Reports: Clear to Auscultation, Normal Respiratory Effort Cardiovascular: Reports: Regular Rate, Regular Rhythm GI/Abdominal Exam: Normal Bowel Sounds, Soft, Non-Tender, No Organomegaly, No Distention, No Abnormal Bruit, No Mass, Pelvis Stable (Male) Exam: Deferred Rectal (Males) Exam: Deferred Back Exam: Reports: Normal Inspection, Full Range of Motion Extremities: Normal Inspection, Normal Range of Motion, Non-Tender, No Pedal Edema, Normal Capillary Refill Skin: Reports: Warm, Dry, Intact Neurological: Reports: No New Focal Deficit Psy/Mental Status: Reports: Alert, Agitated (about residential placement)
== END 2018-05-05 11:40 | DRG 948 ==
LOC: LL.MS 14:41 → UNDOADMIN 14:46
PROVIDERS: ADMIT Emergency Medicine; ATTEND Family Medicine
DX: R53.1 Weakness (principal); R41.0 Disorientation, unspecified; H91.90 Unspecified hearing loss, unspecified ear; N20.0 Calculus of kidney; I11.0 Hypertensive heart disease with heart failure; I50.9 Heart failure, unspecified; J44.9 Chronic obstructive pulmonary disease, unspecified; I25.10 Atherosclerotic heart disease of native coronary artery without angina pectoris; K21.9 Gastro-esophageal reflux disease without esophagitis; R35.1 Nocturia; E78.5 Hyperlipidemia, unspecified; E03.9 Hypothyroidism, unspecified; F41.8 Other specified anxiety disorders; D69.6 Thrombocytopenia, unspecified; F09 Unspecified mental disorder due to known physiological condition; Z86.73 Personal history of transient ischemic attack (TIA), and cerebral infarction without residual deficits; Z79.899 Other long term (current) drug therapy; Z79.82 Long term (current) use of aspirin
CPT/HCPCS: 36415; 51798; 80053; 81001; 82272; 82550; 82553; 82746; 83880; 84484; 85025; 87086; 87088; 87338; 97110-GO; 97110-GP; 97112-GP; 97116-GP; 97161-GP; 97165-GO; 97530-GO; 97530-GP; 97535-GO; A9270-GY; J1650; J7050